=== PATIENT | female | born 1965 | race Caucasian/White ===

== ENCOUNTER 2023-12-29 16:24 | Outpatient (OUT) | payer OTHER, SELFPAY ==
--- NOTE | 2023-12-29 16:25 | XR_ITS ---
The [address] [address] Patient Name: JOSÉ MIGUEL JOHNSON MRN: [id number] date: 1965 Sex: F Assigned Patient Location: RAD Current Patient Location: RAD Accession/Order Number: [id number] Exam Date: 12/29/2023 16:28 Report Date: 12/29/2023 16:47 At the request of: DAVID HERMOSILLO Procedure: XR chest 2V EXAM: XR chest 2V HISTORY: chronic cough R05.3 for 3 months. COMPARISON: 09/24/2017 TECHNIQUE: Upright PA and lateral chest x-ray FINDINGS: The heart is not enlarged and the vasculature is not distended. Focal atelectasis or scarring projects from the right hilum into the midline, which is unchanged. No acute infiltrate, effusion or pneumothorax is identified. Degenerative changes are seen in the spine. Hardware projects over the lower cervical spine. XR/XR chest 2V IMPRESSION: No acute infiltrate or evidence of cardiac decompensation. A small amount of atelectasis or scarring is seen in the right midlung. The overall appearance of the chest has not changed significantly. Electronically authenticated by: ADAMARIS DE LEON Date: 12/29/2023 16:47
== END 2023-12-29 16:25 | disposition home or self-care (01) ==
LOC: RAD 16:24
PROVIDERS: Visit Provider Family Medicine
DX: R05.3 Chronic cough (principal)
CPT/HCPCS: 71046

== ENCOUNTER 2024-01-16 08:39 | Outpatient (OUT) | payer OTHER, SELFPAY ==
--- NOTE | 2024-01-16 08:41 | CT_ITS ---
[address] [address] Patient Name: JOSÉ MIGUEL JOHNSON MRN: [id number] date: 1965 Sex: F Assigned Patient Location: CT Current Patient Location: CT Accession/Order Number: [id number] Exam Date: 01/16/2024 08:45 Report Date: 01/16/2024 09:22 At the request of: DAVID HERMOSILLO Procedure: CT chest wo con EXAMINATION: CT chest wo con HISTORY: chronic cough COMPARISON: No relevant comparison available. TECHNIQUE: Multi-planar CT images were obtained without and/or with IV contrast as indicated by examination type. Axial, Coronal, and Sagittal images. Dose reduction techniques were achieved by using automated exposure control and/or adjustment of mA and/or kV according to patient size and/or use of iterative reconstruction technique. FINDINGS: LUNGS: No visible pulmonary disease. PLEURA: No mass, effusion, or pneumothorax. VASCULATURE: No abnormality. OBDULIA: No mass or adenopathy. MEDIASTINUM: No mass or adenopathy. CARDIAC: No enlargement, pericardial thickening, or significant calcification. AORTA: No aneurysm or dissection. CHEST WALL: No mass or axillary adenopathy. BONES: No bone lesion or fracture. LIMITED ABDOMEN: No suspicious findings Limited images of the upper abdomen. OTHER: Negative. CT/CT chest wo con IMPRESSION: 1. No abnormal or suspicious findings to account for patient's symptoms. Electronically authenticated by: FILIBERTO LANDON Date: 01/16/2024 09:22
== END 2024-01-16 08:40 | disposition home or self-care (01) ==
LOC: CT 08:40
PROVIDERS: Visit Provider Family Medicine
DX: R05.3 Chronic cough (principal)
CPT/HCPCS: 71250

== ENCOUNTER 2024-03-05 08:32 | Outpatient (OUT) | payer OTHER, SELFPAY ==
--- OUTSIDE RECORDS SUMMARY | 2024-03-05 08:35 | XMS_ITS | CCD ---
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 Role Phone PHYSICIAN, DEFAULT Unavailable Unavailable PHYSICIAN, DEFAULT Unavailable Unavailable HOY, DAVID Unavailable Unavailable PHYSICIAN, DEFAULT Unavailable Unavailable PHYSICIAN, DEFAULT Unavailable Unavailable HOY, DAVID Unavailable Unavailable HOY ., DR HERNANDEZ Primary Care Unavailable ZIEBER, DR AMADOU [employer] Unavailable HIGHLANDER, PETER D Admitting Unavailable HIGHLANDER, PETER D Attending Unavailable HIGHLANDER, PETER D Consulting Unavailable HOY ., DR HERNANDEZ Primary Care Unavailable ZIEBER, DR AMADOU [employer] Unavailable HIGHLANDER, PETER D Admitting Unavailable HIGHLANDER, PETER D Attending Unavailable HIGHLANDER, PETER D Consulting Unavailable HOY ., DR HERNANDEZ Primary Care Unavailable HOY ., DR HERNANDEZ Attending Unavailable HOY ., DR HERNANDEZ Admitting Unavailable HOY ., DR HERNANDEZ Consulting Unavailable HOY ., DR HERNANDEZ Primary Care Unavailable ZIEBER, DR AMADOU [employer] Unavailable RADHA, JAIRO Attending Unavailable RADHA, JAIRO Admitting Unavailable RADHA, JAIRO Consulting Unavailable HOY ., DR HERNANDEZ Primary Care Unavailable ZIEBER, DR AMADOU [employer] Unavailable RADHA, JAIRO Admitting Unavailable RADHA, JAIRO Attending Unavailable RADHA, JAIRO Consulting Unavailable HOY ., DR HERNANDEZ Primary Care Unavailable ZIEBER, DR AMADOU [employer] Unavailable HIGHLANDER, PETER D Admitting Unavailable HIGHLANDER, PETER D Attending Unavailable HIGHLANDER, PETER D Consulting Unavailable GABINO LOPES Consulting Unavailable GEMMA .MAXIMILIANO Consulting Unavailable LUZ HAMMOND Consulting Unava MATTY Stevens Consulting Unavailable HOY ., DR HERNANDEZ Primary Care Unavailable HIGHLANDER, PETER D Admitting Unavailable HIGHLANDER, PETER D Consulting Unavailable HIGHLANDER, PETER D Attending Unavailable HOY ., DR HERNANDEZ Primary Care Unavailable HIGHLANDER, PETER D Admitting Unavailable HIGHLANDER, PETER D Attending Unavailable HOY ., DR HERNANDEZ Consulting Unavailable HOY ., DR HERNANDEZ Attending Unavailable HOY ., DR HERNANDEZ Admitting Unavailable HOY ., DR HERNANDEZ Primary Care Unavailable HOY ., DR HERNANDEZ Consulting Unavailable HOY ., DR HERNANDEZ Attending Unavailable HOY ., DR HERNANDEZ Admitting Unavailable HOY ., DR HERNANDEZ Primary Care Unavailable ZIEBER, DR AMADOU [employer] Unavailable RADHA, JAIRO Admitting Unavailable RADHA, JAIRO Consulting Unavailable RADHA, JAIRO Attending Unavailable HOY ., DR HERNANDEZ Primary Care Unavailable FEIDERBUZZ Consulting Unavailable HOY ., DR HERNANDEZ Primary Care Unavailable ZIEBER, DR AMADOU [employer] Unavailable HIGHLANDER, PETER D Admitting Unavailable HIGHLANDER, PETER D Attending Unavailable HIGHLANDER, PETER D Consulting Unavailable HOY ., DR HERNANDEZ Primary Care Unavailable ZIEBER, DR AMADOU [employer] Unavailable HIGHLANDER, PETER D Admitting Unavailable HIGHLANDER, PETER D Attending Unavailable HIGHLANDER, PETER D Consulting Unavailable HOY ., DR HERNANDEZ Primary Care Unavailable BENEDICT, DR DE LOS SANTOS Consulting Unavailable BENEDICT, DR DE LOS SANTOS Attending Unavailable BENEDICT, DR DE LOS SANTOS Admitting Unavailable YEH, ANDREW Consulting Unavailable Problems Active Problems Problem Classification Problem Date Documented Date Episodic/Chronic Acquired foot deformities (6 sources) Hallux rigidus, left foot; Translations: [Other hammer toe(s) (acquired), left foot] Onset: 10-11-2022 Chronic Osteoarthritis (4 sources) Primary osteoarthritis, left ankle and foot; Translations: [PRIMARY OSTEOARTHRITIS LT ANK FOOT] Onset: 03-10-2023 Chronic Other screening for suspected conditions (not mental disorders or infectious disease) (1 source) Encounter for screening mammogram for malignant neoplasm of breast; Translations: [ENC SCR MAMMO MALIG NEOPLASM BREAST] Onset: 02-27-2023 Episodic Residual codes; unclassified (4 sources) Obstructive sleep apnea (adult) (pediatric); Translations: [OBSTRUCTIVE SLEEP APNEA] Onset: 03-03-2023 Chronic Residual codes; unclassified (1 source) Family history of malignant neoplasm of breast; Translations: [FAMILY HX MALIG NEOPLASM OF BREAST] Onset: 02-27-2023 Episodic Residual codes; unclassified (1 source) Family history of malignant neoplasm of digestive organs; Translations: [FAM HX MALIG NEOPLASM DIGESTIV ORGN] Onset: 02-27-2023 Episodic Unclassified (4 sources) CONTACT W/AND (SUSP) EXPOS COVID-19; Translations: [CONTACT W/AND (SUSP) EXPOS COVID-19] Onset: 10-31-2022 Unclassified (1 source) COUGH, UNSPECIFIED; Translations: [COUGH, UNSPECIFIED] Onset: 11-30-2022 Past or Other Problems Problem Classification Problem Date Documented Da te Episodic/Chronic Conditions associated with dizziness or vertigo (4 sources) Dizziness and giddiness; Translations: [DIZZINESS AND GIDDINESS] Onset: 11-19-2022 Episodic Other connective tissue disease (1 source) Arthrodesis status; Translations: [ARTHRODESIS STATUS] Onset: 12-04-2022 Episodic Other connective tissue disease (4 sources) Other specified soft tissue disorders; Translations: [OTHER SPEC SOFT TISSUE DISORDERS] Onset: 10-30-2022 Episodic Other connective tissue disease (5 sources) Pain in right foot; Translations: [PAIN IN RIGHT FOOT] Onset: 03-26-2022 Episodic Other non-traumatic joint disorders (1 source) Other specified joint disorders, left ankle and foot; Translations: [OTHER SPEC JOINT D/O LT ANKLE FOOT] Onset: 10-27-2022 Episodic Other non-traumatic joint disorders (4 sources) Pain in right ankle and joints of right foot; Translations: [PAIN IN RIGHT ANKLE] Onset: 06-25-2022 Episodic Other upper respiratory disease (1 source) Nasal congestion; Translations: [NASAL CONGESTION] Onset: 11-30-2022 Episodic Unclassified (1 source) CONTACT W/AND (SUSP) EXPOS COVID-19; Translations: [CONTACT W/AND (SUSP) EXPOS COVID-19] Onset: 11-28-2022 Results Test Name Value Interpretation Reference Range Facility INSULINon 02-24-2023 Insulin 19.8 uIU/mL Normal 2.6-24.9 [facility] Comment on above: Performed By: #### I NSULIN #### [facility] [address] [place] [id number] [address] Hunter Weaver CBC AUTO DIFFon 02-23-2023 BASO # 0.0 103/ul Normal 0.0-0.1 [facility] Comment on above: Performed By: #### C BC #### [facility] [address] [place] [address] Dr. Hunter Weaver Basophils/100 WBC (Bld) 0.3 % Normal 0.2-2.0 [facility] Comment on above: Performed By: #### C BC #### [facility] [address] [place] [address] Dr. Hunter Weaver EO # 0.1 103/ul Normal 0.0-0.7 [facility] Comment on above: Performed By: #### C BC #### [facility] [address] [place] [address] Dr. Hunter Weaver Eosinophils/100 WBC (Bld) 1.5 % Normal 0.9-7.0 [facility] Comment on above: Performed By: #### C BC #### [facility] [address] [place] [address] Dr. Hunter Weaver Erythrocyte distribution width (RBC) [Ratio] 12.3 % Normal 11.0-15.0 [facility] Comment on above: Performed By: #### C BC #### [facility] [address] [place] [address] Dr. Hunter Weaver Hematocrit (Bld) [Volume fraction] 40.4 % Normal 36.0-48.0 [facility] Comment on above: Performed By: #### C BC #### [facility] [address] [place] [address] Dr. Hunter Weaver Hemoglobin (Bld) [Mass/Vol] 13.5 g/dL Normal 12.0-16.0 [facility] Comment on above: Performed By: #### C BC #### [facility] [address] [place] [address] Dr. Hunter Weaver IG # 0.06 10e3/ul Critically high 0.00-0.03 [facility] Comment on above: Performed By: #### C BC #### [facility] [address] [place] [address] Dr. Hunter Weaver IG % 0.7 % Critically high 0.0-0.5 [facility] Comment on above: Performed By: #### C BC #### [facility] [address] [place] [address] Dr. Hunter Weaver LYMPH # 3.2 103/ul Normal 1.2-3.8 [facility] Comment on above: Performed By: #### C BC #### [facility] [address] [place] [address] Dr. Hunter Weaver Lymphocytes/100 WBC (Bld) 34.5 % Normal 20.5-60.0 [facility] Comment on above: Performed By: #### C BC #### [facility] [address] [place] [address] Dr. Hunter Weaver MANUAL DIFF REQ NO Normal [facility] Comment on above: Performed By: #### C BC #### [facility] [address] [place] [address] Dr. Hunter Weaver MCH (RBC) [Entitic mass] 31.3 pg Normal 26.7-34.0 [facility] Comment on above: Performed By: #### C BC #### [facility] [address] [place] [address] Dr. Hunter Weaver MCHC (RBC) [Mass/Vol] 33.4 g/dL Normal 29.9-35.2 [facility] Comment on above: Performed By: #### C BC #### [facility] [address] [place] [address] Dr. Hunter Weaver MCV (RBC) [Entitic vol] 93.5 fL Normal 81.0-99.0 [facility] Comment on above: Performed By: #### C BC #### [facility] [address] [place] [address] Dr. Hunter Weaver MONO # 0.6 103/ul Normal 0.3-0.8 [facility] Comment on above: Performed By: #### C BC #### [facility] [address] [place] [address] Dr. Hunter Weaver Monocytes/100 WBC (Bld) 6.4 % Normal 1.7-12.0 [facility] Comment on above: Performed By: #### C BC #### [facility] [address] [place] [address] Dr. Hunter Weaver NEUT # 5.2 103/ul Normal 1.4-6.5 [facility] Comment on above: Performed By: #### C BC #### [facility] [address] [address] [address] Hunter Weaver Neutrophils/100 WBC (Bld) 56.6 % Normal 43.0-75.0 [facility] Comment on above: Performed By: #### C BC #### [facility] [address] [address] [address] Hunter Weaver Platelet mean volume (Bld) [Entitic vol] 9.8 fL Normal 9.5-13.5 [facility] Comment on above: Performed By: #### C BC #### [facility] [address] [place] [address] Dr. Hunter Weaver PLT 285 103/ul Normal 150-450 [facility] Comment on above: Performed By: #### C BC #### [facility] [address] [place] [address] Dr. Hunter Weaver RBC 4.32 106/ul Normal 4.20-5.40 [facility] Comment on above: Performed By: #### C BC #### [facility] [address] [place] [address] Dr. Hunter Weaver WBC 9.2 103/ul Normal 4.0-11.0 [facility] Comment on above: Performed By: #### C BC #### [facility] [address] [place] [address] Dr. Hunter Weaver FREE THYROXINE INDEX T7on FTI 3.98 Normal 1.30-4.50 [facility] Comment on above: Performed By: #### C MP, LIPID, T7, TSH ####[facility] [address] [place] [address]Dr. Hunter Weaver T3U 39.0 % Normal 30.0-39.0 [facility] Comment on above: Performed By: #### C MP, LIPID, T7, TSH ####[facility] [address] [place] [id number]. Hunter Weaver T4 [Mass/Vol] 10.20 ug/dL Normal 4.80-13.90 [facility] Comment on above: Performed By: #### C MP, LIPID, T7, TSH ####[facility] [address] [place] [address]DrArt Weaver GLYCOHEMOGLOBIN A1Con 2022 ADA RECOMMENDATION SEE BELOW Normal [facility] Comment on above: Result Comment: ADA RECOMMENDED LIMIT 4.0 - 6.0 ADA THERAPEUTIC TARGET < 7.0 ACTION SUGGESTED > 7.0 Performed By: #### A 1C ####[facility] [address] [place] [address]DrArt Weaver Glucose [Mass/Vol] 111 mg/dL Normal [facility] Comment on above: Performed By: #### A 1C ####[facility] [address] [place] [address]DrArt Weaver HbA1c (Bld) [Mass fraction] 5.5 % Normal 4.5-6.2 [facility] Comment on above: Performed By: #### A 1C ####[facility] [address] [place] [address]DrArt Weaver IRONon 02-23-2023 Iron [Mass/Vol] 165.0 ug/dL Normal 50.0-170.0 [facility] Comment on above: Performed By: #### I MATTHEW #### [facility] [address] [address] [address] Hunter Weaver LIPID PROFILEon 02-23-2023 CHOL-HDL RATIO NORM SEE BELOW Normal [facility] Comment on above: Result Comment: 3.3 - 4.4 LOW RISK 4.4 - 7.1 AVERAGE RISK 7.1 - 11.0 MODERATE RISK >11.0 HIGH RISK Performed By: #### C MP, LIPID, T7, TSH ####[facility] [address] [place] [address]DrArt Weaver Cholesterol [Mass/Vol] 192 mg/dL Normal <=200 [facility] Comment on above: Performed By: #### C MP, LIPID, T7, TSH ####[facility] [address] [place] [address]Dr. Hunter Weaver Cholesterol in HDL [Mass/Vol] 58 mg/dL Normal 40-60 [facility] Comment on above: Performed By: #### C MP, LIPID, T7, TSH ####[facility] [address] [place] [id number]. Hunter Weaver Cholesterol in LDL [Mass/Vol] 109.6 mg/dL Normal [facility] Comment on above: Performed By: #### C MP, LIPID, T7, TSH ####[facility] [address] [place] [phone]. Hunter Weaver Cholesterol.total/ Cholesterol in HDL [Mass ratio] 3.3 {ratio} Normal [facility] Comment on above: Performed By: #### C MP, LIPID, T7, TSH ####[facility] [address] [place] [id number]. Hunter Weaver HDL NORMAL > or = 60 mg/dl - LO W CARDIOVASCULAR RISK <40 mg/dl - HIGH CARDIOVASCULAR RISK Normal [facility] Comment on above: Performed By: #### C MP, LIPID, T7, TSH ####[facility] [address] [place] [id number]. Hunter Weaver LDL CALC NORMAL SEE BELOW Normal [facility] Comment on above: Result Comment: <100 mg/dl OPTIMAL 100 - 129 mg/dl NEAR OR ABOVE OPTIMAL 130 - 159 mg/dl BORDERLINE HIGH 160 - 189 mg/dl HIGH >190 mg/dl VERY HIGH Performed By: #### C MP, LIPID, T7, TSH ####[facility] [address] [place] [phone]. Hunter Weaver Triglyceride [Mass/Vol] 122 mg/dL Normal <=150 [facility] Comment on above: Performed By: #### C MP, LIPID, T7, TSH ####[facility] [address] [place] [phone]. Hutner Weaver VLDL CALC 24.4 mg/dL Normal [facility] Comment on above: Performed By: #### C MP, LIPID, T7, TSH ####[facility] [address] [place] [phone]. Hunter Weaver MG MAMM SCREEN 3D KHADAR CADon 02-23-2023 MG MAMM SCREEN 3D KHADAR CAD Patient: GISSELL FISHER Exam Date: 02/23/2023 : 1965 Gender:F Ordering : DR DAVID ALBRECHT . Admission #: [id number] Family : Order #: [id number] CLICK HERE TO VIEW EXAM RADIOLOGY REPORT PROCEDURE: MAMMOGRAM SCREENING 3D BILATERAL CAD COMPARISON: MG MAMM SCREEN 3D KHADAR CAD, 09/02/2021. MG MAMM SCREEN KHADAR W CAD, 08/08/2020. MG MAMM SCREEN KHADAR W CAD, 06/13/2019. DIGITIZED_MAMMO, 03/15/2009. INDICATIONS: Screening mammography Calculator Name NCI Breast Cancer Risk Assessment Tool 5 Year Breast Cancer Risk 2.00% Lifetime Breast Cancer Risk 11.50% Personal Breast Cancer No Personal Ovarian Cancer No Treatments None Family Cancers Grandmother-paternal with breast cancer at age 75; Mother with colon cancer at age 65. LOCATION: [facility] BREAST COMPOSITION: Heterogeneously dense,which may obscure small masses. FINDINGS: DIAGNOSTIC CATEGORY 2--BENIGN FINDING: RIGHT BREAST: No significant suspicious finding. Scattered benign-appearing nodules are present. No significant change has occurred. LEFT BREAST: No significant suspicious finding. Scattered benign-appearing nodules are present. Scattered benign-appearing calcifications are present. No significant change has occurred. RECOMMENDATIONS: ROUTINE MAMMOGRAM AND CLINICAL EVALUATION IN 12 MONTHS. PLEASE NOTE: A NORMAL MAMMOGRAM DOES NOT EXCLUDE THE POSSIBILITY OF BREAST CANCER. A CLINICALLY SUSPICIOUS PALPABLE LUMP SHOULD BE BIOPSIED. Dictated by: Amadou Scruggs M.D. on 02/23/2023 at 10:57 Approved by: Amadou Scruggs M.D. on 02/23/2023 at 11:02 Normal [facility] PROF 14(COMP METB)on 023 Albumin [Mass/Vol] 3.6 g/dL Normal 3.4-5.0 [facility] Comment on above: Performed By: #### C MP, LIPID, T7, TSH ####[facility] [address] [place], [place] [address]Xt. Haylieisa Weaver Albumin/Globulin [Mass ratio] 1.1 {ratio} Normal [facility] Comment on above: Performed By: #### C MP, LIPID, T7, TSH ####[facility] [address] [place] [address]Dr. Hunter Weaver ALP [Catalytic activity/Vol] 114 U/L Normal 46-116 [facility] Comment on above: Performed By: #### C MP, LIPID, T7, TSH ####[facility] [address] [place] [address]Dr. Hunter Weaver ALT [Catalytic activity/Vol] 20 U/L Normal 14-59 [facility] Comment on above: Performed By: #### C MP, LIPID, T7, TSH ####[facility] [address] [place] [address]Dr. Hunter Weaver Anion gap [Moles/Vol] 13.2 mmol/L Normal [facility] Comment on above: Performed By: #### C MP, LIPID, T7, TSH ####[facility] [address] [place] [address]Dr. Hunter Weaver AST [Catalytic activity/Vol] 17 U/L Normal 15-37 [facility] Comment on above: Performed By: #### C MP, LIPID, T7, TSH ####[facility] [address] [place], [place] [address]Dr. Hunter Weaver Bilirubin [Mass/Vol] 0.5 mg/dL Normal 0.2-1.0 [facility] Comment on above: Performed By: #### C MP, LIPID, T7, TSH ####[facility] [address] [place] [address]Dr. Hunter Weaver Calcium [Mass/Vol] 8.4 mg/dL Critically low 8.5-10.1 [facility] Comment on above: Performed By: #### C MP, LIPID, T7, TSH ####[facility] [address] [place] [address]Dr. Hunter Weaver Chloride [Moles/Vol] 105 mmol/L Normal 98-107 [facility] Comment on above: Performed By: #### C MP, LIPID, T7, TSH ####[facility] [address] [place] [address]Dr. Hunter Weaver CO2 [Moles/Vol] 28.7 mmol/L Normal 21.0-32.0 [facility] Comment on above: Performed By: #### C MP, LIPID, T7, TSH ####[facility] [address] [place] [address]Dr. Hunter Weaver Creatinine [Mass/Vol] 0.65 mg/dL Normal 0.55-1.02 [facility] Comment on above: Performed By: #### C MP, LIPID, T7, TSH ####[facility] [address] [place] [address]Dr. Hunter Weaver EGFR-AF CITIZEN OF [place] >60 Normal >=60 [facility] Comment on above: Performed By: #### C MP, LIPID, T7, TSH ####[facility] [address] [place] [address]Dr. Hunter Weaver EGFR-NON AF CITIZEN OF THE [place] >60 Normal >=60 [facility] Comment on above: Performed By: #### C MP, LIPID, T7, TSH ####[facility] [address] [place] [address]Dr. Hunter Weaver Globulin (S) [Mass/Vol] 3.3 g/dL Normal [facility] Comment on above: Performed By: #### C MP, LIPID, T7, TSH ####[facility] [address] [place] [address]Dr. Hunter Weaver Glucose [Mass/Vol] 122 mg/dL Critically high 74-106 T [facility] Comment on above: Performed By: #### C MP, LIPID, T7, TSH ####[facility] [address] [place] [phone]. Hunter Weaver Potassium [Moles/Vol] 3.9 mmol/L Normal 3.5-5.1 [facility] Comment on above: Performed By: #### C MP, LIPID, T7, TSH ####[facility] [address] [place] [address]Dr. Hunter Weaver Protein [Mass/Vol] 6.9 g/dL Normal 6.4-8.2 [facility] Comment on above: Performed By: #### C MP, LIPID, T7, TSH ####[facility] [address] [place] [phone]. Hunter Weaver Sodium [Moles/Vol] 143 mmol/L Normal 136-145 [facility] Comment on above: Performed By: #### C MP, LIPID, T7, TSH ####[facility] [address] [place] [phone]. Hunter Weaver Urea nitrogen [Mass/Vol] 12.0 mg/dL Normal 7.0-18.0 [facility] Comment on above: Performed By: #### C MP, LIPID, T7, TSH ####[facility] [address] [place] [address]Dr. Hunter Weaver Urea nitrogen/Creatinin e [Mass ratio] 18.5 mg/mg Normal [facility] Comment on above: Performed By: #### C MP, LIPID, T7, TSH ####[facility] [address] [place] [address]Dr. Hunter Weaver TSHon 02-23-2023 TSH Qn m[IU]/L Critically low 0.358-3.740 [facility] Comment on above: Performed By: #### C MP, LIPID, T7, TSH ####[facility] [address] [place] [address]Dr. Hunter Weaver Covid-19 PCR (CVDTB)on SARS-CoV-2 (COVID-19) RNA CHRIS+probe Ql (Unsp spec) Not detected Normal NOT DETECTED [facility] Comment on above: Result Comment: When diagnostic testing is negative, the possibility of a false negative should be considered in the context of a patient's recent exposures and the presence of clinical signs and symptoms consistent with SARS-CoV-2. This test is not yet approved or cleared by the [place] FDA. When there are no FDA-approved or cleared tests available, and other criteria are met, FDA can make tests available under an emergency access mechanism called an Emergency Use Authorization (EUA). The EUA for this test is supported by the [place] of Health and Human Service's declaration that circumstances exist to justify the emergency use of in vitro diagnostics for the detection and/or diagnosis of the virus that causes COVID-19. This EUA will remain in effect for the duration of the COVID-19 declaration justifying emergency of IVDs, unless it is terminated or revoked by the FDA (after which the test may no longer be used). Performed By: #### C VDTB ####[facility] [address] [place], [place] [address]WtDr. Hunter Weaver INFLUENZA A AND B AGon 11-28 DOWN [facility] SEE BELOW Normal [facility] Comment on above: Result Comment: Nega tive for Flu A protein angiten. Infection due to Flu A cannot be ruled out. Flu A angiten in the sample may be below the detection limit of the test. Performed By: #### I NFLUAB #### [facility] [address] [place] [address] Dr. Hunter Weaver [facility] SEE BELOW Normal [facility] Comment on above: Result Comment: Nega tive for Flu B protein antigen. Infection due to Flu B cannot be ruled out. Flu B antigen in the sample may be below the detection limit of the test. Performed By: #### I NFLUAB #### [facility] [address] [place] [address] Dr. Hunter Weaver INFLUENZA A AG Negative Normal NEGATIVE SEE COMMENT [facility] Comment on above: Performed By: #### I NFLUAB #### [facility] [address] [place] [address] Dr. Hunter Weaver INFLUENZA B AG Negative Normal NEGATIVE SEE COMMENT [facility] Comment on above: Performed By: #### I NFLUAB #### [facility] [address] [place] [address] Dr. Hunter Weaver MRA NECK WO CONon 11-20-2022 MRA NECK WO CON EXAMINATION: MRI BRA IN WO CON, MRA NECK WO CON, MRA HEAD WO CON HISTORY: Dizziness and giddiness COMPARISON: None. TECHNIQUE: Multiplanar, multisequence MRI images of the brain were obtained without contrast. MR angiogram of the head and neck were obtained with [id number]-os-ugrmej technique, with maximum intensity projection images. FINDINGS: MRI BRAIN: No restricted diffusion. No foci of abnormal signal. Ventricles and sulci normal in size. No hydrocephalus. There is no midline shift, mass effect, or abnormal extraaxial fluid collections. Pituitary gland is not abnormally enlarged. There is no evidence for a Chiari I malformation. The orbital apices are clear. The flow voids of the unga of Doyle are visualized, implying that the vessels are patent. MRA BRAIN: Flow in all major intracranial arteries without flow limiting stenosis or occlusion. No appreciable intracranial aneurysms or vascular malformations. MRA NECK: The aortic arch and origins of the great vessels are not included in the atdjl-xe-ndhn secondary to noncontrast technique. Carotid bifurcations are normal. Included segments of the vertebral arteries are widely patent without stenosis. IMPRESSION: 1. Negative for acute infarct or acute process in the brain. No hydrocephalus or mass effect. 2. No stenosis of the intracranial arteries. 3. No stenosis of the carotid arteries by NASCET criteria. Vertebral arteries are patent. Electronically authenticated by: ANDREW PARIKH Date: 2022-11-19 22:12 Normal [facility] US TAISHA DOP LEG LTon 10-30-20 US TAISHA DOP LEG LT EXAMINATION: US TAISHA DOP LEG LT HISTORY: Disorder of soft tissue ; bruising distal to the knee COMPARISON: No relevant comparison available. FINDINGS: REGION: Left lower extremity THROMBI: None. COMPRESSIBILITY: Normal compressibility. FLOW: Normal waveform and antegrade flow between 5 and 20 cm/s. OTHER: 1.6 x 1.3 x 0.9 cm hyperechoic area deep to the skin surface within the subcutaneous fat corresponding to patient's area of bruising. IMPRESSION: 1. No deep vein thrombus within the left lower extremity. 2. Hyperechoic area within subcutaneous fat corresponding to patient's area of bruising; possible hematoma. Follow-up and biopsy should be considered if bruising does not resolve. Electronically authenticated by: AMADOU SCRUGGS Date: 2022-10-30 11:58 Normal [facility] POINT OF CARE GLUCOSEon 09-24 Glucose [Mass/Vol] 129 mg/dL Critically high 74-106 [facility] Comment on above: Performed By: #### P OCGLUC #### [facility] [address] [address] [address] Hunter Weaver Glucose [Mass/Vol] 117 mg/dL Critically high 74-106 [facility] Comment on above: Performed By: #### P OCGLUC #### [facility] [address] [address] [address] Hunter Weaver Covid-19 PCR ([facility])on 09-24 SARS-CoV-2 (COVID-19) RNA CHRIS+probe Ql (Unsp spec) Not detected Normal NOT DETECTED [facility] Comment on above: Result Comment: This test is not yet approved or cleared by the [place] FDA. When there are no FDA-approved or cleared tests available, and other criteria are met, FDA can make tests available under an emergency access mechanism called an Emergency Use Authorization (EUA). The EUA for this test is supported by the [employer] Sql [employer] of Health and Human Service's (HHS's) declaration that circumstances exist to justify the emergency use of in vitro diagnostics for the detection and/or diagnosis of the virus that causes COVID-19. This EUA will remain in effect (meaning this test can be used) for the duration of the COVID-19 declaration justifying emergency of IVDs, unless it is terminated or revoked by FDA (after which the test may no longer be used). When diagnostic testing is negative, the possibility of a false negative should be considered in the context of a patient's recent exposures and the presence of clinical signs and symptoms consistent with SARS-CoV-2. Performed By: #### C VDTBH #### [facility] [address] [place], [place] [address] Dr. Hunter Weaver Ambulatory Clinical Summaryo n 10-08-2021 Ambulatory Clinical Summary {[id number]}CD:[id number] Normal [facility] General Surgery Office/Clini c Noteon 10-08-2021 General Surgery Office/Clinic Note Chief Complaint post operative follow up HPI Staff 6 day post operative follow up post colonoscopy with transverse polypectomy. History of Present Illness f/u after colonoscopy, small transverse colon polyp removed, hyperplastic; doing well, no abdominal pain or blood in stools; some constipation. Review of Systems ROS - Provider Constitutional: no fever, no sweats, no weight loss. Eyes: no glasses, no blurred vision, no visual loss. ENMT: no dentures, no hoarseness, no swallowing difficulties, no hearing loss, no ear infection(s), no nose bleeds. Cardiovascular: normal blood pressure, no chest pain, regular heartbeat, no heart murmur. Respiratory: no shortness of breath, no cough, no asthma, no wheezing. Gastrointestinal: no nausea, no vomiting, no diarrhea, no constipation, no blood in stool, no change in bowel habits, no abdominal pain, no hepatitis. Genitourinary: no kidney stones, no urine infection, no dysuria. Musculoskeletal: no pain, no weakness. Skin: no changing moles, no rash, no skin lumps. Neurologic: no seizures, no epilepsy, no headache. Psychiatric: no emotional or psychiatric problem. Heme/Lymph: no bleeding problems, no anemia, no blood clots, no transfusions. Allergy/Immunologic: no swollen lymph nodes/glands, no IV drug abuse. Other: Additional ROS info: Except as noted in the above Review of Systems and in the History of Present Illness, all other systems have been reviewed and are negative or noncontributory. Physical Exam Vitals & Measurements T: 36.2 ?C (Temporal Artery) Assessment/Plan 1. Family history of colon cancer (Z80.0: Family history of malignant neoplasm of digestive organs) doing well; recommend f/u colonoscopy in 5 years; call sooner if problems/questions. Follow-up No qualifying data available Problem List/Past Medical History Ongoing Arthritis BMI 32.0-32.9,adult Carpal tunnel syndrome Chronic GERD Chronic low back pain Connective tissue disease, undifferentiated Degenerative cervical disc Family history of colon cancer Fibrocystic breast disease Fibromyalgia GERD without esophagitis Hiatal hernia Irritable bowel Multiple lipomas Osteopenia Historical No qualifying data Procedure/Surgical History Colonoscopy (10/02/2021), Biopsy of breast (02/24/2018), Carpal tunnel release (11/07/2015), Excision of lipoma (10/04/2013), Colonoscopy (03/14/2013), EGD - Esophagogastroduodenoscopy (03/14/2013), Arthroscopy of shoulder, Cholecystectomy, History of cervical spine surgery. Medications Mobic 15 mg Tab, Oral, Daily tiZANidine 4 mg Tab, Oral, q8hr Allergies No Known Allergies Social History Alcohol Current, Beer, 1-2 times per week, 09/03/2021 Substance Abuse - Denies Substance Abuse, 09/03/2021 Tobacco Never (less than 100 in lifetime) Tobacco Use:. Never Smokeless Tobacco Use:., 09/03/2021 Family History COPD: Mother. Cardiac arrest: Father. Hypothyroidism: Sister. Primary malignant neoplasm of colon: Mother. Immunizations Vaccine Date Status SARS-CoV-2 (COVID-19) Ad26 vaccine 03/02/2021 Recorded SARS-CoV-2 (COVID-19) Ad26 vaccine 02/09/2021 Recorded Normal [facility] Comment on above: Result Comment: Elec tronically Signed By: NAKUL WAYNE, Esau Hutson\Date and Time Signed: 10/08/21 16:11 EST Reminderson 10-08-2021 Reminders - From: Ariana Bush LPN To: N - Clinical; Sent: 10/08/2021 16:23:03 EST Show up: 09/01/2026 08:00:00 EDT Subject: colonoscopy recall Due Date/Time: 10/02/2026 08:00:00 EST Reminder/Recall Patient is due to repeat colonoscopy 10/02/2026 due to family history of colon cancer. Normal [facility] Pathology Noteon 10-07-2021 Pathology Note [id number]:127 Normal [facility] Outside Colonoscopyon 2020 Outside Colonoscopy [id number]:127 Normal [facility] Lab Reportson 09-30-2021 Lab Reports [id number]:127 Normal [facility] Formson 09-05-2021 Forms [id number]#[id number]:127 Normal [facility] 04, 2021 David Albrecht, [employer] [facility] [place] [address] [place] [address] Re: GISSELL FISHER Date of : 1965 Thank you for your referral of Gissell Fisher who was seen on consultation on 09/03/2021 for colonoscopy. I have enclosed my consultation note for your review. I will be happy to follow Gissell. Sincerely, Esau Rashid MD General Surgery [facility] Ambulatory Clinical Summaryo n 09-03-2021 Ambulatory Clinical Summary {[id number]}CD:[id number] [facility] Physician Referralon 021 Physician Referral [id number]:127 [facility] Encounters Encounter Date Encounter Type Care Provider Facility Start: 03-10-2023 End: 03-11-2023 ambulatory JAIRO GARCIA Facility:[facility] Start: 03-03-2023 End: 03-04-[address] DAVID ALBRECHT . Facility:[facility] Start: 02-27-2023 Encounter for genera l adult medical examination without abnormal findings DR DAVID ALBRECHT . [facility] Start: 02-23-2023 End: 02-24-[address] DAVID ALBRECHT . Facility:[facility] Start: 02-23-2023 End: 02-24-2023 Encounter for general adult medical examination without abnormal findings DR DAVID ALBRECHT . Facility:[facility] Start: 12-23-2022 End: 12-24-[address] DAVID ALBRECHT . Facility:[facility] Start: 12-02-2022 End: 12-03-[address] DAVID ALBRECHT . Facility:[facility] Start: 11-28-2022 End: 11-28-[address] DAVID ALBRECHT . Facility:[facility] Start: 11-19-2022 End: 11-20-[address] DAVID ALBRECHT . Facility:[facility] Start: 11-12-2022 End: 11-13-[address] DAVID ALBRECHT . Facility:[facility] Start: 10-31-2022 Encounter for prepro cedural laboratory examination ADAMARIS STEWART [facility] Start: 10-30-2022 End: 10-31-[address] DAVID ALBRECHT . Facility:[facility] Start: 10-20-2022 End: 10-20-[address] DAVID ALBRECHT . Facility:[facility] Start: 10-15-2022 End: 10-16-[address] DAVID ALBRECHT . Facility:[facility] Start: 10-15-2022 End: 10-16-2022 Encounter for preprocedural laboratory examination DR DAVID ALBRECHT . Facility:[facility] Start: 10-11-2022 Encounter for other preprocedural examination ADAMARIS STEWART [facility] Start: 10-08-2022 End: 10-09-[address] DAVID ALBRECHT . Facility:[facility] Start: 10-08-2022 End: 10-09-2022 Encounter for other preprocedural examination DR DAVID ALBRECHT . Facility:[facility] Start: 06-25-2022 End: 06-26-[address] DAVID ALBRECHT . Facility:[facility] Start: 03-26-2022 End: 03-27-[address] DAVID ALBRECHT . Facility: Start: 09-29-2017 End: 09-30-2017 Ambulatory DEFAULT PHYSICIAN Facility:[facility] Start: 09-28-2017 End: 09-29-2017 Ambulatory DEFAULT PHYSICIAN Facility:[facility] Payers Date Payer Category Payer Unknown [id number] 2.16.84 [id number] 1965 Unknown [id number] 2.16.84 [id number] 1965 Unknown [id number] 2.16.84 [id number] 1965 Unknown [id number] 2.16.84 [id number] 1965 Unknown [id number] 2.16.84 [id number] 1965 Unknown [id number] 2.16.84 [id number] 1965 Unknown [id number] 2.16.84 [id number] 1965 Unknown [id number] 2.16.84 [id number] 1965 Unknown [id number] 2.16.84 [id number] 1965 Unknown [id number] 2.16.84 [id number] 1965 Unknown [id number] 2.16.84 [id number] 1965 Unknown [id number] 2.16.84 [id number] 1965 Unknown [id number] 2.16.84 [id number] 1965 Unknown [id number] 2.16.84 [id number] 1960 Private Health Insurance [id number] Unknown Clinical Note 03-10-2023 Note Date & Type Note Facility 03-10-2023 Note PROCEDURE: XR FOOT L T MIN 3 VIEWS DATE: 03/10/2023 2:20 PM CDT COMPARISONS: 12/23/2022 CLINICAL INDICATION: Pain in left foot FINDINGS: There is no evidence of fractures or other acute osseous abnormalities. There is fusion of the first metatarsal phalangeal joint, similar to previous exam. This involves the dorsal plate fixed by screws and an oblique longitudinal screw traversing the joint space. Osseous structures are in good alignment and stable alignment. Postop hardware remains in stable position. There are 2 screws of the distal second metatarsal, stable. There are scattered interphalangeal degenerative change. It appears there is postop change distal aspect of the second proximal phalanx, stable There are small spur off the posterior inferior os calcis. There is spurring off the posterior os calcis at the attachment of the Achilles. IMPRESSION: Stable postoperative changes of the left foot. No evidence of acute osseous abnormalities. . Electronically authenticated by: BUZZ ROCA Date: 2023-03-10 15:46 [facility] Clinical Note 12-23-2022 Note Date & Type Note Facility 12-23-2022 Note PROCEDURE: XR FOOT L T MIN 3 VIEWS HISTORY: Pain in left foot COMPARISON: XR foot left 12/02/2022 FINDINGS: BONES:Mechanical fusion of the first metatarsophalangeal joint via dorsal plate and screws. 2 screws within head of second metatarsal. Resection of head of second proximal phalanx. Large degenerative enthesophyte at Achilles tendon insertion into calcaneus. SOFT TISSUES:No visible soft tissue swelling. EFFUSION:None visible. OTHER: Negative. IMPRESSION: 1. Stable surgical changes without evidence of hardware failure or change in alignment. Electronically authenticated by: AMADOU SCRUGGS Date: 2022-12-23 10:52 [facility] Clinical Note 12-02-2022 Note Date & Type Note Facility 12-02-2022 Note PROCEDURE: XR FOOT L T MIN 3 VIEWS HISTORY: Pain in left foot COMPARISON: XR foot left 11/12/2022 FINDINGS: BONES:Mechanical fusion of the first metatarsophalangeal joint via dorsal plate and screws. Osteotomy and repair of second metatarsal head. Resection of head of second proximal phalanx. SOFT TISSUES:Mild dorsal soft tissue swelling. Skin darrel have been removed. EFFUSION:None visible. OTHER: Negative. IMPRESSION: 1. Stable surgical changes without evidence of hardware failure or change in alignment. Electronically authenticated by: AMADOU SCRUGGS Date: 2022-12-02 13:46 [facility] Clinical Note 11-14-2022 Note Date & Type Note Facility 11-14-2022 Note PROCEDURE: XR FOOT L T MIN 3 VIEWS HISTORY: Pain in left foot COMPARISON: XR foot left 10/12/2022 FINDINGS: BONES:Mechanical fusion of the first metatarsophalangeal joint. Osteotomy and repair of head of second metatarsal. Resection of the head of the second proximal phalanx. Prominent calcaneal plantar and Achilles tendon degenerative enthesophytes. SOFT TISSUES:Moderate soft tissue swelling. Dorsal skin darrel. EFFUSION:None visible. OTHER: Negative. IMPRESSION: 1. Stable surgical changes without evidence of hardware failure or change in alignment. 2. Mild/moderate soft tissue swelling with skin darrel still remaining. Electronically authenticated by: AMADOU SCRUGGS Date: 2022-11-13 22:19 [facility] Clinical Note 10-20-2022 Note Date & Type Note Facility 10-20-2022 Note PROCEDURE: XR FOOT L T 2V HISTORY: Pain COMPARISON: XR foot bilateral 10/31/2021 FINDINGS: BONES:Multiple intraoperative spot fluoroscopic images demonstrate mechanical fusion of the first metatarsophalangeal joint via dorsal plate and screws. Osteotomy and reattachment involving head of second metatarsal. Resection of head of second proximal phalanx. SOFT TISSUES:Expected intraoperative findings. IMPRESSION: 1. Mechanical fusion of first metatarsophalangeal joint. 2. Repair of second toe. Electronically authenticated by: AMADOU SCRUGGS Date: 2022-10-20 20:02 [facility] Clinical Note 10-20-2022 Note Date & Type Note Facility 10-20-2022 Note PROCEDURE: XR FOOT L T MIN 3 VIEWS HISTORY: Pain COMPARISON: XR foot left 10/31/2021, 10/20/2022 FINDINGS: BONES:Mechanical fusion of the first metatarsophalangeal joint via dorsal plate and screws. Repair at second metatarsal head via 2 attaching screws. SOFT TISSUES:Distal dorsal soft tissue swelling and skin darrel. Images were obtained to cast material. EFFUSION:None visible. OTHER: Negative. IMPRESSION: 1. Surgical changes with stable alignment compared to intraoperative images. Electronically authenticated by: AMADOU SCRUGGS Date: 2022-10-20 16:31 [facility] Clinical Note 06-26-2022 Note Date & Type Note Facility 06-26-2022 Note PROCEDURE: XR ANKLE RT MIN 3 VIEWS, XR FOOT RT MIN 3 VIEWS HISTORY: Pain of right ankle joint ; postop fusion and hammertoe correction COMPARISON: XR foot right 03/26/2022 FINDINGS: BONES:Mechanical fusion of the first metatarsophalangeal joint via dorsal plate and screws. Osteotomy and repair of second metatarsal head via single screw. Increasing callus formation along the distal and medial articular surface of the head of the second metatarsal. Resection of head of second proximal phalanx. Unremarkable ankle joint. SOFT TISSUES:No visible soft tissue swelling. EFFUSION:None visible. OTHER: Negative. IMPRESSION: 1. Stable surgical changes without hardware failure or change in alignment. 2. Unremarkable ankle joint. Electronically authenticated by: AMADOU SCRUGGS Date: 2022-06-26 06:40 [facility] Clinical Note 06-26-2022 Note Date & Type Note Facility 06-26-2022 Note PROCEDURE: XR ANKLE RT MIN 3 VIEWS, XR FOOT RT MIN 3 VIEWS HISTORY: Pain of right ankle joint ; postop fusion and hammertoe correction COMPARISON: XR foot right 03/26/2022 FINDINGS: BONES:Mechanical fusion of the first metatarsophalangeal joint via dorsal plate and screws. Osteotomy and repair of second metatarsal head via single screw. Increasing callus formation along the distal and medial articular surface of the head of the second metatarsal. Resection of head of second proximal phalanx. Unremarkable ankle joint. SOFT TISSUES:No visible soft tissue swelling. EFFUSION:None visible. OTHER: Negative. IMPRESSION: 1. Stable surgical changes without hardware failure or change in alignment. 2. Unremarkable ankle joint. Electronically authenticated by: AMADOU SCRUGGS Date: 2022-06-26 06:40 [facility] Clinical Note 03-26-2022 Note Date & Type Note Facility 03-26-2022 Note PROCEDURE: XR FOOT R T MIN 3 VIEWS HISTORY: Pain in right foot COMPARISON: XR foot right 02/12/2022 FINDINGS: BONES:Mechanical fusion of the first metatarsophalangeal joint without evidence of hardware fracture or loosening. Osteotomy and repair of head of second metatarsal. Resection of head of second proximal phalanx. SOFT TISSUES:No visible soft tissue swelling. EFFUSION:None visible. OTHER: Negative. IMPRESSION: 1. Stable surgical changes without evidence of hardware failure or change in alignment. Electronically authenticated by: AMADOU SCRUGGS Date: 2022-03-26 10:08 [facility] Clinical Note 09-04-2021 Note Date & Type Note Facility 09-04-2021 Note Chief Complaint consultation for colonoscopy HPI Staff 56 year old female presents on consultation form Dr. Albrecht for colonoscopy. Last colonoscopy completed 03/14/2013. Mother with colon cancer, age unknown. Denies abdominal or rectal pain. No rectal bleeding, nausea or vomiting. No recent change in bowel habits. No unintentional weight loss. History of Present Illness 56 yo female with h/o arthritis, cervical disc disease, referred for colonoscopy due to fmhx of colon cancer; denies changes in bms or blood in stools, no abdominal complaints; last colonoscopy in 2012 with spastic colon; abdominal operations significant for LS cholecystectomy; on meloxicam daily, no asa, no SBE prophylaxis; fmhx of colon ca in patient's mother,and 2 Aunts, all diagnosed in their 60s; fmhx of Crohn's disease in her cousin. no tobacco use. Review of Systems PHQ Score Initial Depression Screen Score: 0 ROS - Provider Constitutional: no fever, no sweats, no weight loss. Eyes: no glasses, no blurred vision, no visual loss. ENMT: no dentures, no hoarseness, no swallowing difficulties, no hearing loss, no ear infection(s), no nose bleeds. Cardiovascular: normal blood pressure, no chest pain, regular heartbeat, no heart murmur. Respiratory: no shortness of breath, no cough, no asthma, no wheezing. Gastrointestinal: no nausea, no vomiting, no diarrhea, no constipation, no blood in stool, no change in bowel habits, no abdominal pain, no hepatitis. Genitourinary: no kidney stones, no urine infection, no dysuria. Musculoskeletal: no pain, no weakness. Skin: no changing moles, no rash, no skin lumps. Neurologic: no seizures, no epilepsy, no headache. Psychiatric: no emotional or psychiatric problem. Heme/Lymph: no bleeding problems, no anemia, no blood clots, no transfusions. Allergy/Immunologic: no swollen lymph nodes/glands, no IV drug abuse. Other: Additional ROS info: Except as noted in the above Review of Systems and in the History of Present Illness, all other systems have been reviewed and are negative or noncontributory. Physical Exam Vitals & Measurements T: 36.2 ?C (Temporal Artery) HR: 68(Peripheral) RR: 16 BP: 122/80 HT: 162.6 cm HT: 162.56 cm WT: 85.2 kg WT: 85.2 kg BMI: 32.24 HEENT: normal conjunctiva, sclera clear, no scleral icterus, EOM intact, PERRLA, oral mucosa moist without lesions. Neck: trachea midline, no mass, symmetric, no thyromegaly or nodules, no adenopathy Respiratory: lungs CTA, respirations non labored. Cardiovascular: regular rate and rhythm, no murmur, no pedal edema or varicosities. Gastrointestinal: obese, soft, non distended, no tenderness, no masses, no palpable hernias, diastasis recti no, no hepatosplenomegaly; normal bs Lymphatic: no cervical adenopathy, no axillary adenopathy, no inguinal adenopathy. Musculoskeletal: normal gait, digits and nails without infection, nodes, cyanosis, clubbing. Skin: no rashes, no lesions, no ulcers, no subcutaneous nodules, induration. Psychiatric/Neuro: oriented to time, place, person, judgement normal, affect appropriate for age, insight intact, no focal deficits. Tests: , review of old records completed, Discussed surgical options, risks, and possible complications with patient. Assessment/Plan 1. Family history of colon cancer (Z80.0: Family history of malignant neoplasm of digestive organs) plan colonoscopy under anesthesia, informed consent obtained. 2. BMI 32.0-32.9,adult (Z68.32: Body mass index [BMI] 32.0-32.9, adult) recommend diet and exercise. Follow-up No qualifying data available Problem List/Past Medical History Ongoing Arthritis BMI 32.0-32.9,adult Carpal tunnel syndrome Chronic GERD Chronic low back pain Connective tissue disease, undifferentiated Degenerative cervical disc Family history of colon cancer Fibrocystic breast disease Fibromyalgia GERD without esophagitis Hiatal hernia Irritable bowel Multiple lipomas Osteopenia Historical No qualifying data Procedure/Surgical History Biopsy of breast (02/24/2018), Carpal tunnel release (11/07/2015), Excision of lipoma (10/04/2013), Colonoscopy (03/14/2013), EGD - Esophagogastroduodenoscopy (03/14/2013), Arthroscopy of shoulder, Cholecystectomy, History of cervical spine surgery. Medications Mobic 15 mg Tab, Oral, Daily tiZANidine 4 mg Tab, Oral, q8hr Allergies No Known Allergies Social History Alcohol Current, Beer, 1-2 times per week, 09/03/2021 Substance Abuse - Denies Substance Abuse, 09/03/2021 Tobacco Never (less than 100 in lifetime) Tobacco Use:. Never Smokeless Tobacco Use:., 09/03/2021 Family History COPD: Mother. Cardiac arrest: Father. Hypothyroidism: Sister. Primary malignant neoplasm of colon: Mother. Immunizations Vaccine Date Status SARS-CoV-2 (COVID-19) Ad26 vaccine 03/02/2021 Recorded SARS-CoV-2 (COVID-19) Ad26 vaccine 02/09/2021 Recorded [facility] Comment on above: Result Comment: Elec tronically Signed By: NAKUL WAYNE, Esau Hutson\Date and Time Signed: 09/03/21 22:01 EDT Summary Purpose Family History No Family History Records FoundNo Family History Records FoundNo Family History Records Found Advance Directives No Advanced Directives Records FoundNo Advanced Directives Records FoundNo Advanced Directives Records Found Additional Source Comments INFORMATION SOURCE (unrecogn ized section and content) DATE CREATED AUTHOR 05/18/2018 [facility] DATE CREATED AUTHOR AUTHOR'S ORGANIZ ATION 01/15/2022 [facility] DATE CREATED AUTHOR AUTHOR'S ORGANIZ ATION 03/15/2023 [facility] FOR RECORDS PERTAINING TO PATIENTS WHO ARE OR HAVE BEEN ENROLLED IN A CHEMICAL DEPENDENCY/SUBSTANCEABUSE PROGRAM, SOME INFORMATION MAY BE OMITTED. This clinical summary was aggregated from multiple sources. Caution should be exercised in using it in the provision of clinical care. This summary normalizes information from multiple sources, and as a consequence, information in this document may materially change the coding, format and clinical context of patient data. In addition, data may be omitted in some cases. CLINICAL DECISIONS SHOULD BE BASED ON THE PRIMARY CLINICAL RECORDS. appening [facility]. provides no warranty or guarantee of the accuracy or completeness of information in this document.
--- NOTE | 2024-03-05 08:38 | CT_ITS ---
The [address] [address] Patient Name: JOSÉ MIGUEL JOHNSON MRN: [id number] date: 1965 Sex: F Assigned Patient Location: CT Current Patient Location: Accession/Order Number: [id number] Exam Date: 03/05/2024 08:39 Report Date: 03/07/2024 10:14 At the request of: DAVID HERMOSILLO Procedure: CT sinus wo con EXAMINATION: CT sinus wo con HISTORY: R49.0 HOARSE COMPARISON: No relevant comparison available. TECHNIQUE: Axial and Coronal CT images were created without IV contrast. Dose reduction techniques were achieved by using automated exposure control and/or adjustment of mA and/or kV according to patient size and/or use of iterative reconstruction technique. FINDINGS: MAXILLARY SINUSES: Bilateral soft tissue opacification approximately 70% on the right and 90% on the left with occlusion of both ostiomeatal units ETHMOID SINUSES: Moderate bilateral opacification estimated to be 30-50% SPHENOID SINUSES: 40% right and 70% left opacification FRONTAL SINUSES: Near complete opacification NASAL FOSSA: 2 mm rightward deviation of the cranial nasal septum. No jc bullosa or paradoxical turbinates are identified. OTHER: Severe bilateral temporomandibular joint osteoarthritis with [id number] articulation and remodeling CT/CT sinus wo con IMPRESSION: Extensive paranasal sinus disease detailed above Severe bilateral temporomandibular joint osteoarthritis Electronically authenticated by: BRADLEY WOODARD Date: 03/07/2024 10:14
[2024-03-05 09:17] LABS: Basophils Absolute Auto 0.1 10^3/uL (0.0-0.1); Basophils Percent Auto 0.7 % (0.2-2.0); Eosinophils Absolute Auto 0.1 10^3/uL (0.0-0.7); Eosinophils Percent Auto 1.7 % (0.9-7.0); Hematocrit 45.1 % (36.0-48.0); Hemoglobin 14.6 g/dL (12.0-16.0); Immature Granulocytes Abs Auto 0.03 10^3/uL (0.00-0.03); Immature Granulocytes Pct Auto 0.4 % (0.0-0.5); Lymphocytes Absolute Auto 2.7 10^3/uL (1.2-3.8); Lymphocytes Percent Auto 32.8 % (20.5-60.0); Mean Corpuscular HGB Conc 32.4 g/dL (29.9-35.2); Mean Corpuscular Hemoglobin 30.5 pg (26.7-34.0); Mean Corpuscular Volume 94.4 fL (81.0-99.0); Mean Platelet Volume 10.1 fL (9.5-13.5); Monocytes Absolute Auto 0.5 10^3/uL (0.3-0.8); Monocytes Percent Auto 5.8 % (1.7-12.0); Neutrophils Absolute Auto 4.8 10^3/uL (1.4-6.5); Neutrophils Percent Auto 58.6 % (43.0-75.0); Platelet Count 354 10^3/uL (150-450); Red Blood Count 4.78 10^6/uL (4.20-5.40); White Blood Count 8.2 10^3/uL (4.0-11.0)
[2024-03-05 09:56] LABS: Alanine Aminotransferase 22 U/L (14-59); Albumin Globulin Ratio 1.1; Albumin Level 3.8 g/dL (3.4-5.0); Alkaline Phosphatase 92 U/L (46-116); Anion Gap 14.5; Aspartate Amino Transferase 18 U/L (15-37); BUN Creatinine Ratio 11.2; Calcium 9.2 mg/dL (8.5-10.1); Carbon Dioxide 29.3 mmol/L (21.0-32.0); Chloride 103 mmol/L (98-107); Chol HDL Ratio 3.2; Cholesterol 237 mg/dL (<=200); Estimated GFR (African America >60 (>=60); Estimated GFR (Non-African Ame 58 (>=60); Free T3 3.18 pg/mL (2.18-3.98); Globulin 3.6 g/dL; Glucose 110 mg/dL (74-106); HDL Cholesterol 73 mg/dL (40-60); Potassium 3.8 mmol/L (3.5-5.1); Sodium 143 mmol/L (136-145); Thyroid Stimulating Hormone 0.438 uIU/mL (0.358-3.740); Total Protein 7.4 g/dL (6.4-8.2); Triglycerides 64 mg/dL (<=150); VLDL CHOLESTEROL 12.8 mg/dL
[2024-03-05 10:13] LABS: Estimated Average Glucose 114 mg/dL; Glycohemoglobin A1C 5.6 % (4.5-6.2)
== END 2024-03-05 08:33 | disposition home or self-care (01) ==
PROVIDERS: PCP Family Medicine; Visit Provider Family Medicine
DX: Z00.00 Encounter for general adult medical examination without abnormal findings (principal); E78.5 Hyperlipidemia, unspecified; R73.9 Hyperglycemia, unspecified; D64.9 Anemia, unspecified; E55.9 Vitamin D deficiency, unspecified; M19.09 Primary osteoarthritis, other specified site; R49.0 Dysphonia; J32.9 Chronic sinusitis, unspecified
CPT/HCPCS: 36415; 70486; 80053; 80061; 82306; 83036; 83525; 83540; 84436; 84443; 84481; 85025

== ENCOUNTER 2024-03-11 06:54 | Outpatient (OUT) | payer OTHER, SELFPAY ==
--- OUTSIDE RECORDS SUMMARY | 2024-03-11 06:57 | XMS_ITS | CCD ---
Author Organization [facility] Care Team Providers Care [employer] Name Role Phone PHYSICIAN, DEFAULT Unavailable Unavailable PHYSICIAN, DEFAULT Unavailable Unavailable DAVID ALBRECHT Unavailable Unavailable PHYSICIAN, DEFAULT Unavailable Unavailable PHYSICIAN, DEFAULT Unavailable Unavailable DAVID ALBRECHT Unavailable Unavailable HOY ., DR HERNANDEZ Primary Care Unavailable BASIAER, DR AMADOU [employer] Unavailable HIGHLANDER, PETER D Admitting Unavailable HIGHLANDER, PETER D Attending Unavailable HIGHLANDER, PETER D Consulting Unavailable HOY ., DR HERNANDEZ Primary Care Unavailable DIPESH, DR AMADOU [employer] Unavailable HIGHLANDER, PETER [...] HOY ., DR HERNANDEZ Primary Care Unavailable DIPESH, DR AMADOU [employer] Unavailable RADHA, JAIRO Admitting Unavailable RADHA, JAIRO Attending Unavailable RADHA, JAIRO Consulting Unavailable HOY ., DR HERNANDEZ Primary Care Unavailable BASIAER, DR AMADOU [employer] Unavailable HIGHLANDER, PETER D Admitting Unavailable HIGHLANDER, PETER D Attending Unavailable HIGHLANDER, PETER D Consulting Unavailable GABINO LOPES Consulting Unavailable GEMMA .MAXIMILIANO Consulting Unavailable STEPHANYLUZ LY Consulting Unava ilMATTY Barlow Consulting Unavailable HOY ., DR HERNANDEZ Primary Care Unavailable HIGHLANDER, PETER D Admitting Unavailable HIGHLANDER, PETER D Consulting Unavailable HIGHLANDER, PETER D Attending Unavailable HOY ., DR HERNANDEZ Primary Care Unavailable HIGHLANDER, PETER D Admitting Unavailable HIGHLANDER, ADAMARIS Amaya Attending Unavailable HOY ., DR HERNANDEZ Consulting [...] Unavailable HIGHLANDER, PETER D Admitting Unavailable HIGHLANDER, ADAMARIS D Attending Unavailable HIGHLANDER, ADAMARIS Amaya Consulting Unavailable HOY ., DR HERNANDEZ Primary Care Unavailable ZIEBER, DR AMADUO [employer] Unavailable HIGHLANDER, ADAMARIS Amaya Admitting Unavailable HIGHLLEILA, ADAMARIS Amaya Attending Unavailable ADAMARIS STEWART Consulting Unavailable HOY ., DR HERNANDEZ Primary Care Unavailable BENEDICT, DR DE LOS SANTOS Consulting Unavailable BENEDICT, DR DE LOS SANTOS Attending Unavailable BENEDICT, DR DE LOS SANTOS Admitting Unavailable YEH, ANDREW Consulting Unavailable TIMMIS, ELOY H Attending Unavailable Problems Active Problems Problem Classification Problem [...] INSULINon 02-24-2023 Insulin 19.8 uIU/mL Normal 2.6-24.9 [facility] Comment on above: Performed By: #### I NSULIN #### [facility] [address] [place] [address] Dr. Hunter Weaver CBC AUTO DIFFon 02-23-2023 BASO # 0.0 103/ul Normal 0.0-0.1 [facility] Comment on above: Performed By: #### C BC #### [facility] [address] [address] [address] Hunter Weaver Basophils/100 WBC (Bld) 0.3 % Normal 0.2-2.0 [facility] Comment on above: Performed By: #### C BC #### [facility] [address] [address] [address] Hunter Weaver EO # 0.1 103/ul Normal 0.0-0.7 [facility] Comment on above: Performed By: #### C BC #### [facility] [address] [address] [address] Hunter Weaver Eosinophils/100 WBC (Bld) 1.5 % Normal 0.9-7.0 [facility] Comment on above: Performed By: #### C BC #### [facility] [address] [place] [address] Dr. Hunter Weaver Erythrocyte distribution width (RBC) [Ratio] 12.3 % Normal 11.0-15.0 [facility] Comment on above: Performed By: #### C BC #### [facility] [address] [place] [address] Dr. Hunter Weaver Hematocrit (Bld) [Volume fraction] 40.4 % Normal 36.0-48.0 [facility] Comment on above: Performed By: #### C BC #### [facility] [address] [place] [address] Dr. Hunter Weaver Hemoglobin (Bld) [Mass/Vol] 13.5 g/dL Normal 12.0-16.0 [facility] Comment on above: Performed By: #### C BC #### [facility] [address] [address] [address] Hunter Weaver IG # 0.06 10e3/ul Critically high 0.00-0.03 [facility] Comment on above: Performed By: #### C BC #### [facility] [address] [place] [address] Dr. Hunter Weaver IG % 0.7 % Critically high 0.0-0.5 [facility] Comment on above: Performed By: #### C BC #### [facility] [address] [place] [address] Dr. Hunter Weaver LYMPH # 3.2 103/ul Normal 1.2-3.8 [facility] Comment on above: Performed By: #### C BC #### [facility] [address] [place] [address] Dr. Hunter Weaver Lymphocytes/100 WBC (Bld) 34.5 % Normal 20.5-60.0 [facility] Comment on above: Performed By: #### C BC #### [facility] [address] [place] [address] Dr. Hunter Weaver MANUAL DIFF REQ NO Normal [facility] Comment on above: Performed By: #### C BC #### [facility] [address] [place] [address] Dr. Hunter Weaver MCH (RBC) [Entitic mass] 31.3 pg Normal 26.7-34.0 [facility] Comment on above: Performed By: #### C BC #### [facility] [address] [place] [address] Dr. Hunter Weaver MCHC (RBC) [Mass/Vol] 33.4 g/dL Normal 29.9-35.2 [facility] Comment on above: Performed By: #### C BC #### [facility] [address] [place] [address] Dr. Hunter Weaver MCV (RBC) [Entitic vol] 93.5 fL Normal 81.0-99.0 [facility] Comment on above: Performed By: #### C BC #### [facility] [address] [place] [address] Dr. Hunter Weaver MONO # 0.6 103/ul Normal 0.3-0.8 [facility] Comment on above: Performed By: #### C BC #### [facility] [address] [place] [address] Dr. Hunter Weaver Monocytes/100 WBC (Bld) 6.4 % Normal 1.7-12.0 [facility] Comment on above: Performed By: #### C BC #### [facility] [address] [address] [address] Hunter Weaver NEUT # 5.2 103/ul Normal 1.4-6.5 [facility] Comment on above: Performed By: #### C BC #### [facility] [address] [address] [address] Hunter Weaver Neutrophils/100 WBC (Bld) 56.6 % Normal 43.0-75.0 [facility] Comment on above: Performed By: #### C BC #### [facility] [address] [address] [address] Hunter Weaver Platelet mean volume (Bld) [Entitic vol] 9.8 fL Normal 9.5-13.5 [facility] Comment on above: Performed By: #### C BC #### [facility] [address] [place] [address] Dr. Hunter Weaver PLT 285 103/ul Normal 150-450 [facility] Comment on above: Performed By: #### C BC #### [facility] [address] [address] [address] Hunter Weaver RBC 4.32 106/ul Normal 4.20-5.40 [facility] Comment on above: Performed By: #### C BC #### [facility] [address] [place] [address] Dr. Hunter Weaver WBC 9.2 103/ul Normal 4.0-11.0 [facility] Comment on above: Performed By: #### C BC #### [facility] [address] [address] [address] Hunter Weaver FREE THYROXINE INDEX T7on FTI 3.98 Normal 1.30-4.50 [facility] Comment on above: Performed By: #### C MP, LIPID, T7, TSH ####[facility] [address] [address]Dr. Hunter Weaver T3U 39.0 % Normal 30.0-39.0 [facility] Comment on above: Performed By: #### C MP, LIPID, T7, TSH ####[facility] [address] [id number]. Hunter Weaver T4 [Mass/Vol] 10.20 ug/dL Normal 4.80-13.90 [facility] Comment on above: Performed By: #### C MP, LIPID, T7, TSH ####[facility] [address] [id number] Weaver GLYCOHEMOGLOBIN A1Con 2022 ADA RECOMMENDATION SEE BELOW Normal [facility] Comment on above: Result Comment: ADA RECOMMENDED LIMIT 4.0 - 6.0 ADA THERAPEUTIC TARGET < 7.0 ACTION SUGGESTED > 7.0 Performed By: #### A 1C ####[facility] [address] [address]Dr. Hunter Weaver Glucose [Mass/Vol] 111 mg/dL Normal [facility] Comment on above: Performed By: #### A 1C ####[facility] [address] [place], [place] [address]DrArt Weaver HbA1c (Bld) [Mass fraction] 5.5 % Normal 4.5-6.2 [facility] Comment on above: Performed By: #### A 1C ####[facility] [address] [place], [place] [address]Dr. Hunter Weaver IRONon 02-23-2023 Iron [Mass/Vol] 165.0 ug/dL Normal 50.0-170.0 [facility] Comment on above: Performed By: #### I MATTHEW #### [facility] [address] [address] [address] Hunter Weaver LIPID PROFILEon 02-23-2023 CHOL-HDL RATIO NORM SEE BELOW Normal [facility] Comment on above: Result Comment: 3.3 - 4.4 LOW RISK 4.4 - 7.1 AVERAGE RISK 7.1 - 11.0 MODERATE RISK >11.0 HIGH RISK Performed By: #### C MP, LIPID, T7, TSH ####[facility] [address] [address]DrArt Weaver Cholesterol [Mass/Vol] 192 mg/dL Normal <=200 [facility] Comment on above: Performed By: #### C MP, LIPID, T7, TSH ####[facility] [address] [id number]. Hunter Weaver Cholesterol in HDL [Mass/Vol] 58 mg/dL Normal 40-60 [facility] Comment on above: Performed By: #### C MP, LIPID, T7, TSH ####[facility] [address] [id number]. Hunter Weaver Cholesterol in LDL [Mass/Vol] 109.6 mg/dL Normal [facility] Comment on above: Performed By: #### C MP, LIPID, T7, TSH ####[facility] [address] [id number]. Hunter Weaver Cholesterol.total/ Cholesterol in HDL [Mass ratio] 3.3 {ratio} Normal [facility] Comment on above: Performed By: #### C MP, LIPID, T7, TSH ####[facility] [address] [address]Dr. Hunter Weaver HDL NORMAL > or = 60 mg/dl - LO W CARDIOVASCULAR RISK <40 mg/dl - HIGH CARDIOVASCULAR RISK Normal [facility] Comment on above: Performed By: #### C MP, LIPID, T7, TSH ####[facility] [address] [place], [place] [address]Dr. Hunter Weaver LDL CALC NORMAL SEE BELOW Normal [facility] Comment on above: Result Comment: <100 mg/dl OPTIMAL 100 - 129 mg/dl NEAR OR ABOVE OPTIMAL 130 - 159 mg/dl BORDERLINE HIGH 160 - 189 mg/dl HIGH >190 mg/dl VERY HIGH Performed By: #### C MP, LIPID, T7, TSH ####[facility] [address] [id number]. Hunter Weaver Triglyceride [Mass/Vol] 122 mg/dL Normal <=150 [facility] Comment on above: Performed By: #### C MP, LIPID, T7, TSH ####[facility] [address] [phone]. Hunter Weaver VLDL CALC 24.4 mg/dL Normal [facility] Comment on above: Performed By: #### C MP, LIPID, T7, TSH ####[facility] [address], [place] [address]Xf. Hunter Weaver MG MAMM SCREEN 3D KHADAR CADon 02-23-2023 MG MAMM SCREEN 3D KHADAR CAD Patient: GISSELL FISHER Exam Date: 02/23/2023 : 1965 Gender:F Ordering : DR DAVID ALBRECHT . Admission #: [id number] Family : Order #: [id number] CLICK HERE TO VIEW EXAM RADIOLOGY REPORT [...] colon cancer at age 64. LOCATION: [facility] BREAST COMPOSITION: Heterogeneously dense,which may obscure small [...] M.D. on 02/23/2023 at 11:02 Normal [facility] PROF 14(COMP METB)on 023 Albumin [Mass/Vol] 3.6 g/dL Normal 3.4-5.0 [facility] Comment on above: Performed By: #### C MP, LIPID, T7, TSH ####[facility] [address] [employer], [place] [address]Yv. Hunter Weaver Albumin/Globulin [Mass ratio] 1.1 {ratio} Normal [facility] Comment on above: Performed By: #### C MP, LIPID, T7, TSH ####[facility] [address] [address]Dr. Hunter Weaver ALP [Catalytic activity/Vol] 114 U/L Normal 46-116 [facility] Comment on above: Performed By: #### C MP, LIPID, T7, TSH ####[facility] [address] [address]Dr. Hunter Weaver ALT [Catalytic activity/Vol] 20 U/L Normal 14-59 [facility] Comment on above: Performed By: #### C MP, LIPID, T7, TSH ####[facility] [address] [place], [place] [address]Dr. Hunter Weaver Anion gap [Moles/Vol] 13.2 mmol/L Normal [facility] Comment on above: Performed By: #### C MP, LIPID, T7, TSH ####[facility] [address] [place], [place] [address]Dr. Hunter Weaver AST [Catalytic activity/Vol] 17 U/L Normal 15-37 [facility] Comment on above: Performed By: #### C MP, LIPID, T7, TSH ####[facility] [address] [address]Dr. Hunter Weaver Bilirubin [Mass/Vol] 0.5 mg/dL Normal 0.2-1.0 [facility] Comment on above: Performed By: #### C MP, LIPID, T7, TSH ####[facility] [address] [address]Dr. Hunter Weaver Calcium [Mass/Vol] 8.4 mg/dL Critically low 8.5-10.[address] [facility] Comment on above: Performed By: #### C MP, LIPID, T7, TSH ####[facility] [address] [address]Dr. Hunter Weaver Chloride [Moles/Vol] 105 mmol/L Normal 98-107 [facility] Comment on above: Performed By: #### C MP, LIPID, T7, TSH ####[facility] [address] [phone]. Hunter Weaver CO2 [Moles/Vol] 28.7 mmol/L Normal 21.0-32.0 [facility] Comment on above: Performed By: #### C MP, LIPID, T7, TSH ####[facility] [address] [phone]. Hunter Weaver Creatinine [Mass/Vol] 0.65 mg/dL Normal 0.55-1.02 [facility] Comment on above: Performed By: #### C MP, LIPID, T7, TSH ####[facility] [address] [address]Dr. Hunter Weaver EGFR-AF ALGERIAN >60 Normal >=60 [facility] Comment on above: Performed By: #### C MP, LIPID, T7, TSH ####[facility] [address] [address]Dr. Hunter Weaver EGFR-NON AF ALGERIAN >60 Normal >=60 [facility] Comment on above: Performed By: #### C MP, LIPID, T7, TSH ####[facility] [address] [address]Dr. Hunter Weaver Globulin (S) [Mass/Vol] 3.3 g/dL Normal [facility] Comment on above: Performed By: #### C MP, LIPID, T7, TSH ####[facility] [address] [address]Dr. Hunter Weaver Glucose [Mass/Vol] 122 mg/dL Critically high 74-106 T [facility] Comment on above: Performed By: #### C MP, LIPID, T7, TSH ####[facility] [address] [address]Dr. Hunter Weaver Potassium [Moles/Vol] 3.9 mmol/L Normal 3.5-5.1 [facility] Comment on above: Performed By: #### C MP, LIPID, T7, TSH ####[facility] [address] [address]Dr. Hunter Weaver Protein [Mass/Vol] 6.9 g/dL Normal 6.4-8.2 [facility] Comment on above: Performed By: #### C MP, LIPID, T7, TSH ####[facility] [address] [address]Dr. Hunter Weaver Sodium [Moles/Vol] 143 mmol/L Normal 136-145 [facility] Comment on above: Performed By: #### C MP, LIPID, T7, TSH ####[facility] [address] [address]Dr. Hunter Weaver Urea nitrogen [Mass/Vol] 12.0 mg/dL Normal 7.0-18.0 [facility] Comment on above: Performed By: #### C MP, LIPID, T7, TSH ####[facility] [address] [address]Dr. Hunter Weaver Urea nitrogen/Creatinin e [Mass ratio] 18.5 mg/mg Normal [facility] Comment on above: Performed By: #### C MP, LIPID, T7, TSH ####[facility] [address] [address]Dr. Hunter Weaver TSHon 02-23-2023 TSH Qn m[IU]/L Critically low 0.358-3.740 [facility] Comment on above: Performed By: #### C MP, LIPID, T7, TSH ####[facility] [address] [address]Dr. Hunter Weaver Covid-19 PCR ([facility])on SARS-CoV-2 (COVID-19) RNA CHRIS+probe Ql (Unsp spec) Not detected Normal NOT DETECTED [facility] Comment on above: Result Comment: When diagnostic [...] for this test is supported by the [place] of Health and Human Service's declaration that [...] be used). Performed By: #### C VDTB ####[facility] [address] [address]Dr. Hunter Weaver INFLUENZA A AND B AGon 11-28 [facility] SEE BELOW Normal [facility] Comment on above: Result Comment: Nega tive for Flu A protein angiten. Infection due to Flu A cannot be ruled out. Flu A angiten in the sample may be below the detection limit of the test. Performed By: #### I NFLUAB #### [facility] [address] [place] [address] Dr. Hunter Weaver [facility] SEE BELOW Normal [facility] Comment on above: Result Comment: Nega tive for Flu B protein antigen. Infection due to Flu B cannot be ruled out. Flu B antigen in the sample may be below the detection limit of the test. Performed By: #### I NFLUAB #### [facility] [address] [place] [address] Dr. Hunter Weaver INFLUENZA A AG Negative Normal NEGATIVE SEE COMMENT [facility] Comment on above: Performed By: #### I NFLUAB #### [facility] [address] [place] [address] Dr. Hunter Weaver INFLUENZA B AG Negative Normal NEGATIVE SEE COMMENT [facility] Comment on above: Performed By: #### I NFLUAB #### [facility] [address] [place] [address] Dr. Hunter Weaver MRA NECK WO CONon 11-20-2022 MRA NECK WO CON EXAMINATION: MRI BRA IN WO CON, MRA NECK WO CON, MRA HEAD WO CON HISTORY: Dizziness and giddiness COMPARISON: None. TECHNIQUE: Multiplanar, multisequence MRI images of the brain were obtained without contrast. MR angiogram of the head and neck were obtained with iphg-ef-dnieet technique, with maximum intensity projection images. FINDINGS: MRI BRAIN: No restricted diffusion. No foci of abnormal signal. Ventricles and sulci normal in size. No hydrocephalus. There is no midline shift, mass effect, or abnormal extraaxial fluid collections. Pituitary gland is not abnormally enlarged. There is no evidence for a Chiari I malformation. The orbital apices are clear. The flow voids of the h[place] of [place] are visualized, implying that the vessels are patent. MRA BRAIN: Flow in all major intracranial arteries without flow limiting stenosis or occlusion. No appreciable intracranial aneurysms or vascular malformations. MRA NECK: The aortic arch and origins of the great vessels are not included in the ziayy-gu-stum secondary to noncontrast technique. Carotid bifurcations are [...] by: ANDREW PARIKH Date: 2022-11-19 22:12 Normal [facility] US TAISHA DOP LEG LTon 10-30-20 22 US TAISHA DOP LEG LT EXAMINATION: US [...] by: AMADOU SCRUGGS Date: 2022-10-30 11:58 Normal [facility] POINT OF CARE GLUCOSEon 11- Glucose [Mass/Vol] 129 mg/dL Critically high 74-106 T [facility] Comment on above: Performed By: #### P OCGLUC #### [facility] [address] [place] [address] Dr. Hunter Weaver Glucose [Mass/Vol] 117 mg/dL Critically high 74-106 T [facility] Comment on above: Performed By: #### P OCGLUC #### [facility] [address] [place] [address] Dr. Hunter Weaver Covid-19 PCR ([facility])on 09-24 SARS-CoV-2 (COVID-19) RNA CHRIS+probe Ql (Unsp spec) Not detected Normal NOT DETECTED [facility] Comment on above: Result Comment: This test is not yet approved or cleared by the [place] FDA. When there are no FDA-approved or cleared tests available, and other criteria are met, FDA can make tests available under an emergency access mechanism called an Emergency Use Authorization (EUA). The EUA for this test is supported by the Etl Consultant of Health and Human Service's (HHS's) declaration [...] SARS-CoV-2. Performed By: #### C VDTBH #### [facility] [address] [place] [address] Dr. Hunter Weaver Ambulatory Clinical Summaryo n 10-08-2021 Ambulatory Clinical Summary {[id number]}CD:[id number] Normal [facility] General Surgery Office/Clini c Noteon 10-08-2021 General [...] SARS-CoV-2 (COVID-19) Ad26 vaccine 02/09/2021 Recorded Normal [facility] Comment on above: Result Comment: Elec tronically [...] to family history of colon cancer. Normal [facility] Pathology Noteon 10-07-2021 Pathology Note [id number]#[id number]:127 Normal [facility] Outside Colonoscopyon 2020 Outside Colonoscopy [id number]:127 Normal [facility] Lab Reportson 09-30-2021 Lab Reports [id number]#[id number]:127 Normal [facility] Formson 09-05-2021 Forms [id number]#[id number]:127 Normal [facility] Provider Letter FTMCon 09-04 Provider Letter [facility] September 04, 2021 David Albrecht, [address] [facility] [place] [address] [place] [address] Re: GISSELL FISHER Date of : 1965 Thank you for your referral of Gissell Fisher who was seen on consultation on 09/03/2021 for colonoscopy. I have enclosed my consultation note for your review. I will be happy to follow Gissell. Sincerely, Esau Rashid MD General Surgery [facility] Ambulatory Clinical Summaryo n 09-03-2021 Ambulatory Clinical Summary {[id number]}CD:[id number] [facility] Physician Referralon 021 Physician Referral [id number]#[id number]:127 [facility] Encounters Encounter Date Encounter Type Care Provider Facility Start: 03-08-2024 End: 03-08-2024 ambulatory ELOY SHIPLEY Not Available Start: 03-10-2023 End: 03-11-2023 ambulatory JAIRO GARCIA Facility:[facility] Start: 03-03-2023 End: 03-04-[address] DAVID ALBRECHT . Facility[facility] Start: 02-27-2023 Encounter for genera l adult medical examination without abnormal findings DR DAVID ALBRECHT . [facility] Start: 02-23-2023 End: 02-24-[address] DAVID [...] ALBRECHT . Facility:[facility] Start: 10-31-2022 Encounter for preprocedural laboratory examination ADAMARIS Amaya [facility] Start: 10-30-2022 End: 10-31-[address] DAVID ALBRECHT . Facility:[facility] Start: 10-20-2022 End: 10-20-[address] DAVID ALBRECHT . Facility:[facility] Start: 10-15-2022 End: 10-16-[address] DAVID ALBRECHT . Facility:[facility] Start: 10-15-2022 End: 10-16-2022 Encounter for preprocedural laboratory examination DR DAVID ALBRECHT . Facility:[facility] Start: 10-11-2022 Encounter for other preprocedural examination ADAMARIS Amaya [facility] Start: 10-08-2022 End: 10-09-[address] DAVID ALBRECHT . Facility:[facility] Start: 10-08-2022 End: 10-09-2022 Encounter for other preprocedural examination DR DAVID ALBRECHT . Facility:[facility] Start: 06-25-2022 End: 06-26-[address] DAVID ALBRECHT . Facility:[facility] Start: 03-26-2022 End: 03-27-[address] DAVID ALBRECHT . Facility: Start: 09-29-2017 End: 09-30-2017 Ambulatory DEFAULT PHYSICIAN Facility:[facility] Start: 09-28-2017 End: 09-29-2017 Ambulatory DEFAULT PHYSICIAN Facility:[facility] Payers Date Payer Category Payer Private Health Insurance [id number] 1965 Unknown [id number] 0.1.203594.3.579.2.59 1965 Unknown [id number] 2.16.84 0.1.681280.3.579.2.59 1965 Unknown [id number] 2.16.84 0.1.554185.3.579.2593 1964 Unknown [id number] 2.16.84 0.1.215204.3.579.2.593 1965 Unknown [id number] 2.16.84 0.1.052969.3.579.2.593 1965 Unknown [id number] 2.16.84 0.1.352109.3.579.2.593 1964 Unknown [id number] 2.16.84 0.1.911887.3.579.2.593 1964 Unknown [id number] 2.16.84 0.1.671557.3.579.2.593 1964 Unknown [id number] 2.16.84 0.1.430748.3.579.2.593 1964 Unknown [id number] 2.16.84 0.1.302822.3.579.2.593 1964 Unknown [id number] 2.16.84 0.1.404389.3.579.2.593 1964 Unknown [id number] 2.16.84 0.1.651070.3.579.2.593 1964 Unknown [id number] 2.16.84 0.1.554653.3.579.2.593 1965 Unknown [id number] 2.16.84 0.1.558303.3.579.2.593 1965 Unknown [id number] 2.16.84 0.1.551928.3.579.2.1259 1960 Private Health Insurance [id number] Unknown Clinical Note 03-10-2023 Note Date & [...] by: BUZZ ROCA Date: 2023-03-10 15:46 [facility] Clinical Note 12-23-2022 Note Date & Type [...] by: AMADOU SCRUGGS Date: 2022-12-23 10:52 [facility] Clinical Note 12-02-2022 Note Date & Type [...] by: AMADOU SCRUGGS Date: 2022-12-02 13:46 [facility] Clinical Note 11-14-2022 Note Date & Type [...] by: AMADOU SCRUGGS Date: 2022-11-13 22:19 [facility] Clinical Note 10-20-2022 Note Date & Type [...] by: AMADOU SCRUGGS Date: 2022-10-20 20:02 [facility] Clinical Note 10-20-2022 Note Date & Type [...] by: AMADOU SCRUGGS Date: 2022-10-20 16:31 [facility] Clinical Note 06-26-2022 Note Date & Type [...] by: AMADOU SCRUGGS Date: 2022-06-26 06:40 [facility] Clinical Note 06-26-2022 Note Date & Type [...] by: AMADOU SCRUGGS Date: 2022-06-26 06:40 [facility] Clinical Note 03-26-2022 Note Date & Type [...] authenticated by: AMADOU SCRUGGS Date: 2022-03-26 10:08 [facility] Clinical Note 09-04-2021 Note Date & Type [...] Recorded SARS-CoV-2 (COVID-19) Ad26 vaccine 02/09/2021 Recorded [facility] Comment on above: Result Comment: Elec tronically [...] section and content) DATE CREATED AUTHOR 05/18/2018 [facility] DATE CREATED AUTHOR AUTHOR'S ORGANIZ ATION 01/15/2022 [facility] DATE CREATED AUTHOR AUTHOR'S ORGANIZ ATION 03/15/2023 [facility] DATE CREATED AUTHOR AUTHOR'S ORGANIZ ATION 03/09/2024 [facility] EPIC FOR RECORDS PERTAINING TO PATIENTS WHO ARE [...] BE BASED ON THE PRIMARY CLINICAL RECORDS. [employer] [facility]. provides no warranty or guarantee of the accuracy or completeness of information in this document.
--- NOTE | 2024-03-11 06:59 | MM_ITS ---
Patient Name: JOSÉ MIGUEL JOHNSON MR#: [id number] : 1965 Exam Date: 03/11/2024 Ordering Doctor: DR Danish Albrecht . RADIOLOGY REPORT PROCEDURE: MM TOMOSYNTHESIS SCREENING BI COMPARISON: MG MAMM SCREEN 3D KHADAR CAD, 02/23/2023. MG MAMM SCREEN 3D KHADAR CAD, 09/02/2021. MG MAMM SCREEN KHADAR W CAD, 08/08/2020. MG MAMM KHADAR SCRN W CAD DIG, 06/24/2013. INDICATIONS: Screening Calculator Name NCI Breast Cancer Risk Assessment Tool 5 Year Breast Cancer Risk 2.10% Lifetime Breast Cancer Risk 11.20% Personal Breast Cancer No Personal Ovarian Cancer No Treatments None Family Cancers Grandmother-paternal with breast cancer at age ~75; Mother with colon cancer at age ~65. LOCATION: [facility] BREAST COMPOSITION: The breasts are heterogeneously dense,which may obscure small masses. FINDINGS: DIAGNOSTIC CATEGORY 2--BENIGN FINDING: RIGHT BREAST: No significant suspicious finding. Scattered benign-appearing calcifications are present. Scattered benign-appearing nodules are present. No significant change has occurred. LEFT BREAST: No significant suspicious finding. Scattered benign-appearing calcifications are present. Scattered benign-appearing nodules are present. No significant change has occurred. RECOMMENDATIONS: ROUTINE MAMMOGRAM AND CLINICAL EVALUATION IN 12 MONTHS. PLEASE NOTE: A NORMAL MAMMOGRAM DOES NOT EXCLUDE THE POSSIBILITY OF BREAST CANCER. A CLINICALLY SUSPICIOUS PALPABLE LUMP SHOULD BE BIOPSIED. Dictated by: Amadou Scruggs M.D. on 03/11/2024 at 14:31 Approved by: Amadou Scruggs M.D. on 03/11/2024 at 14:37
== END 2024-03-11 06:55 | disposition home or self-care (01) ==
LOC: MAMMO 06:54
PROVIDERS: PCP Family Medicine; Visit Provider Family Medicine
DX: Z12.31 Encounter for screening mammogram for malignant neoplasm of breast (principal); Z80.3 Family history of malignant neoplasm of breast; Z80.0 Family history of malignant neoplasm of digestive organs
CPT/HCPCS: 77063; 77067

== ENCOUNTER 2025-03-15 06:46 | Outpatient (OUT) | payer OTHER, SELFPAY ==
--- NOTE | 2025-03-15 07:03 | MM_ITS ---
Patient Name: JOSÉ MIGUEL JOHNSON MR#: [id number] : 1965 Exam Date: 03/15/2025 Ordering Doctor: DR Danish Albrecht . RADIOLOGY REPORT PROCEDURE: MM TOMOSYNTHESIS SCREENING BI COMPARISON: MM TOMOSYNTHESIS SCREENING BI, 03/11/2024. MG MAMM SCREEN 3D KHADAR CAD, 02/23/2023. MG MAMM SCREEN 3D KHADAR CAD, 09/02/2021. MG MAMM KHADAR SCRN W CAD DIG, 06/24/2013. INDICATIONS: Screening for malignant neoplasm of breast Calculator Name NCI Breast Cancer Risk Assessment Tool 5 Year Breast Cancer Risk 2.20% Lifetime Breast Cancer Risk 10.90% Personal Breast Cancer No Personal Ovarian Cancer No Treatments None Family Cancers Grandmother-paternal with breast cancer at age ~75; Mother with colon cancer at age ~65. LOCATION: [facility] BREAST COMPOSITION: The breasts are heterogeneously dense,which may obscure small masses. FINDINGS: RIGHT BREAST: No significant suspicious finding. LEFT BREAST: No significant suspicious finding. Stable post biopsy changes. DIAGNOSTIC CATEGORY 1--NEGATIVE. RECOMMENDATIONS: ROUTINE MAMMOGRAM AND CLINICAL EVALUATION IN 12 MONTHS. PLEASE NOTE: A NORMAL MAMMOGRAM DOES NOT EXCLUDE THE POSSIBILITY OF BREAST CANCER. A CLINICALLY SUSPICIOUS PALPABLE LUMP SHOULD BE BIOPSIED. Dictated by: Evelio Robb DO on 03/15/2025 at 08:19 Approved by: Evelio Robb DO on 03/15/2025 at 08:23
[2025-03-15 07:52] LABS: Alanine Aminotransferase 15 U/L (14-59); Albumin Globulin Ratio 1.1; Albumin Level 3.5 g/dL (3.4-5.0); Alkaline Phosphatase 76 U/L (46-116); Aspartate Amino Transferase 15 U/L (15-37); BUN Creatinine Ratio 19.4; Bilirubin Total 0.8 mg/dL (0.2-1.0); Calcium 8.8 mg/dL (8.5-10.1); Carbon Dioxide 30.5 mmol/L (21.0-32.0); Chloride 106 mmol/L (98-107); Chol HDL Ratio 2.5; Cholesterol 179 mg/dL (<=200); Estimated GFR (African America >60 (>=60 mL/min/1.73m^2); Estimated GFR (Non-African Ame >60 (>=60 mL/min/1.73m^2); Free T3 4.58 pg/mL (2.18-3.98); Globulin 3.1 g/dL; Glucose 111 mg/dL (74-106); HDL Cholesterol 72 mg/dL (40-60); Potassium 3.5 mmol/L (3.5-5.1); Sodium 143 mmol/L (136-145); Thyroid Stimulating Hormone 0.008 uIU/mL (0.358-3.740); Total Protein 6.6 g/dL (6.4-8.2); Triglycerides 54 mg/dL (<=150); VLDL CHOLESTEROL 10.8 mg/dL
[2025-03-15 08:08] LABS: Estimated Average Glucose 114 mg/dL; Glycohemoglobin A1C 5.6 % (4.5-6.2)
== END 2025-03-15 06:47 | disposition home or self-care (01) ==
LOC: MAMMO 06:47
PROVIDERS: PCP Family Medicine; Visit Provider Family Medicine
DX: Z00.00 Encounter for general adult medical examination without abnormal findings (principal); Z12.31 Encounter for screening mammogram for malignant neoplasm of breast; Z80.3 Family history of malignant neoplasm of breast; Z80.0 Family history of malignant neoplasm of digestive organs
CPT/HCPCS: 36415; 77063; 77067; 80053; 80061; 83036; 84436; 84443; 84481

== ENCOUNTER 2025-03-29 07:23 | Outpatient (OUT) | payer OTHER, SELFPAY ==
--- NOTE | 2025-03-29 07:00 | NM_ITS ---
The [address] [address] Patient Name: JOSÉ MIGUEL JOHNSON MRN: [id number] date: 1965 Sex: F Assigned Patient Location: [place] Current Patient Location: Accession/Order Number: [id number] Exam Date: 03/30/2025 09:25 Report Date: 03/30/2025 09:27 At the request of: DAVID HERMOSILLO MD Procedure: NM thyroid w uptake Radionuclide thyroid uptake and scan . CLINICAL DATA: THYROTOXICOSIS, UNSPECIFIED WITHOUT THYROTOXIC CRISIS/STORM. COMPARISON: None. TECHNIQUE: Following the oral administration of 279 microcuries of I-123 sodium iodide in capsule form, four hour anterior and oblique planar imaging of the neck was performed. Four-hour and 24-hour thyroid uptakes were measured. FINDINGS: No definite hot or cold nodules are noted. Four-hour and 24-hour thyroid uptakes measure 49% (normal 5-20%) and 60% (normal 15-35%), respectively. NM/NM thyroid w uptake Impression: Abnormal thyroid uptake. Findings are consistent with the history. No definite hot or cold nodules identified. Impression dictated by: Basil Ardon Jr., D.O. 03/30/2025 9:27 AM Dictation Location: [place] [address] Electronically authenticated by: [id number] Y Date: 03/30/2025 09:27
== END 2025-03-29 07:24 | disposition home or self-care (01) ==
LOC: NM 07:25
PROVIDERS: PCP Family Medicine; Visit Provider Family Medicine
DX: E05.90 Thyrotoxicosis, unspecified without thyrotoxic crisis or storm (principal)
CPT/HCPCS: 78014; A9516

== ENCOUNTER 2025-05-04 16:10 | Outpatient (OUT) | payer OTHER, SELFPAY ==
[2025-05-04 16:52] LABS: Free T3 7.03 pg/mL (2.18-3.98); Thyroid Stimulating Hormone <0.007 uIU/mL (0.358-3.740)
== END 2025-05-04 16:11 | disposition home or self-care (01) ==
LOC: LAB 16:11
PROVIDERS: PCP Family Medicine; Visit Provider Family Medicine
DX: E03.9 Hypothyroidism, unspecified (principal)
CPT/HCPCS: 36415; 84436; 84443; 84481

== ENCOUNTER 2025-07-11 16:44 | Outpatient (OUT) | payer OTHER, SELFPAY ==
--- OUTSIDE RECORDS SUMMARY | 2025-03-30 10:35 | XMS_ITS ---
Author Organization [facility] in [place] Address [address] [place] [address] Care Team Providers Care Software Applications Engineer Name Role Phone David Albrecht Primary Care Provider [phone] REASON FOR VISIT nm thyroid Problems Problem Type SNOMED Code ICD Code Onset Dates Problem Status W/U Status Risk Notes Problem Hypothyroid (86788983) Hypothyroid (E03.9) Active confirmed Encounters Encounter Location Date Provider Diagnosis [facility] [address] [place] [address] 03/30/2025 David Albrecht Hypothyroid E03. 9 Assessments Encounter Date Diagnosis (ICD Code) Assessment Notes Treatment Notes Treatment Clinical Notes Section Notes 03/30/2025 Hypothyroid (ICD-10 - E03.9) Plan Of Treatment Pending Test Test Name Order Date THYROID PANEL (T4/TSH/FREE T3) Progress Notes * Gissell JOHNSONDOB:1965 (59 yo F)Acc No.[id number]:03/30/2025 Patient: Gissell ULLOA :1965 A ge:59 Y S ex:Female Address:[address] [place] [id number] Subjective: * Chief Complaints: * N m thyroid * Medical History: * Surgical History: * Hospitalization/Major Diagno stic Procedure: * Medications: Objective: * Vitals: * Physical Examination: Assessment: * Assessment: 1. H ypothyroid - E03.9 (Primary) Plan: * Treatment: * Procedure Codes: * true * Date: Generated for Rosalie fontana/Gonzalo/Lynsey on: 0 07/11/2025 04:48 PM EDT
--- OUTSIDE RECORDS SUMMARY | 2025-07-07 05:00 | XMS_ITS ---
Author Organization [facility] in [place] Address [address] [place] [address] Care Team Providers Care Body Maker Machine Setter Name Role Phone David Albrecht Primary Care Provider [phone] Allergies No Known Allergies REASON FOR VISIT Presents to office alone for c/o rt shoulder pain for several months. Had surgery on that shoulder about 12 years and ago and feels like it did back then Medications Medication SIG (Take, Route, Fr equency, Duration) Notes Start Date End Date Status Meloxicam 15 MG 1 tablet Orally Once a day for 30 days 07/07/2025 Active methIMAzole 5 MG 1 tablet Orally Once a day for 30 days 03/15/2025 Active Social History Tobacco Use: Social History Observation Description Date Details (start date - stop date) Never Smoker NA - NA Tobacco Use/Smoking Question Answer Notes Patient is a nonsmoker AUDIT-C (Standard) Question Answer Notes Did you have a drink contain ing alcohol in the past year? Yes How often did you have six o r more drinks on one occasion in the past year? Less than monthly (1 point) How many drinks did you have on a typical day when you were drinking in the past year? 1 or 2 drinks (0 point) How often did you have a dri nk containing alcohol in the past year? Monthly or less (1 point) Points 2 Interpretation Negative Section Notes: never smoker Problems Problem Type SNOMED Code ICD Code Onset Dates Problem Status W/U Status Risk Notes Problem Impingement syndrome of shoulder region (294929385) Shoulder impingement (M75.40) Active confirmed Vital Signs Weight 179.4 lbs 07/07/2025 Height 64.5 in 07/07/2025 Blood pressure systolic 136 mm Hg 07/07/20 25 Blood pressure diastolic 60 mm Hg 025 BMI 30.32 kg/m2 07/07/2025 Encounters Encounter Location Date Provider Diagnosis [facility] [address] [place] [address] 07/07/2025 David Albrceht Shoulder impingement M75.40 and Thyrotoxicosis, unspecified without thyrotoxic crisis or storm E05.90 Assessments Encounter Date Diagnosis (ICD Code) Assessment Notes Treatment Notes Treatment Clinical Notes Section Notes 07/07/2025 Shoulder impingement (ICD-10 - M75.40) 07/07/2025 Thyrotoxicosis, unspecified without thyrotoxic crisis or storm (ICD-10 - E05.90) Plan Of Treatment Medication Medication Name Sig Start Date Stop Date Notes Meloxicam 15 MG 1 tablet Orally Once a day for 30 days Pending Test Test Name Order Date XR SHOULDER RT 2V or > 07/07/2025 THYROID PANEL (T4/TSH/FREE T3) Progress Notes * Gissell JOHNSONDOB:1965 (59 yo F)Acc No.[id number]:07/07/2025 UNLOCKED PROGRESS NOTE Progress Note Patient: Gissell ULLOA Provider: Monique Albrecht ([facility])MD :1965 A ge:59 Y S ex:Female Date:07/07/2025 Address:[address] [place], [place] [id number] Check In:08:53 AM ESTCheck O ut:09:27 AM EST Subjective: * Chief Complaints: * 1 . Presents to office alone for c/o rt shoulder pain for several months. Had surgery on that shoulder about 12 years and ago and feels like it did back then. * HPI: G eneral: R shoulder - had surgery abtro 12 years - had more of aclear u- procedure - ntohg in torn - shoulder pain last 3 months prog worse - no injury recnently tried - heat ic e- hot tub - some motrin aleve and tylenot - not heling much either Some stretching - home therapy. * ROS: E ENT: hearing changes d enies. v isual changes d enies.?non-healing mouth sores d enies. s wollen glands or neck lumps d enies. h oarseness d enies. s ore throat d enies. d ifficulty swallowing d enies. n ose bleeds d enies. n ana congestion d enies. e ar ache d enies. e ar discharge?denies. r inging in ears d enies. l ight sensitivity d enies. e ye pain d enies. b lurring d enies. e ye irritation d enies. d ouble vision d enies.?vision loss d enies. G eneral/Constitutional: Sweats: D enies. F atigue d enies. S leep problems d enies. A norexia d enies. M alaise d enies. W eight loss d enies.?Fatigue or Weakness d enies. F ever or Chills d enies. C ardiovascular: Shortness of Breath w/lying flat d enies. L ightheadedness/dizziness d enies. C hest tightness/ heavy pressure d enies. S welling of legs, ankles, or feet d enies. W aking up with shortness of breath d enies. C hest pain denies. P alpitations d enies. W eight gain d enies. R espiratory: Chronic or frequent cough d enies. C oughing up blood?denies. D ifficulty breathing d enies. P roductive cough d enies. S noring?denies. S hortness of breath that awakens from sleep (PND) d enies. C hest pain d enies. S putum production d enies. W heezing d enies. M usculoskeletal: Joint pain d enies. J oint Fluid d enies. B ack pain d enies. K nee pain d enies. N brina pain d enies. J oint Stiffness d enies. M uscle cramps d enies. W eakness of muscles d enies. A rthritis d enies. M uscle aches d enies. P ain in shoulder(s) d enies. S wollen joints d enies. * Medical History: H allux rigidus, left foot, Contusion of left foot, subsequent encounter, Contusion of toe of left foot, unspecified toe, subsequent encounter, Predislocation syndrome of metatarsophalangeal joint, left, Predislocation syndrome of metatarsophalangeal joint, right, Contracture of toe of left foot, Hallux rigidus of right foot, Contracture of toe of right foot, Snoring, Acute bronchitis, Over weight, Trigger finger, unspecified finger, Osteoarthritis of first metatarsophalangeal (MTP) joint of right foot, Osteoarthritis of first metatarsophalangeal (MTP) joint of left foot, Other enthesopathy of right foot and ankle, Other peripheral vertigo, unspecified ear, Intervertebral disc disorder with radiculopathy of lumbosacral region, Lipoma of skin, Other specified congenital musculoskeletal deformities, Sciatica, H/O: hematuria, Other diseases of vocal cords, Foot pain, Well adult, Gastro- esophageal reflux disease, Thyrotoxicosis, unspecified without thyrotoxic crisis or storm, Chest pain, Short Achilles tendon (acquired), left ankle, Chronic midline low back pain without sciatica, Mass of joint of left ankle, Osteopenia, Fibromyalgia, AC (acromioclavicular) arthritis, Irritable bowel syndrome, Hernia, hiatal, Cervical spondylosis, Cervical disc disorder with radiculopathy, Cervicocranial syndrome, Cervical radiculopathy, Carpal tunnel syndrome, Connective tissue disorder, Paresthesias/numbness, Fibrocystic breast disease, Allergic rhinitis, Multiple lipomas, Arthralgia, Hypercholesteremia, Chronic pansinusitis. * Surgical History: 1 st MPJ, 2nd metatarsal osteotomy, 2nd hammertoe correction with PIPJ arthroplasty left foot Dr. Cerna 09/2022, fatty tumor removed under left arm 2012, right shoulder surgery 2011, neck C6 and C7 bracket, cadaver bone , right carpal tunnel 2011, left achilles tendon lengthening Dr. Cerna 10/2016, cholecystectomy , colonoscopy 2020, biopsy left breast 2017. * Hospitalization/Major Diagno stic Procedure: S urgeries , Cardiac- but ruled out . * Family History: F ather: , diagnosed with Unspecified heart disease. M other: , colon, diagnosed with Other malignant neoplasm of unspecified site. S ister(s): alive, chronic lung disease. P aternal Grandfather: diagnosed with Other malignant neoplasm of unspecified site, Unspecified heart disease. M aternal Grandfather: diagnosed with Other malignant neoplasm of unspecified site, Unspecified heart disease. 3 sister(s) . . * Social History: T obacco Use: T obacco Use/Smoking P atient is a n onsmoker D rug/Alcohol: A VENICE-C (Standard) D id you have a drink containing alcohol in the past year? Y es H ow often did you have six or more drinks on one occasion in the past year? L ess than monthly (1 point) H ow many drinks did you have on a typical day when you were drinking in the past year? 1 or 2 drinks (0 point) H ow often did you have a drink containing alcohol in the past year? M onthly or less (1 point) P oints 2 I nterpretation N egative n ever smoker. * Medications: T aking methIMAzole 5 MG Tablet 1 tablet Orally Once a day , Discontinued Adipex-P(Phentermine HCl) 37.5 MG Tablet 1 tablet before breakfast Orally Once a day , Medication List reviewed and reconciled with the patient * Allergies: N .K.D.A. Objective: * Vitals: W t:179.4lbs, Ht: 64.5 in, BP:136/60mm Hg, BMI:30.32Index, Ht-cm: 163.83 cm, Wt- k.38 kg. * Examination: P hysical Exam: GENERAL: w ell developed, well nourished, in no acute distress. HEAD: n ormocephalic/atraumatic. EYES: p upils equal, round and reactive to light, conjunctivae and sclerae normal. EARS: n o deformity or lesion of external ear, canals and TM appear normal bilaterally, TM's intact, not inflamed with normal light reflex, hearing grossly normal to conversational speech. NOSE: n o deformity, discharge, inflammation, or lesions.? MOUTH: m ucous membranes moist, normal oropharynx and posterior pharynx without lesions or exudates, tongue normal, dentition normal. NECK: n brina supple, no masses or palpable cervical nodes, trachea midline, thyroid without nodules, masses, tenderness, or enlargement. CHEST: n o chest wall deformity, no chest wall tenderness.? LUNGS: n ormal respiratory effort and clear to auscultation, no wheezes, rales, or rhonchi, good air exchange. CARDIO: r egular rate and rhythm, normal S1 and S2, nor murmur, rub, or gallop. PULSES: n ormal capillary refill. ABDOMEN: s oft, non-distended, non-tender, no masses. MUSCULOSKELETAL: n o deformity or scoliosis noted, normal range of motion, joints normal, no erythema, edema, effusion, or ecchymosis. EXTREMITY: n o clubbing, cyanosis, edema, or deformity with normal ROM in both upper and lower bilateral extremities. NEUROLOGIC: g rossly normal. SKIN: n o rashes, ulcerations, or suspicious lesions. LYMPH NODES: n o cervical adenopathy, nodes normal. MENTAL STATUS: a lert and oriented x3, normal mood and affect. Assessment: * Assessment: 1. S houlder impingement - M75.40 (Primary) 2 . T hyrotoxicosis, unspecified without thyrotoxic crisis or storm - E05.90 Plan: * Treatment: 2. T hyrotoxicosis, unspecified without thyrotoxic crisis or storm L AB: THYROID PANEL (T4/TSH/FREE T3) * Preventive Medicine: Screenings/Counseling: B AK ACTION PLAN Above Normal BMI Follow-up D ietary management education, guidance, and counseling See treatment section of progress note for complete details of management plan. * * Electronic signature of David Albrecht MD, [id number] on 07/11/2025 at 04:48 PM EDT Sign off status: Pending Visit Status: C HK (Check Out) * Provider: Monique Albrecht ([facility])MD Date: 0 07/07/2025 Generated for Printi ng/Fayolig/eTransmitting on: 0 07/11/2025 04:48 PM EDT History and Physical Notes * HPI (History of Present Illness) Category Sub-Category Detail Notes Category Not es General R shoulder - had surgery abtro 12 years - had more of aclear u- procedure -ntohg in torn - shoulder pain last 3 months prog worse - no injury recnently tried - heat ic e- hot tub - some motrin aleve and tylenot - not heling much either Some stretching - home therapy Examination Category Sub-Category Detail Notes Category Not es Physical Exam GENERAL: well developed, well nourished, in no acute distress HEAD: normocephalic/atraum atic EYES: pupils equal, round and reactive to light, conjunctivae and sclerae normal EARS: no deformity or lesi on of external ear, canals and TM appear normal bilaterally, TM's intact, not inflamed with normal light reflex, hearing grossly normal to conversational speech NOSE: no deformity, discha rge, inflammation, or lesions MOUTH: mucous membranes stone st, normal oropharynx and posterior pharynx without lesions or exudates, tongue normal, dentition normal NECK: neck supple, no mass es or palpable cervical nodes, trachea midline, thyroid without nodules, masses, tenderness, or enlargement CHEST: no chest wall deform ity, no chest wall tenderness LUNGS: normal respiratory e ffort and clear to auscultation, no wheezes, rales, or rhonchi, good air exchange CARDIO: regular rate and rhy thm, normal S1 and S2, nor murmur, rub, or gallop PULSES: normal capillary ref ill ABDOMEN: soft, non-distended, non-tender, no masses RECTAL: MUSCULOSKELETAL: no deformity or scol iosis noted, normal range of motion, joints normal, no erythema, edema, effusion, or ecchymosis EXTREMITY: no clubbing, cyanosi s, edema, or deformity with normal ROM in both upper and lower bilateral extremities NEUROLOGIC: grossly normal SKIN: no rashes, ulceratio ns, or suspicious lesions LYMPH NODES: no cervical adenopat hy, nodes normal MENTAL STATUS: alert and oriented x 3, normal mood and affect
--- OUTSIDE RECORDS SUMMARY | 2025-07-11 16:48 | XMS_ITS | Clinical Summary ---
Author Organization [facility] Address [address] [place] [address] Care Team Providers Care Carbonation Equipment Tender Name Role Phone Danish Albrecht MD Primary Care Provider [phone] Allergies No known active allergies Medications cetirizine (ZyrTEC) 10 MG tablet Take 10 mg by mouth Daily Active pantoprazole (ProtoNix) 40 MG EC tablet Take 40 mg by mouth in the morning. Take before meals. Do not crush, chew, or split.. Active phentermine 37.5 MG capsule Take 37.5 mg by mouth in the morning. Take before meals. Active fluticasone (Flonase) 50 MCG/ACT nasal sprayIndications: Chronic pansinusitis Administer 2 sprays into each nostril Daily Shake gently. Before first use, prime pump. After use, clean tip and replace cap. 16 g 11 4 Active famotidine (Pepcid) 20 MG tabletIndications :LPRD (laryngopharyngea l reflux disease) take 1 tablet by mouth at bedtime 90 tablet 4 Active Active Problems Problem Noted Date Diagnosed Date Arthritis 04/07/2024 Family history of malignant neoplasm of colon Undifferentiated connective tissue disease 04/07 LPRD (laryngopharyngeal reflux disease) 03/08/20 24 Chronic pansinusitis 03/08/2024 Thyrotoxicosis 03/01/2024 Peripheral vertigo 03/01/2024 Other diseases of vocal cords 03/01/2024 Arthritis of first metatarso phalangeal (MTP) joint of left foot 03/01/2024 Osteophyte of left foot 03/01/2024 Cervicocranial syndrome 03/01/2024 Trigger finger 03/01/2024 Shortness, tendon, Achilles acquired, left 03/01 Other enthesopathy of right foot and ankle 03/01 Fibromyalgia 03/01/2024 Snoring 03/01/2024 Chest pain, unspecified 03/01/2024 Gastroesophageal reflux disease 03/01/2024 Cervical radiculopathy 03/01/2024 Carpal tunnel syndrome 03/01/2024 Osteopenia 03/01/2024 Foot pain 03/01/2024 Arthralgia 03/01/2024 Allergic rhinitis 03/01/2024 Acute bronchitis 03/01/2024 Irritable bowel syndrome 03/01/2024 Sciatica 03/01/2024 Arthritis pain 03/01/2024 Spondylosis, cervical 03/01/2024 Connective tissue disease 03/01/2024 Multiple lipomas 03/01/2024 Intervertebral disc disorder with radiculopathy of lumbosacral region 03/01/2024 Fibrocystic disease of breast 03/01/2024 Cervical disc disorder with radiculopathy 2023 Hiatal hernia 03/01/2024 H/O: hematuria 03/01/2024 Chronic cough 03/01/2024 Family History Medical History Relation Name Comments Heart disease Father Cancer Maternal Grandfather Heart disease Maternal Grandfather Colon cancer Mother Cancer Paternal Grandfather Heart disease Paternal Grandfather Chronic Lung Disease Sister Relation Name Status Comments Father Maternal Grandfather Mother Paternal Grandfather Sister Alive x3 Social History Tobacco Use Types Packs/Day Years Used Date Smoking Tobacco: Never Smokeless Tobacco: Never Tobacco Cessation:Counseling Given: Not Answered Alcohol Use Standard Drinks/Week Comments Yes 0 (1 standard drink = 0.6 oz pur e alcohol) Socially Comments Unknown Sex and Gender Information Value Date Recorded Sex Assigned at Female 02/18/2024 1:14 PM EDT Legal Sex Female 6:41 PM EDT Gender Identity Female 02/18/2024 1:14 PM EDT Sexual Orientation Not on file Last Filed Vital Signs Vital Sign Reading Time Taken Comments Blood Pressure 154/83 04/12/2024 3:35 PM EDT Pulse - - Temperature - - Respiratory Rate - - Oxygen Saturation - - Inhaled Oxygen Concentration - - Weight 87.5 kg (193 lb) 04/12/2024 3:35 PM EDT Height 163.8 cm (5' 4.5 ) 04/12/2024 3:35 PM EDT Body Mass Index 32.62 04/12/2024 3:35 PM EDT Plan of Treatment Health Maintenance Due Date Last Done Comments CT Colonography 1964 FIT-DNA 1964 FIT 1964 FOBT 1964 Sigmoidoscopy 1964 Pap Smear 1985 Cervical Cancer Screening 1994 HPV/Cotest 1994 Mammogram 2004 Influenza Vaccine (#1) 2025 , 08/22/2021, 10/04/2020, Additional history exists Colonoscopy 10/02/2031 10/02/2021, 03/14/2013 Colorectal Cancer Screening 10/02/2031 Insurance [employer] Care Teams Carbonation Equipment Tender Relationship Specialty Start Date End Date Danish Albrecht MD PCP - General Family Medicine 02/18/24
--- OUTSIDE RECORDS SUMMARY | 2025-07-11 16:48 | XMS_ITS | Clinical Summary ---
[facility] Address [id number] [address] [place] [address] Care Team Providers Care Production Grader Name Role Phone Unavailable Primary Care Provider Unavailabl e Social History Tobacco Use Types Packs/Day Years Used Date Smoking Tobacco: Never Assessed Childcare Answer Date Recorded Childcare Unknown 05/04/2019 Employment Answer Date Recorded Employment Unknown 05/04/2019 Comments Unknown Sex and Gender Information Value Date Recorded Sex Assigned at Not on file Legal Sex Female 11:50 AM EDT Gender Identity Not on file Sexual Orientation Not on file Plan of Treatment Not on file Medical Devices Not on file
--- OUTSIDE RECORDS SUMMARY | 2025-07-11 16:48 | XMS_ITS | Encounter Summary ---
Author Organization [facility] Address [address] [place] [address] Care Team Providers Care Material Control Clerk Name Role Phone Danish Albrecht MD Primary Care Provider [phone] Encounter Details Date Type Department Care Team (Late st Contact Info) Description 04/05/2024 Clinisync Result Encounter [facility] Unsolicited Amrita Wilkins MD [address] [place] [address] Social History Tobacco Use Types Packs/Day Years Used Date Smoking Tobacco: Never Smokeless Tobacco: Never Alcohol Use Standard Drinks/Week Comments Yes 0 (1 standard drink = 0.6 oz pur e alcohol) Socially Comments Unknown Sex and Gender Information Value Date Recorded Sex Assigned at Female 02/18/2024 1:14 PM EDT Legal Sex Female 6:41 PM EDT Gender Identity Female 02/18/2024 1:14 PM EDT Sexual Orientation Not on file documented as of this encounter Plan of Treatment Not on file documented as of this encounter Procedures Procedure Name Priority Date/Time Associated Diagnosis Comments CT MAXILLOFACIAL W/O CONTRAST 04/05/2024 4:44 PM EDT documented in this encounter Results * CT MAXILLOFACIAL W/O CONTRAST (04/05/2024 4:44 PM EDT) Anatomical Region Laterality Modality Other 04/05/2024 4:44 PM EDT Narrative 04/08/2024 1:32 PM EDT Exam Date/Time: 04/05/2024 16:58 EDT Reason for Exam: J32.4 Report IMPRESSION: Diffuse paranasal sinus disease as discussed. EXAMINATION: CT Maxillofacial w/o Contrast HISTORY: Cough. Hoarseness. TECHNIQUE: Spiral high resolution axial unenhanced CT images were obtained through the paranasal sinuses with sagittal, coronal reconstructions. All CT scans at this facility use dose modulation, iterative reconstruction, and/or weight based dosing when appropriate to reduce radiation dose to as low as reasonably achievable. COMPARISON: None. RESULT: Post-Surgical Findings: None Sinus Chambers: Essentially complete opacification of the right frontal sinus. Extensive thickening involving the inferior aspects of both maxillary sinuses measuring up to 12 mm on the right and around 9 mm on the left. Mild thickening of the ethmoid air cells. Moderate thickening left sphenoid sinus measuring up to 7 mm in thickness. Trace thickening right sphenoid sinus. Left frontal sinus is essentially clear. Nasal Cavities: Nasal cavity grossly patent. S-shaped nasal septum. Developmental Anomalies: Cassie cells. Ostiomeatal Complex: At least partially occluded on the right. Grossly patent on the left. Other: Mastoid air cells grossly clear. Middle ear cavities grossly clear. Soft tissues of the face grossly unremarkable. Visualized brain without evidence for acute finding within limitations of the study. Report Ordering Provider: Amrita Wilkins FINAL REPORT Dictated: 04/08/2024 1:29 pm Porfirio Williamson MD Signed (Electronic Signature): 04/08/2024 1:29 pm Signed by: Porfirio Williamson MD Transcribed by: ROSETTA Technologist: FABIENNE Procedure Note Radiology, Radiologist, - 04/08/2024 Exam Date/Time: 04/05/2024 16:58 EDT Reason for Exam: J32.4 Report IMPRESSION: Diffuse paranasal sinus disease as discussed. EXAMINATION: CT Maxillofacial w/o Contrast HISTORY: Cough. Hoarseness. TECHNIQUE: Spiral high resolution axial unenhanced CT images were obtainedthrough the paranasal sinuses with sagittal, coronal reconstructions. All CT scans at this facility use dose modulation, iterativereconstruction, and/or weight based dosing when appropriate to reduce radiation dose to as low asreasonably achievable. COMPARISON: None. RESULT: Post-Surgical Findings: None Sinus Chambers: Essentially complete opacification of the right frontalsinus. Extensive thickening involving the inferior aspects of both maxillarysinuses measuring up to 12 mm on the right and around 9 mm on the left. Mildthickening of the ethmoid air cells. Moderate thickening left sphenoid sinus measuringup to 7 mm in thickness. Trace thickening right sphenoid sinus. Left frontal sinusis essentially clear. Nasal Cavities: Nasal cavity grossly patent. S-shaped nasal septum. Developmental Anomalies: Cassie cells. Ostiomeatal Complex: At least partially occluded on the right. Grosslypatent on the left. Other: Mastoid air cells grossly clear. Middle ear cavities grosslyclear. Soft tissues of the face grossly unremarkable. Visualized brain withoutevidence for acute finding within limitations of the study. Report Ordering Provider: Amrita Wilkins FINAL REPORT Dictated: 04/08/2024 1:29 pm Porfirio Williamson MD. Signed (Electronic Signature): 04/08/2024 1:29 pm Signed by: Porfirio Williamson MD Transcribed by: ROSETTA Technologist: FABIENNE us Amrita Wilkins MD [facility] Final Resul t documented in this encounter Visit Diagnoses Not on filedocumented in this encounter Care Teams Material Control Clerk Relationship Specialty Start Date End Date Danish Albrecht MD PCP - General Family Medicine 02/18/24 documented as of this encounter
--- OUTSIDE RECORDS SUMMARY | 2025-07-11 16:48 | XMS_ITS | Clinical Summary ---
Author Organization [facility] Address [address] [place], [place] [address] Care Team Providers Care Procedures Nurse Name Role Phone Danish Albrecht MD Primary Care Provider [phone] Medications Milnacipran (SAVELLA) 100 mg tab Take by mouth twice daily. Active gabapentin 600 mg Tb24 Take by mouth. Pt states she three 600mg once daily. Active simvastatin (ZOCOR) 20 mg tablet Take 20 mg by mouth daily at bedtime. Active Alendronate-Dona min D3 70-2,800 mg-unit tab Take by mouth once each week. Active Social History Tobacco Use Types Packs/Day Years Used Date Smoking Tobacco: Never Alcohol Use Standard Drinks/Week Comments Not Asked 0 (1 standard drink = 0.6 oz pur e alcohol) Comments Unknown Sex and Gender Information Value Date Recorded Sex Assigned at Not on file Legal Sex Female 7:46 AM EST Gender Identity Not on file Sexual Orientation Not on file Last Filed Vital Signs Vital Sign Reading Time Taken Comments Blood Pressure 149/67 12/06/2015 2:10 PM EST Pulse 77 12/06/2015 2:10 PM EST Temperature 37.6 C (99.6 F) 12/06/2015 2:10 PM EST Respiratory Rate - - Oxygen Saturation - - Inhaled Oxygen Concentration - - Weight 90.7 kg (199 lb 14.4 oz) 12/06/2015 2:10 PM EST Height 165.5 cm (5' 5.16 ) 12/06/2015 2:10 PM ES T Body Mass Index 33.1 12/06/2015 2:10 PM EST Plan of Treatment Health Maintenance Due Date Last Done Comments Anxiety Screening 1982 Depression Screening 1982 HIV Screening 1982 Hepatitis C Screening 1982 DTaP,Tdap,Td Vaccine (1 - Tdap) 1983 Cervical Cancer Screening [address] Colonography 2009 Cologuard (FIT-DNA) 2009 Colonoscopy 2009 Colorectal Cancer Screening 2009 Diabetes Screening 2009 Fecal Occult Blood 2009 Lipid Screening 2009 Sigmoidoscopy 2009 Pneumococcal Vaccine: 50+ (1 of 1 - PCV) 2014 Shingrix Vaccine (1 of 2) 2014 Influenza Vaccine (#1) 2025 RSV Vaccine (1 - 1-dose 75+ series) 2039 Insurance [employer] PPO TPA Care Teams Procedures Nurse Relationship Specialty Start Date End Date Danish Albrecht MD PCP - General Family Medicine 10/09/15
--- OUTSIDE RECORDS SUMMARY | 2025-07-11 16:48 | XMS_ITS | Patient Health Record ---
Author Organization [facility] in [place] Address [address] [place] [address] Care Team Providers Care Glue Cook Name Role Phone David Hermosillo Primary Care Provider Allergies No Known Allergies Results Component Value Reference Range Notes FREE T3 Reviewed date:03/15/2025 10:20:02 AM Interpretation: Performing Lab: Notes/Report: [facility] , Free T3 4.58 2.18-3.98 pg/mL Performing Lab: see note ML - [facility] LB LIPID PROFILE Reviewed date:03/15/2025 10:20:02 AM Interpretation: Performing Lab: Notes/Report: [facility] , Triglycerides 54 <=150 mg/dL Cholesterol 179 <=200 mg/dL HDL Cholesterol 72 40-60 mg/dL <40 mg/dl - HIGH CARDIOVASCULAR RISK > or =60 mg/dl - LOW CARDIOVASCULAR RISK LDL Cholesterol Calculated 97.0 <100 mg/dl OPTIMAL 130-159 mg/dl BORDERLINE HIGH 100-129 mg/dl NEAR OR ABOVE OPTIMAL >190 mg/dl VERY HIGH 160-189 mg/dl HIGH VLDL CHOLESTEROL 10.8 Chol HDL Ratio 2.5 >11.0 HIGH RISK 7.1 - 11.0 MODERATE RISK 3.3 - 4.4 LOW RISK 4.4 - 7.1 AVERAGE RISK Performing Lab: see note ML - [facility] LB PROF 14(COMP METB) Reviewed date:03/15/2025 10:20:02 AM Interpretation: Performing Lab: Notes/Report: [facility] , Sodium 143 136-145 mmol/L Potassium 3.5 3.5-5.1 mmol/L Chloride 106 98-107 mmol/L Carbon Dioxide 30.5 21.0-32.0 mmol/L Anion Gap 10.0 Glucose 111 74-106 mg/dL Blood Urea Nitrogen 14.0 7.0-18.0 mg/dL Creatinine 0.72 0.55-1.02 mg/dL Estimated GFR ( Leticia >60 >=60 mL/min/1.73m 2 Estimated GFR (Non- Madelin >60 >=60 mL/min/1.73m 2 BUN Creatinine Ratio 19.4 Calcium 8.8 8.5-10.1 mg/dL Bilirubin Total 0.8 0.2-1.0 mg/dL Aspartate Amino Transferase 15 15-37 U/L Alanine Aminotransferase 15 14-59 U/L Alkaline Phosphatase 76 46-116 U/L Total Protein 6.6 6.4-8.2 g/dL Albumin Level 3.5 3.4-5.0 g/dL Globulin 3.1 Albumin Globulin Ratio 1.1 Performing Lab: see note ML - [facility] LB T4 Reviewed date:03/15/2025 10:20:02 AM Interpretation: Performing Lab: Notes/Report: [facility] , T4 Thyroxine 12.40 4.80-13.90 ug/dL Performing Lab: see note ML - [facility] LB TSH Reviewed date:03/15/2025 10:20:02 AM Interpretation: Performing Lab: Notes/Report: [facility] , Thyroid Stimulating Hormone 0.008 0.358-3.740 uIU/mL Performing Lab: see note ML - [facility] LB MM tomosynthesis screening B I Reviewed date:03/15/2025 10:20:02 AM Interpretation: Performing Lab: Notes/Report: Source Facility: [facility]-[address] [place] [address] [place] [address] Mammography Report Signed Patient: GISSELL JOHNSON MR#: [id number] : 1965 Acct:[id number] Age/Sex: 59 / F ADM Date: 03/15/25 Loc: MAMMO Attending Dr: David Hermosillo M.D. Ordering Physician: David Hermosillo M.D. Results: Date of Service: 03/15/25 Follow Up: Procedure(s): MM tomosynthesis screening BI Accession Number(s): [id number] cc: David Hermosillo M.D. Patient Name: GISSELL JOHNSON MR#: [id number] : 1965 Exam Date: 03/15/2025 Ordering Doctor: DR David Hermosillo . RADIOLOGY REPORT PROCEDURE: MM TOMOSYNTHESIS SCREENING BI COMPARISON: MM TOMOSYNTHESIS SCREENING BI, 03/11/2024. MG MAMM SCREEN 3D KHADAR CAD, 02/23/2023. MG MAMM SCREEN 3D KHADAR CAD, 09/02/2021. MG MAMM KHADAR SCRN W CAD DIG, 06/24/2013. INDICATIONS: Screening for malignant neoplasm of breast Calculator Name NCI Breast Cancer Risk Assessment Tool 5 Year Breast Cancer Risk 2.20% Lifetime Breast Cancer Risk 10.90% Personal Breast Cancer No Personal Ovarian Cancer No Treatments None Family Cancers Grandmother-paternal with breast cancer at age 75; Mother with colon cancer at age 65. LOCATION: [facility] BREAST COMPOSITION: The breasts are heterogeneously dense,which may obscure small masses. FINDINGS: RIGHT BREAST: No significant suspicious finding. LEFT BREAST: No significant suspicious finding. Stable post biopsy changes. DIAGNOSTIC CATEGORY 1--NEGATIVE. RECOMMENDATIONS: ROUTINE MAMMOGRAM AND CLINICAL EVALUATION IN 12 MONTHS. PLEASE NOTE: A NORMAL MAMMOGRAM DOES NOT EXCLUDE THE POSSIBILITY OF BREAST CANCER. A CLINICALLY SUSPICIOUS PALPABLE LUMP SHOULD BE BIOPSIED. Dictated by: Evelio Robb DO on 03/15/2025 at 08:19 Approved by: Evelio Robb DO on 03/15/2025 at 08:23 Dictated By: Evelio Robb D.O. Signed By: 03/15/25823 DD/ 2 TD/TT: Vice President Sales: [place] [address] Mammography Report Signed Patient: GISSELL JOHNSON MR#: [id number] : 1965 Acct:[id number] Age/Sex: 59 / F ADM Date: 03/15/25 Loc: MAMMO Attending Dr: Sesar Hermosillo M.D. Ordering Physician: David Hermosillo M.D. Results: Date of Service: 03/15/25 Follow Up: Procedure(s): MM tomosynthesis screening BI Accession Number(s): [id number] cc: David Hermosillo M.D. Patient Name: GISSELL JOHNSON MR#: [id number] : 1965 Exam Date: 03/15/2025 Ordering Doctor: DR David Hermosillo . RADIOLOGY REPORT PROCEDURE: MM TOMOSYNTHESIS SCREENING BI COMPARISON: MM TOMOSYNTHESIS SCREENING BI, 03/11/2024. MG MAMM SCREEN 3D KHADAR CAD, 02/23/2023. MG MAMM SCREEN 3D KHADAR CAD, 09/02/2021. MG MAMM KHADAR SCRN W CAD DIG, 06/24/2013. INDICATIONS: Screeni ng for malignant neoplasm of breast Calculator Name NCI Breast Cancer Risk Assessment Tool 5 Year Breast Cancer Risk 2.20% Lifetime Breast Canc er Risk 10.90% Personal Breast Canc er No Personal Ovarian Can cer No Treatments None Family Cancers Grandmother-paternal with breast cancer at age 75; Mother with colon cancer at age 65. LOCATION: [facility] BREAST COMPOSITION: The breasts are heterogeneously dense,which may obscure small masses. FINDINGS: RIGHT BREAST: No significant suspicious finding. LEFT BREAST: No significant suspicious finding. Stable post biopsy changes. DIAGNOSTIC CATEGORY 1--NEGATIVE. RECOMMENDATIONS: ROUTINE MAMMOGRAM AN D CLINICAL EVALUATION IN 12 MONTHS. PLEASE NOTE: A ALBIN L MAMMOGRAM DOES NOT EXCLUDE THE POSSIBILITY OF BREAST CANCER. A CLINICALLY SUSPICIOUS PALPABLE LUMP SHOULD BE BIOPSIED. Dictated by: Evelio Robb DO on 03/15/2025 at 08:19 Approved by: Evelio Robb DO on 03/15/2025 at 08:23 Dictated By: Evelio Robb D.O. Signed By: 03/15/25823 DD/ 2 TD/TT: Vice President Sales: [facility]LINE thyroid w uptake Reviewed date:03/30/2025 02:36:16 PM Interpretation: Performing Lab: Notes/Report: Source Facility: [facility]-[address] [place] [address] [place] [address] Nuclear Medicine Report Signed Patient: GISSELL JOHNSON MR#: [id number] : 1965 Acct:[id number] Age/Sex: 59 / F ADM Date: 03/29/25 Loc: NM Attending Dr: Davdi Hermosillo M.D. Ordering Physician: David Hermosillo M.D. Date of Service: 03/29/25 Procedure(s): NM thyroid w uptake Accession Number(s): [id number] cc: David Hermosillo M.D. [address] [id number] Patient Name: GISSELL JOHNSON MRN: [id number] date: 1965 Sex: F Assigned Patient Location: OR Current Patient Location: Accession/Order Number: [id number] Exam Date: 03/30/2025 09:25 Report Date: 03/30/2025 09:27 At the request of: DAVID HERMOSILLO MD Procedure: NM thyroid w uptake Radionuclide thyroid uptake and scan . CLINICAL DATA: THYROTOXICOSIS, UNSPECIFIED WITHOUT THYROTOXIC CRISIS/STORM. COMPARISON: None. TECHNIQUE: Following the oral administration of 279 microcuries of I-123 sodium iodide in capsule form, four hour anterior and oblique planar imaging of the neck was performed. Four-hour and 24-hour thyroid uptakes were measured. FINDINGS: No definite hot or cold nodules are noted. Four-hour and 24-hour thyroid uptakes measure 49% (normal 5-20%) and 60% (normal 15-35%), respectively. NM/NM thyroid w uptake Impression: Abnormal thyroid uptake. Findings are consistent with the history. No definite hot or cold nodules identified. Impression dictated by: Basil Ardon Jr., D.OArt 03/30/2025 9:27 AM Dictation Location: [place] [address] Electronically authenticated by: [id number] Y Date: 03/30/2025 09:27 Dictated By: Basil Ardon M.D. Signed By: 03/30/2529 DD/ 6 TD/TT: Vice President Sales: [place] [address] Nuclear Medicine Report Signed Patient: GISSELL JOHNSON MR#: [id number] : 1965 Acct:[id number] Age/Sex: 59 / F ADM Date: 03/29/25 Loc: NM Attending Dr: Sesra Hermosillo M.D. Ordering Physician: David Hermosillo M.D. Date of Service: 03/29/25 Procedure(s): NM thyroid w uptake Accession Number(s): [id number] cc: David Hermosillo M.D. The [address] [address] Patient Name: GISSELL JOHNSON MRN: [id number] date: 1965 Sex: F Assigned Patient Location: OR Current Patient Location: Accession/Order Numb er: [id number] Exam Date: 03/30/2025 09:25 Report Date: 03/30/2025 09:27 At the request of: DAVID HERMOSILLO MD Procedure: NM thyroi d w uptake Radionuclide thyroid uptake and scan . CLINICAL DATA: THYROTOXICOSIS, UNSPECIFIED WITHOUT THYROTOXIC CRISIS/STORM. COMPARISON: None. TECHNIQUE: Following the oral administration of 279 microcuries of I-123 sodium iodide in capsule form, four hour anterior and oblique planar imaging of the neck was performed. Four-hour and 24-hour thyroid uptakes were measured. FINDINGS: No definit e hot or cold nodules are noted. Four-hour and 24-hour thyroid uptakes jacinta ure 49% (normal 5-20%) and 60% (normal 15-35%), respectively. NM/NM thyroid w uptake Impression: Abnormal thyroid uptake. Findings are consistent with the history. No definite hot or cold nodules identified. Impression dictated by: Basil Ardon Jr., D.OArt 03/30/2025 9:27 AM Dictation Location: [place] [address] Electronically authenticated by: [id number] Y Date: 03/30/2025 09:27 Dictated By: Basil Ardon M.D. Signed By: 03/30/25928 DD/ 6 TD/TT: Vice President Sales: FREE T3 Reviewed date:05/04/2025 06:40:54 PM Interpretation: Performing Lab: Notes/Report: [facility] , Free T3 7.03 2.18-3.98 pg/mL Performing Lab: see note ML - [facility] LB T4 Reviewed date:05/04/2025 06:40:54 PM Interpretation: Performing Lab: Notes/Report: [facility] , T4 Thyroxine 14.20 4.80-13.90 ug/dL Performing Lab: see note - [facility] LB TSH Reviewed date:05/04/2025 06:40:54 PM Interpretation: Performing Lab: Notes/Report: [facility] , Thyroid Stimulating Hormone <0.007 0.358-3.740 uIU/mL Performing Lab: see note - [facility] LB GLYCOHEMOGLOBIN A1C Reviewed date:03/15/2025 10:20:02 AM Interpretation: Performing Lab: Notes/Report: [facility] , Glycohemoglobin A1C 5.6 4.5-6.2 % ADA RECOMMENDED LIMIT 4.0 - 6.0 ACTION SUGGESTED > 7.0 ADA THERAPEUTIC TARGET < 7.0 Estimated Average Glucose 114 Performing Lab: see note ML - [facility] LB Reason For Referral No Information Medications Medication SIG (Take, Route, Fr equency, [...] Question Answer Notes Patient is a nonsmoker Alcohol Screen (Audit-C) Question Answer Notes Did you have a drink contain ing alcohol in the past year? Yes How often did you have 6 or more drinks on one occasion in the past year? Never (0 point) How many drinks did you have on a typical day when you were drinking in the past year? 1 or 2 drinks (0 point) How often did you have a dri nk containing alcohol in the past year? Monthly (2 points) Points 2 Interpretation Negative AUDIT-C (Standard) Question Answer Notes Did you [...] 2 Interpretation Negative Section Notes: never smoker never smoker never smoker never smoker never smoker never smoker never smoker never smoker never smoker never smoker never smoker never smoker never smoker never smoker Problems Problem Type SNOMED Code ICD Code Onset Dates Problem Status W/U Status Risk Notes Problem Thyrotoxicosis (63594146) Thyrotoxicosis, unspecified without thyrotoxic crisis or storm (E05.90) Active confirmed Problem Peripheral vertigo (00443273) Other peripheral vertigo, unspecified ear (H81.399) Active confirmed Problem Chronic pansinusitis (60497783) Chronic pansinusitis (J32.4) Active confirmed Problem Disorder of vocal cord (17163902) Other diseases of vocal cords (J38.3) Active confirmed Problem 3859735070822581 Primary osteoarthritis, left ankle and foot (M19.072) Active confirmed Problem 948955943521668 Osteophyte, left foot (M25.775) Active confirmed Problem Cervicocranial syndrome (74882226) Cervicocranial syndrome (M53.0) Active confirmed Problem Acquired trigger finger (9708085) Trigger finger, unspecified finger (M65.30) Active confirmed Problem Tendon contracture (103187900) Short Achilles tendon (acquired), 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) Active confirmed Problem 933696911 Other enthesopat hy of right foot and ankle (M77.51) Active confirmed Problem Fibromyalgia (553850028) Fibromyalgia (M79.7) Active confirmed Problem 75192140 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) Active confirmed Problem 72739769 Snoring (R06.83) Active confirmed Problem Chest pain (28258029) Chest pain (R07.9) Active confirmed Problem Gastroesophageal reflux disease (798741321) GERD (gastroesophageal reflux disease) (K21.9) Active confirmed Problem Cervical radiculopathy (39482385) Cervical radiculopathy (M54.12) Active confirmed Problem Obesity (770246323) Obesity (E66.9) Active conf irmed Problem Carpal tunnel syndrome (41594886) Carpal tunnel syndrome (G56.00) Active confirmed Problem Hypothyroid (72698621) Hypothyroid (E03.9) Active confirmed Problem Osteopenia (005544905) Osteopenia (M85.80) Active confirmed Problem Foot pain (88409401) Foot pain (M79.673) Active confirmed Problem Arthralgia (45545373) Arthralgia (M25.50) Active confirmed Problem Allergic rhinitis (67172044) Allergic rhinitis (J30.9) Active confirmed Problem Chronic sinusitis (80936126) Chronic sinusitis (J32.9) Active confirmed Problem Acute bronchitis (98128811) Acute bronchitis (J20.9) Active confirmed Problem Well adult (892715478) Well adult (Z00.00) Active confirmed Problem Irritable bowel syndrome (14029222) Irritable bowel syndrome (K58.9) Active confirmed Problem Sciatica (61812287) Sciatica (M54.30) Active co nfirmed Problem Osteoarthritis (383416452) AC (acromioclavicular) arthritis (M19.90) Active confirmed Problem Impingement syndrome of shoulder region (774625972) Shoulder impingement (M75.40) Active confirmed Problem Cervical spondylosis (169437347) Cervical spondylosis (M47.812) Active confirmed Problem Disorder of connective tissue (851501252) Connective tissue disorder (M35.9) Active confirmed Problem Lipoma (96371988) Multiple lipom as (D17.9) Active confirmed Problem Overweight (116253863) Over weight (E66.3) Active confirmed Problem Skin sensation disturbance (76816269) Paresthesias/numbnes s (R20.9) Active confirmed Problem 51591778559311646 Intervertebral disc disorder with radiculopathy of lumbosacral region (M51.17) Active confirmed Problem Fibrocystic breast changes (73146074) Fibrocystic breast disease (N60.19) Active confirmed Problem Hoarse (75793739) Hoarse (R49.0) Active confirm ed Problem Cervical disc disorder with radiculopathy (489969191) Cervical disc disorder with radiculopathy (M50.10) Active confirmed Problem Diaphragmatic hernia (80485463) Hernia, hiatal (K44.9) Active confirmed Problem Gastro-esophageal reflux disease (686257582) Gastro-esophageal reflux disease (K21.9) Active confirmed Problem Lipoma of skin (310298138) Lipoma of skin (D17.30) Active confirmed Problem hypercholesterolemia (disorder) (65257469) Hypercholesteremia (E78.00) Active confirmed Problem H/O: hematuria (Z87.448) Active confirmed Problem Localized, primary osteoarthritis of the ankle and/or foot (165348114) Osteoarthritis of first metatarsophalangeal (MTP) joint of left foot (M19.072) Active confirmed Problem Chronic cough (93236039) Chronic cough (R05.3) Active confirmed Problem Chronic low back kit n (finding) (202698134) Chronic midline low back pain without sciatica (M54.50) Active confirmed Problem 49140803493185915 Mass of joint of left ankle (M25.872) Active confirmed Vital Signs Blood pressure diastolic 60 mm Hg 07/07/2025 Height 64.5 in 07/07/2025 Blood pressure systolic 136 mm Hg 07/07/2025 Weight 179.4 lbs 07/07/2025 BMI 30.32 kg/m2 07/07/2025 Encounters Encounter Location Date Provider Diagnosis [address] [address] 01/30/2025 David Hoy Well adult Z00.[address] [address] 02/27/2025 David Hoy Snoring R06.[address] [address] 07/07/2025 David Hoy Shoulder impingement M75.40 and Thyrotoxicosis, unspecified without thyrotoxic crisis or storm E05.[address] [address] 03/30/2025 David Hoy Hypothyroid E03.[address] [address] 05/04/2025 David Hoy Hypothyroid E03.[address] [address] 08/09/2024 David Hoy Fibromyalgia M79.[address] [address] 03/15/2025 David Hoy Thyrotoxicosis, unspecified without thyrotoxic crisis or storm E05.90 Assessments Encounter Date Diagnosis (ICD Code) Assessment Notes Treatment Notes Treatment Clinical Notes Section Notes 01/30/2025 Well adult (ICD-10 - Z00.00) 02/27/2025 Snoring (ICD-10 - R06.83) 07/07/2025 Thyrotoxicosis, unspecified without thyrotoxic crisis or storm (ICD-10 - E05.90) 07/07/2025 Shoulder impingement (ICD-10 - M75.40) 08/09/2024 Fibromyalgia (ICD-10 - M79.7) 03/15/2025 Thyrotoxicosis, unspecified without thyrotoxic crisis or storm (ICD-10 - E05.90) 03/30/2025 Hypothyroid (ICD-10 - E03.9) 05/04/2025 Hypothyroid (ICD-10 - E03.9) Plan Of Treatment Pending Test Test Name Order Date CMP (COMPLETE METABOLIC PANEL) 4 HEMOGLOBIN A1C (GLYCO) 03/04/2024 HEMOGLOBIN A1C (GLYCO) 01/30/2025 IRON, TOTAL 03/04/2024 LIPID PANEL (CHOL/TRIG/HDL/LDL) 03/04/20 24 LIPID PANEL (CHOL/TRIG/HDL/LDL) 01/31/20 25 CBC WITH DIFF 03/04/2024 TSH 03/15/2025 VITAMIN D, 25 LEVEL (TOTAL) 03/04/2024 MAMM Mammograms CAD 03/04/2024 PFT Complete 05/23/2024 Insulin Level 03/04/2024 CT Sinus w/o Contrast 02/17/2024 FREE T3 03/15/2025 FREE T4 03/15/2025 CT CHEST WO CON 12/30/2023 XR CHEST 2 V 12/29/2023 XR SHOULDER RT 2V or > 07/07/2025 THYROID PANEL (T4/TSH/FREE T3) 5 THYROID PANEL (T4/TSH/FREE T3) 5 THYROID PANEL (T4/TSH/FREE T3) 4 THYROID PANEL (T4/TSH/FREE T3) 5 THYROID PANEL (T4/TSH/FREE T3) 5 MM screening mammo BI 01/30/2025 NM THYROID UPTAKE AND SCAN 03/15/2025 CMP (COMP MET ANGELA) w/eGFR CKD-EPI 2024 Insurance Providers Payer Name Payer Address Payer Phone Subscriber Number Group Number Insured Name Patient Relationship to Insured Coverage Start Date Coverage End Date [employer] [address] [place] [address] [id number] Gissell Johnson Self - patient is the insured Medical (General) History Medical History History ICD Code Hallux rigidus, left foot M20.22 Contusion of left foot, subsequent encou nter S90.32XD Contusion of toe of left foot, unspecifi ed toe, subsequent encounter S90.122D Predislocation syndrome of metatarsophal angeal joint, 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 Predislocation syndrome of metatarsophal angeal joint, right M25.871 Contracture of toe of left foot M20.5X2 Hallux rigidus of right foot M20.21 Contracture of toe of right foot M20.5X1 Snoring R06.83 Acute bronchitis J20.9 Over weight E66.3 Trigger finger, unspecified finger M65.3 0 Osteoarthritis of first metatarsophalang eal (MTP) joint of right foot M19.071 Osteoarthritis of first metatarsophalang eal (MTP) joint of left foot M19.072 Other enthesopathy of right foot and ank le M77.51 Other peripheral vertigo, unspecified ea r H81.399 Intervertebral disc disorder with radicu lopathy of lumbosacral region M51.17 Lipoma of skin D17.30 Other specified congenital musculoskelet al deformities Q68.8 Sciatica M54.30 H/O: hematuria Z87.448 Other diseases of vocal cords J38.3 Foot pain M79.673 Well adult Z00.00 Gastro-esophageal reflux disease K21.9 Thyrotoxicosis, unspecified without thyr otoxic crisis or storm E05.90 Chest pain R07.9 Short Achilles tendon (acquired), left a nkle M67.02 Chronic midline low back pain without sc iatica M54.50 Mass of joint of left ankle M25.872 Osteopenia M85.80 Fibromyalgia M79.7 AC (acromioclavicular) arthritis M19.90 Irritable bowel syndrome K58.9 Hernia, hiatal K44.9 Cervical spondylosis M47.812 Cervical disc disorder with radiculopath y M50.10 Cervicocranial syndrome M53.0 Cervical radiculopathy M54.12 Carpal tunnel syndrome G56.00 Connective tissue disorder M35.9 Paresthesias/numbness R20.9 Fibrocystic breast disease N60.19 Allergic rhinitis J30.9 Multiple lipomas D17.9 Arthralgia M25.50 Hypercholesteremia E78.00 Chronic pansinusitis J32.4 Surgical History Surgery Date(Month/Year) biopsy left breast 2017 colonoscopy 2020 cholecystectomy left achilles tendon lengthening Dr. Davey polanco 10/2016 right carpal tunnel 2012 neck C6 and C7 bracket, cadaver bone right shoulder surgery 2011 fatty tumor removed under left arm 2012 1st MPJ, 2nd metatarsal oste otomy, 2nd hammertoe correction with PIPJ arthroplasty left foot Dr. Cerna 09/2022 Hospitalization History Reason Date(Month/Year) Cardiac- but ruled out Surgeries
--- OUTSIDE RECORDS SUMMARY | 2025-07-11 16:48 | XMS_ITS | Clinical Summary ---
Author Organization [facility] Address [address] [place] [address] Phone Care Team Providers Care Automotive Maintenance Technician Name Role Phone Unavailable Primary Care Provider Unavailabl e Allergies No known active allergies Medications famotidine (Pepcid) 20 mg tablet Take 1 tablet (20 mg) by mouth once daily at bedtime. Active cetirizine (ZyrTEC) 10 mg tablet Take 1 tablet (10 mg) by mouth once daily. Active Protonix 40 mg EC tablet 1 tablet Orally Every Evening for 30 day(s) 01/29/2024 Active Active Problems No known active problems Social History Tobacco Use Types Packs/Day Years Used Date Smoking Tobacco: Never Smokeless Tobacco: Never Tobacco Cessation:Counseling Given: Not Answered Alcohol Use Standard Drinks/Week Comments Yes 0 (1 standard drink = 0.6 oz pur e alcohol) Comments Unknown Sex and Gender Information Value Date Recorded Sex Assigned at Not on file Legal Sex Female 10:38 AM EDT Gender Identity Not on file Sexual Orientation Not on file Last Filed Vital Signs Vital Sign Reading Time Taken Comments Blood Pressure - - Pulse - - Temperature - - Respiratory Rate - - Oxygen Saturation - - Inhaled Oxygen Concentration - - Weight 84.6 kg (186 lb 8 oz) 05/21/2024 8:23 AM EDT Height 163.8 cm (5' 4.5 ) 05/21/2024 8:23 AM EDT Body Mass Index 31.52 05/21/2024 8:23 AM EDT Plan of Treatment Health Maintenance Due Date Last Done Comments CT Colonography 1965 FIT-DNA (Cologuard) 1965 FIT 1965 HIV Screening 1965 Lipid Panel 1964 Sigmoidoscopy 1965 Yearly Adult Physical 1965 MMR Vaccines (1 of 1 - Standard series) 1965 Hepatitis C Screening 1982 Cervical Cancer Screening 1985 HPV/Cotest 1985 Pap Smear 1985 DTaP/Tdap/Td Vaccines (1 - Tdap) 1986 Mammogram 2004 Pneumococcal Vaccine (1 of 1 - PCV) 2014 Zoster Vaccines (1 of 2) 2014 COVID-19 Vaccine (4 - season) 2024 11/08/2021, 03/02/2021, 02/09/2021 Influenza Vaccine (#1) 2025 , 08/22/2021, 10/04/2020, Additional history exists Colonoscopy 10/02/2031 10/02/2021, 03/14/2013 Colorectal Cancer Screening 10/02/2031 RSV High Risk: (Elderly (60+) or Population) (1 - 1-dose 75+ series) 2039 HIB Vaccines Aged Out No longer eligi ble based on patient's age to complete this topic HPV Vaccines Aged Out No longer eligi ble based on patient's age to complete this topic Hepatitis A Vaccines Aged Out No long er eligible based on patient's age to complete this topic Hepatitis B Vaccines Aged Out No long er eligible based on patient's age to complete this topic IPV Vaccines Aged Out No longer eligi ble based on patient's age to complete this topic Meningococcal Vaccine Aged Out No marco a reina eligible based on patient's age to complete this topic Rotavirus Vaccines Aged Out No longer eligible based on patient's age to complete this topic Insurance [facility] [address] [employer] HEALTH PLAN
--- NOTE | 2025-07-11 16:50 | XR_ITS ---
[place] [id number] Patient Name: JOSÉ MIGUEL JOHNSON MRN: [id number] date: 1965 Sex: F Assigned Patient Location: [facility] Current Patient Location: [facility] Accession/Order Number: [id number] Exam Date: 07/11/2025 17:28 Report Date: 07/11/2025 17:31 At the request of: DAVID HERMOSILLO MD Procedure: XR shoulder RT min 2V 3 views right shoulder plain film HISTORY: Right shoulder pain for 2 months COMPARISON: None ACUTE FINDINGS: None DEGENERATIVE CHANGE: Minor marginal spurring SOFT TISSUE FINDINGS: Unremarkable JOINT EFFUSION: None POSTOP CHANGES: Spinal fixation hardware BONY MINERALIZATION: Adequate XR/XR shoulder RT min 2V IMPRESSION: Mild degeneration Impression dictated by: Evelio Robb M.D. 07/11/2025 5:31 PM Dictation Location: [place] [id number] Electronically authenticated by: [id number] Date: 07/11/2025 17:31
--- OUTSIDE RECORDS SUMMARY | 2025-07-11 17:00 | XMS_ITS | CCD ---
Author Organization [facility]ini[facility]ms Care Team Providers Care Attendant [employer] Name Role Phone PHYSICIAN, DEFAULT Unavailable Unavailable PHYSICIAN, DEFAULT Unavailable Unavailable DAVID ALBRECHT Unavailable Unavailable PHYSICIAN, DEFAULT Unavailable Unavailable PHYSICIAN, DEFAULT Unavailable Unavailable KRISTALYDAVID Unavailable Unavailable HOY ., DR HERNANDEZ Primary [...] JAIRO Attending Unavailable RADHA, JAIRO Admitting Unavailable RADHAJAIRO Consulting Unavailable HOY ., DR HERNANDEZ Primary [...] .MAXIMILIANO Consulting Unavailable LUZ HAMMOND Consulting Unava ilPORFIRIO Barlow Consulting Unavailable HOY ., DR HERNANDEZ [...] JAIRO Admitting Unavailable RADHA, JAIRO Consulting Unavailable JAIRO GARCIA Attending Unavailable HOY ., DR HERNANDEZ Primary Care Unavailable BUZZ ROCA Consulting Unavailable HOY ., DR HERNANDEZ Primary Care Unavailable ZIEBER, DR AMADOU Heredia Consulting Unavailable HIGHLANDER, PETER D Admitting Unavailable HIGHLANDER, ADAMARIS Amaya Attending Unavailable HIGHLANDER, ADAMARIS Amaya Consulting Unavailable HOY ., DR HERNANDEZ Primary Care Unavailable ZIEBER, DR AMADOU Heredia Consulting Unavailable HIGHLANDER, ADAMARIS Amaya Admitting Unavailable HIGHLANDER, ADAMARIS Amaya Attending Unavailable HIGHLANDER, ADAMARIS Amaya Consulting Unavailable BAY ., DR HERNANDEZ Primary Care Unavailable BENEDICT, DR DE LOS SANTOS Consulting Unavailable BENEDICT, DR DE LOS SANTOS Attending Unavailable BENEDICT, DR DE LOS SANTOS Admitting Unavailable ANDREW PARIKH Consulting Unavailable David Albrecht Primary Care Physician Amrita Wilkins Admitting Unavailable TimmisAmrita Attending Unavailable TimmisAmrita H Referring Unavailable TIMMIS, AMRITA H Attending Unavailable TIMMIS, AMRITA H Attending Unavailable RENE OSEGUERA Attending Unavailable Unavailable Primary Care Provider Unavailabl e Medications Current Medications Medication Drug Class(es) Dates Sig (Normalized) Sig (Original) cetirizine hydrochloride 10 mg oral tablet (1 source) Histamine-1 Receptor Antagonist take 1 tablet by mouth once daily cetirizine (ZyrTEC) 10 mg tablet Take 1 tablet (10 mg) by mouth once daily. Active famotidine 20 mg oral tablet (1 source) Histamine-2 Receptor Antagonist take 1 tablet by mouth once daily at bedtime famotidine (Pepcid) 20 mg tablet Take 1 tablet (20 mg) by mouth once daily at bedtime. Active meloxicam 15 mg oral tablet (1 source) Nonsteroidal Anti-inflammatory Drug Start: 08-23-2021 take 1 mg by mouth once daily Mobic 15 mg Tab mg tab(s), Oral, Daily, Refills(s) 0 Start Date: 08/23/21 Status: Ordered pantoprazole 40 mg delayed release oral tablet (1 source) Proton Pump Inhibitor Start: 01-29-2024 take 1 tablet by mouth once daily in the evening Protonix 40 mg EC tablet 1 tablet Orally Every Evening for 30 day(s) 01/29/2024 Active tiZANidine 4 mg oral tablet (1 source) Central alpha-2 Adrenergic Agonist Start: 08-23-2021 take 1 mg by mouth every eight hours tiZANidine 4 mg Tab mg tab(s), Oral, q8hr, Refills(s) 0 Start Date: 08/23/21 Status: Ordered Problems Active Problems Problem Classification Problem Date Documented Da te Episodic/Chronic Abdominal hernia (1 source) Hiatal hernia 01-21-2021 Episodic Acquired foot deformities (6 sources) Hallux rigidus, left foot; Translations: [Other hammer toe(s) (acquired), left foot] Onset: 2 Chronic Esophageal disorders (2 sources) Gastroesophageal reflux disease; Translations: [Gastroesophageal reflux disease without esophagitis] 01-21-2021 Chronic Nonmalignant breast conditions (1 source) Fibrocystic disease of breast 01-21-2021 Chronic Osteoarthritis (5 sources) Primary osteoarthritis, left ankle and foot; Translations: [Arthritis] Onset: 3 Chronic Other and unspecified benign neoplasm (1 source) Lipoma (clinical) 01-21-2021 Episodic Other bone disease and musculoskeletal deformities (1 source) Osteopenia 01-21-2021 Episodic Other connective tissue disease (1 source) Fibromyalgia 01-21-2021 Episodic Other gastrointestinal disorders (1 source) Irritable bowel syndrome 01-21-2021 Chronic Other nervous system disorders (1 source) Carpal tunnel syndrome 08-30-2021 Chronic Other nutritional; endocrine; and metabolic disorders (1 source) Body mass index 30+ - obesity 09-03-2021 Chronic Other screening for suspected conditions (not mental disorders or infectious disease) (1 source) Encounter for screening mammogram for malignant neoplasm of breast; Translations: [ENC SCR MAMMO MALIG NEOPLASM BREAST] Onset: 3 Episodic Other upper respiratory infections (2 sources) Chronic maxillary sinusitis; Translations: [Chronic maxillary sinusitis] 05-21-2024 Chronic Residual codes; unclassified (4 sources) Obstructive sleep apnea (adult) (pediatric); Translations: [OBSTRUCTIVE SLEEP APNEA] Onset: 3 Chronic Residual codes; unclassified (1 source) Family history of malignant neoplasm of breast; Translations: [FAMILY HX MALIG NEOPLASM OF BREAST] Onset: 3 Episodic Residual codes; unclassified (1 source) Family history of malignant neoplasm of digestive organs; Translations: [FAM HX MALIG NEOPLASM DIGESTIV ORGN] Onset: 3 Episodic Residual codes; unclassified (1 source) Family history of cancer of colon 09-03-2021 Episodic Spondylosis; intervertebral disc disorders; other back problems (1 source) Degeneration of cervical intervertebral disc 01-21-2021 Chronic Spondylosis; intervertebral disc disorders; other back problems (1 source) Chronic low back pain 01-21-2021 Episodic Systemic lupus erythematosus and connective tissue disorders (1 source) Undifferentiated connective tissue disease 08-30-2021 Chronic Unclassified (4 sources) CONTACT W/AND (SUSP) EXPOS COVID-19; Translations: [CONTACT W/AND (SUSP) EXPOS COVID-19] Onset: 2 Unclassified (1 source) COUGH, UNSPECIFIED; Translations: [COUGH, UNSPECIFIED] Onset: 3 Unclassified (2 sources) New Patient Visit; Translations: [New Patient Visit] Onset: 4 Past or Other Problems Problem Classification Problem [...] IN RIGHT FOOT] Onset: 03-26-2022 Episodic Other lower respiratory disease (1 source) Chronic cough; Translations: [Chronic cough] 05-21-2024 Episodic Other non-traumatic joint disorders (1 source) Other specified joint disorders, left ankle and foot; Translations: [OTHER SPEC JOINT D/O LT ANKLE FOOT] Onset: 10-27-2022 Episodic Other non-traumatic joint disorders (4 sources) Pain in right ankle and joints of right foot; Translations: [PAIN IN RIGHT ANKLE] Onset: 06-25-2022 Episodic Other upper respiratory disease (1 source) Nasal congestion; Translations: [NASAL CONGESTION] Onset: 11-30-2022 Episodic Other upper respiratory disease (1 source) Deviated nasal septum; Translations: [Deviated nasal septum] 05-21-2024 Episodic Unclassified (1 source) CONTACT W/AND (SUSP) EXPOS COVID-19; Translations: [CONTACT W/AND (SUSP) EXPOS COVID-19] Onset: 11-28-2022 Results Test Name Value Interpretation Reference Range Facility CT Maxillofacial w/o Contras ton 04-08-2024 CT Maxillofacial w/o Contrast Exam Date/Time: 04/05/2024 16:58 EDT Reason for [...] Wilkins FINAL REPORT Dictated: 04/08/2024 1:29 pm Teri MD, Porfirio L. Signed (Electronic Signature): 04/08/2024 1:29 pm Signed by: Porfirio Williamson MD Transcribed by: ROSETTA Technologist: FABIENNE Normal [facility] Consent for Treatmenton 03-23 Consent for Treatment [id number] Normal [facility] Physician Orderon 03-23-2024 Physician Order [id number] .[id number] Normal [facility] INSULINon 02-24-2023 Insulin 19.8 uIU/mL Normal 2.6-24.9 [facility] Comment on above: Performed By: #### I NSULIN #### [facility] [address] [place] [address] Dr. Hunter Weaver CBC AUTO DIFFon 02-23-2023 BASO # 0.0 103/ul Normal 0.0-0.1 [facility] Comment on above: Performed By: #### C BC #### [facility] [address] [place] [address] Dr. Hunter Weaver Basophils/100 WBC (Bld) 0.3 % Normal 0.2-2.0 [facility] Comment on above: Performed By: #### C BC #### [facility] [address] [place] [address] Dr. Hunter Weaver EO # 0.1 103/ul Normal 0.0-0.7 [facility] Comment on above: Performed By: #### C BC #### [facility] [address] [place] [address] Dr. Hunter Weaver Eosinophils/100 WBC (Bld) 1.5 % Normal 0.9-7.0 [facility] Comment on above: Performed By: #### C BC #### [facility] [address] [place] [address] Dr. Hunter Weaver Erythrocyte distribution width (RBC) [Ratio] 12.3 % Normal 11.0-15.0 [facility] Comment on above: Performed By: #### C BC #### [facility] [address] [place] [address] Dr. Hunter Weaver Hematocrit (Bld) [Volume fraction] 40.4 % Normal 36.0-48.0 [facility] Comment on above: Performed By: #### C BC #### [facility] [address] [place] [address] Dr. Hunter Weaver Hemoglobin (Bld) [Mass/Vol] 13.5 g/dL Normal 12.0-16.0 [facility] Comment on above: Performed By: #### C BC #### [facility] [address] [place] [address] Dr. Hunter Weaver IG # 0.06 10e3/ul Critically high 0.00-0.03 [facility] Comment on above: Performed By: #### C BC #### [facility] [address] [place] [address] Dr. Hunter Weaver IG % 0.7 % Critically high 0.0-0.5 [facility] Comment on above: Performed By: #### C BC #### [facility] [address] [place] [address] Dr. Hunter Weaver LYMPH # 3.2 103/ul Normal 1.2-3.8 [facility] Comment on above: Performed By: #### C BC #### [facility] [address] [place] [address] Dr. Hunter Weaver Lymphocytes/100 WBC (Bld) 34.5 % Normal 20.5-60.0 [facility] Comment on above: Performed By: #### C BC #### [facility] [address] [place] [address] Dr. Hunter Weaver MANUAL DIFF REQ NO Normal [facility] Comment on above: Performed By: #### C BC #### [facility] [address] [place] [address] Dr. Hunter Weaver MCH (RBC) [Entitic mass] 31.3 pg Normal 26.7-34.0 [facility] Comment on above: Performed By: #### C BC #### [facility] [address] [place] [address] Dr. Hunter Weaver MCHC (RBC) [Mass/Vol] 33.4 g/dL Normal 29.9-35.2 [facility] Comment on above: Performed By: #### C BC #### [facility] [address] [address] [address] Hunter Weaver MCV (RBC) [Entitic vol] 93.5 fL Normal 81.0-99.0 [facility] Comment on above: Performed By: #### C BC #### [facility] [address] [address] [address] Hunter Weaver MONO # 0.6 103/ul Normal 0.3-0.8 [facility] Comment on above: Performed By: #### C BC #### [facility] [address] [place] [address] Dr. Hunter Weaver Monocytes/100 WBC (Bld) 6.4 % Normal 1.7-12.0 [facility] Comment on above: Performed By: #### C BC #### [facility] [address] [place] [address] Dr. Hunter Weaver NEUT # 5.2 103/ul Normal 1.4-6.5 [facility] Comment on above: Performed By: #### C BC #### [facility] [address] [place] [address] Dr. Hunter Weaver Neutrophils/100 WBC (Bld) 56.6 % Normal 43.0-75.0 [facility] Comment on above: Performed By: #### C BC #### [facility] [address] [place] [address] Dr. Hunter Weaver Platelet mean volume (Bld) [Entitic vol] 9.8 fL Normal 9.5-13.5 [facility] Comment on above: Performed By: #### C BC #### [facility] [address] [place] [address] Dr. Hunter Weaver PLT 285 103/ul Normal 150-450 [facility] Comment on above: Performed By: #### C BC #### [facility] [address] [place] [address] Dr. Hunter Weaver RBC 4.32 106/ul Normal 4.20-5.40 [facility] Comment on above: Performed By: #### C BC #### [facility] [address] [address] [address] Hunter Weaver WBC 9.2 103/ul Normal 4.0-11.0 [facility] Comment on above: Performed By: #### C BC #### [facility] [address] [address] [address] Hunter Weaver FREE THYROXINE INDEX T7on FTI 3.98 Normal 1.30-4.50 [facility] Comment on above: Performed By: #### C MP, LIPID, T7, TSH ####[facility] [address] [place] [address]DrArt Weaver T3U 39.0 % Normal 30.0-39.0 [facility] Comment on above: Performed By: #### C MP, LIPID, T7, TSH ####[facility] [address] [place] [address]DrArt Weaver T4 [Mass/Vol] 10.20 ug/dL Normal 4.80-13.90 [facility] Comment on above: Performed By: #### C MP, LIPID, T7, TSH ####[facility] [address] [address]DrArt Weaver GLYCOHEMOGLOBIN A1Con 2022 ADA RECOMMENDATION SEE BELOW Normal [facility] Comment on above: Result Comment: ADA RECOMMENDED LIMIT 4.0 - 6.0 ADA THERAPEUTIC TARGET < 7.0 ACTION SUGGESTED > 7.0 Performed By: #### A 1C ####[facility] [address] [address]DrArt Weaver Glucose [Mass/Vol] 111 mg/dL Normal [facility] Comment on above: Performed By: #### A 1C ####[facility] [address] [place] [address]DrArt Weaver HbA1c (Bld) [Mass fraction] 5.5 % Normal 4.5-6.2 [facility] Comment on above: Performed By: #### A 1C ####[facility] [address] [place], [place] [address]Vu. Hunter Weaver IRONon 02-23-2023 Iron [Mass/Vol] 165.0 ug/dL Normal 50.0-170.0 [facility] Comment on above: Performed By: #### I MATTHEW #### [facility] [address] [place], [place] [address] Dr. Hunter Weaver LIPID PROFILEon 02-23-2023 CHOL-HDL RATIO NORM SEE BELOW Normal [facility] Comment on above: Result Comment: 3.3 - 4.4 LOW RISK 4.4 - 7.1 AVERAGE RISK 7.1 - 11.0 MODERATE RISK >11.0 HIGH RISK Performed By: #### C MP, LIPID, T7, TSH ####[facility] [address] [place] [id number]. Hunter Weaver Cholesterol [Mass/Vol] 192 mg/dL Normal <=200 [facility] Comment on above: Performed By: #### C MP, LIPID, T7, TSH ####[facility] [address] [place] [id number]. Hunter Weaver Cholesterol in HDL [Mass/Vol] 58 mg/dL Normal 40-60 [facility] Comment on above: Performed By: #### C MP, LIPID, T7, TSH ####[facility] [address] [place], [place] [address]Gt. Hunter Weaver Cholesterol in LDL [Mass/Vol] 109.6 mg/dL Normal [facility] Comment on above: Performed By: #### C MP, LIPID, T7, TSH ####[facility] [address] [place], [place] [address]Au. Hunter Weaver Cholesterol.total/Cho lesterol in HDL [Mass ratio] 3.3 {ratio} Normal [facility] Comment on above: Performed By: #### C MP, LIPID, T7, TSH ####[facility] [address] [place] [id number]. Hunter Weavre HDL NORMAL > or = 60 mg/dl - LO W CARDIOVASCULAR RISK <40 mg/dl - HIGH CARDIOVASCULAR RISK Normal [facility] Comment on above: Performed By: #### C MP, LIPID, T7, TSH ####[facility] [address] [place], [place] [address]Ra. Hunter Weaver LDL CALC NORMAL SEE BELOW Normal [facility] Comment on above: Result Comment: <100 mg/dl OPTIMAL 100 - 129 mg/dl NEAR OR ABOVE OPTIMAL 130 - 159 mg/dl BORDERLINE HIGH 160 - 189 mg/dl HIGH >190 mg/dl VERY HIGH Performed By: #### C MP, LIPID, T7, TSH ####[facility] [address] [place], [place] [address]Zf. Hunter Weaver Triglyceride [Mass/Vol] 122 mg/dL Normal <=150 [facility] Comment on above: Performed By: #### C MP, LIPID, T7, TSH ####[facility] [address] [place], [place] [address]Tn. Hunter Weaver VLDL CALC 24.4 mg/dL Normal [facility] Comment on above: Performed By: #### C MP, LIPID, T7, TSH ####[facility] [address] [place], [place] [address]Cf. Hunter Weaver MG MAMM SCREEN 3D KHADAR CADon 02-23-2023 MG MAMM SCREEN 3D KHADAR CAD Patient: GISSELL FISHER Exam Date: 02/23/2023 : 1965 Gender:F Ordering : DR DAVID ALBRECHT . Admission #: [id number] Family : Order #: [id number] CLICK HERE TO VIEW EXAM RADIOLOGY REPORT [...] at age 64. LOCATION: The [facility] BREAST COMPOSITION: Heterogeneously dense,which may obscure [...] Scruggs M.D. on 02/23/2023 at 11:02 Normal [facility] PROF 14(COMP METB)on 023 Albumin [Mass/Vol] 3.6 g/dL Normal 3.4-5.0 [facility] Comment on above: Performed By: #### C MP, LIPID, T7, TSH ####[facility] [address] [place] [address]Dr. Hunter Weaver Albumin/Globulin [Mass ratio] 1.1 {ratio} Normal [facility] Comment on above: Performed By: #### C MP, LIPID, T7, TSH ####[facility] [address] [place] [address]Dr. Hunter Weaver ALP [Catalytic activity/Vol] 114 U/L Normal 46-116 [facility] Comment on above: Performed By: #### C MP, LIPID, T7, TSH ####[facility] [address] [place] [id number]. Hunter Weaver ALT [Catalytic activity/Vol] 20 U/L Normal 14-59 [facility] Comment on above: Performed By: #### C MP, LIPID, T7, TSH ####[facility] [address] [place] [id number]. Hunter Weaver Anion gap [Moles/Vol] 13.2 mmol/L Normal [facility] Comment on above: Performed By: #### C MP, LIPID, T7, TSH ####[facility] [address] [place] [id number]. Hunter Weaver AST [Catalytic activity/Vol] 17 U/L Normal 15-37 [facility] Comment on above: Performed By: #### C MP, LIPID, T7, TSH ####[facility] [address] [place] [address]Dr. Hunter Weaver Bilirubin [Mass/Vol] 0.5 mg/dL Normal 0.2-1.0 [facility] Comment on above: Performed By: #### C MP, LIPID, T7, TSH ####[facility] [address] [place] [address]Dr. Hunter Weaver Calcium [Mass/Vol] 8.4 mg/dL Critically low 8.5-10.1 Th e [facility] Comment on above: Performed By: #### C MP, LIPID, T7, TSH ####[facility] [address] [address]Dr. Hunter Weaver Chloride [Moles/Vol] 105 mmol/L Normal 98-107 [facility] Comment on above: Performed By: #### C MP, LIPID, T7, TSH ####[facility] [address] [place] [address]Dr. Hunter Weaver CO2 [Moles/Vol] 28.7 mmol/L Normal 21.0-32.0 [facility] Comment on above: Performed By: #### C MP, LIPID, T7, TSH ####[facility] [address] [place] [address]Dr. Hunter Weaver Creatinine [Mass/Vol] 0.65 mg/dL Normal 0.55-1.02 [facility] Comment on above: Performed By: #### C MP, LIPID, T7, TSH ####[facility] [address] [address]Dr. Haylielan Weaver EGFR-AF JAPANESE >60 Normal >=60 [facility] Comment on above: Performed By: #### C MP, LIPID, T7, TSH ####[facility] [address] [place] [address]Dr. Hunter Weaver EGFR-NON AF JAPANESE >60 Normal >=60 [facility] Comment on above: Performed By: #### C MP, LIPID, T7, TSH ####[facility] [address] [place] [address]Dr. Hunter Weaver Globulin (S) [Mass/Vol] 3.3 g/dL Normal [facility] Comment on above: Performed By: #### C MP, LIPID, T7, TSH ####[facility] [address] [place] [address]Dr. Hunter Weaver Glucose [Mass/Vol] 122 mg/dL Critically high 74-106 T [facility] Comment on above: Performed By: #### C MP, LIPID, T7, TSH ####[facility] [address] [place] [address]Dr. Hunter Weaver Potassium [Moles/Vol] 3.9 mmol/L Normal 3.5-5.1 [facility] Comment on above: Performed By: #### C MP, LIPID, T7, TSH ####[facility] [address] [place] [address]Dr. Hunter Weaver Protein [Mass/Vol] 6.9 g/dL Normal 6.4-8.2 [facility] Comment on above: Performed By: #### C MP, LIPID, T7, TSH ####[facility] [address] [place], [place] [address]Dr. Hunter Weaver Sodium [Moles/Vol] 143 mmol/L Normal 136-145 [facility] Comment on above: Performed By: #### C MP, LIPID, T7, TSH ####[facility] [address] [place] [address]Dr. Hunter Weaver Urea nitrogen [Mass/Vol] 12.0 mg/dL Normal 7.0-18.0 [facility] Comment on above: Performed By: #### C MP, LIPID, T7, TSH ####[facility] [address] [place], [place] [address]Dr. Hunter Weaver Urea nitrogen/Creatinine [Mass ratio] 18.5 mg/mg Normal [facility] Comment on above: Performed By: #### C MP, LIPID, T7, TSH ####[facility] [address] [place] [address]Dr. Hunter Weaver TSHon 02-23-2023 TSH Qn m[IU]/L Critically low 0.358-3.740 [facility] Comment on above: Performed By: #### C MP, LIPID, T7, TSH ####[facility] [address] [place], [place] [address]Xg. Hunter Weaver [facility]on SARS-CoV-2 (COVID-19) RNA CHRIS+probe Ql (Unsp spec) Not detected Normal NOT DETECTED [facility] Comment on above: Result Comment: When [...] for this test is supported by the Beam Department Supervisor of Health and Human Service's declaration that [...] longer be used). Performed By: #### C VDTBH ####[facility] [address] [place], [place] [address]Na. Hunter Weaver INFLUENZA A AND B AGon 11-28 INFLUANEGH SEE BELOW Normal [facility] Comment on above: Result Comment: Nega tive for Flu A protein angiten. Infection due to Flu A cannot be ruled out. Flu A angiten in the sample may be below the detection limit of the test. Performed By: #### I NFLUAB #### [facility] [address] [place], [place] [address] Dr. Hunter Weaver INFLUBNEGH SEE BELOW Normal [facility] - [employer] Comment on above: Result Comment: Nega tive for Flu B protein antigen. Infection due to Flu B cannot be ruled out. Flu B antigen in the sample may be below the detection limit of the test. Performed By: #### I NFLUAB #### [facility] [address] [address] [address] Hunter Weaver INFLUENZA A AG Negative Normal NEGATIVE SEE COMMENT [facility] Comment on above: Performed By: #### I NFLUAB #### [facility] [address] [address] [address] Hunter Weaver INFLUENZA B AG Negative Normal NEGATIVE SEE COMMENT [facility] Comment on above: Performed By: #### I NFLUAB #### [facility] [address] [address] [address] Hunter Weaver MRA NECK WO CONon 11-20-2022 MRA NECK WO CON EXAMINATION: MRI BRAIN WO CON, MRA NECK WO CON, MRA HEAD WO CON HISTORY: Dizziness and giddiness COMPARISON: None. TECHNIQUE: Multiplanar, multisequence MRI images of the brain were obtained without contrast. MR angiogram of the head and neck were obtained with [id number]-[id number] technique, with maximum intensity projection images. FINDINGS: MRI BRAIN: No restricted diffusion. No foci of abnormal signal. Ventricles and sulci normal in size. No hydrocephalus. There is no midline shift, mass effect, or abnormal extraaxial fluid collections. Pituitary gland is not abnormally enlarged. There is no evidence for a Chiari I malformation. The orbital apices are clear. The flow voids of the lower [place] of [place] are visualized, implying that the vessels are patent. MRA BRAIN: Flow in all major intracranial arteries without flow limiting stenosis or occlusion. No appreciable intracranial aneurysms or vascular malformations. MRA NECK: The aortic arch and origins of the great vessels are not included in the [id number]-sz-[id number] secondary to noncontrast technique. Carotid bifurcations are [...] ANDREW PARIKH Date: 2022-11-19 22:12 Normal [facility] US TAISHA DOP LEG LTon 10-30-20 US [...] AMADOU SCRUGGS Date: 2022-10-30 11:58 Normal [facility] POINT OF CARE GLUCOSEon 09-24 Glucose [Mass/Vol] 129 mg/dL Critically high 74-106 [facility] Comment on above: Performed By: #### P OCGLUC #### [facility] [address] [address] [address] Hunter Weaver Glucose [Mass/Vol] 117 mg/dL Critically high 74-106 [facility] Comment on above: Performed By: #### P OCGLUC #### [facility] [address] [address] [address] Hunter Weaver Covid-19 PCR ([facility])on 09-24 SARS-CoV-2 (COVID-19) RNA CHRIS+probe Ql (Unsp spec) Not detected Normal NOT DETECTED [facility] Comment on above: Result Comment: This test is not yet approved or cleared by the [place] FDA. When there are no FDA-approved or cleared tests available, and other criteria are met, FDA can make tests available under an emergency access mechanism called an Emergency Use Authorization (EUA). The EUA for this test is supported by the [place] of Health and Human Service's (HHS's) declaration [...] consistent with SARS-CoV-2. Performed By: #### C VDTB #### [facility] [address] [address] [address] Hunter Weaver Vital Signs Date Time Vital Sign Value Performing Clinician Michael turcios 05-21-2024 08:040 Body height 163.8 cm Rene Oseguera MD Work Phone: [facility] 05-21-2024 08: Body mass index (BMI) [Ratio] 31.52 kg/m2 Rene Oseguera MD Work Phone: [facility] 05-21-2024 08:040 Body weight 84.6 kg Rene Oseguera MD Work Phone: [facility] Encounters Encounter Date Encounter Type Care Provider Facility Start: 05-21-2024 End: 05-21-2024 Office consultation new/estab patient 80 min Rene Oseguera MD Work Phone: [facility] Comment on above: Chronic maxillary si nusitis (Primary Dx); Deviated nasal septum; Chronic cough; Chronic frontal sinusitis Start: 05-21-2024 End: 05-21-2024 ambulatory RENE OSEGUERA [facility] Start: 04-12-2024 End: 04-12-2024 ambulatory AMRITA Mcclendon TIMMIS Not Available Start: 04-05-2024 End: 04-06-2024 ambulatory Amrita H Timmis [facility] Start: 04-05-2024 End: 04-05-2024 Patient encounter procedure Amrita Finchmis [facility] Start: 03-08-2024 End: 03-08-2024 ambulatory AMRITA H TIMMIS Not Available Start: 03-10-2023 End: 03-11-2023 ambulatory JAIRO GARCIA Facility:[facility] Start: 03-03-2023 End: 03-04-[address] DAVID ALBRECHT . Facility:[facility] Start: 02-27-2023 Encounter for genera l adult medical examination without abnormal findings DR DAVID ALBRECHT . [facility] Start: 02-23-2023 End: 02-24-[address] DAVID [...] 10-31-2022 Encounter for preprocedural laboratory examination ADAMARIS CERNA [facility] Start: 10-30-2022 End: 10-31-[address] DAVID ALBRECHT . Facility:[facility] Start: 10-20-2022 End: 10-20-[address] DAVID ALBRECHT . Facility:[facility] Start: 10-15-2022 End: 10-16-[address] DAVID ALBRECHT . Facility:[facility] Start: 10-15-2022 End: 10-16-2022 Encounter for preprocedural laboratory examination DR DAVID ALBRECHT . Facility:[facility] Start: 10-11-2022 Encounter for other preprocedural examination ADAMARIS CERNA [facility] Start: 10-08-2022 End: 10-09-[address] DAVID ALBRECHT . Facility:[facility] Start: 10-08-2022 End: 10-09-2022 Encounter for other preprocedural examination DR DAVID ALBRECHT . Facility:[facility] Start: 06-25-2022 End: 06-26-[address] DVAID ALBRECHT . Facility:[facility] Start: 03-26-2022 End: 03-27-[address] DAVID ALBRECHT . Facility: Start: 09-29-2017 End: 09-30-2017 Ambulatory DEFAULT PHYSICIAN Facility:[facility] Start: 09-28-2017 End: 09-29-2017 Ambulatory DEFAULT PHYSICIAN Facility:[facility] Procedures Date Procedure Procedure Detail Performing Clinician Start: 10-02-2021 Colonoscopy Rene Oseguera MD Work Phone: Start: 10-02-2021 Colonoscopy Amrita Timmis Start: 02-24-2018 Biopsy of breast Amrita Timmis Start: 11-07-2015 Decompression of median nerve Amrita Stef mis Comment on above: left Start: 10-04-2013 Excision of lipoma Amrita Timmis Comment on above: axilla Start: 03-14-2013 Colonoscopy Amrita Timmis Start: 03-14-2013 Esophagogastroduodenoscopy Amrita Timmis Arthroscopy of shoulder Ethel ry Timmis Comment on above: right Cholecystectomy Amrita Timmi s History of surgical procedure on cervical spine Amrita Timmis Plan of Treatment Date Care Activity Detail Author Start: 10-02-2031 Screening for malign ant neoplasm of colon [facility] Start: 07-24-2024 Influenza vaccination Influenz a Vaccine (Season Ended) [facility] Start: 07-24-2023 COVID-19 Vaccine ( season) COVID-19 Vaccine ( season) [facility] Start: 2014 Zoster Vaccines (1 of 2) Zoste r Vaccines (1 of 2) [facility] Start: 2004 Screening for malign ant neoplasm of breast Mammogram [facility] Start: 1986 DTaP/Tdap/Td Vaccine s (1 - Tdap) DTaP/Tdap/Td Vaccines (1 - Tdap) [facility] Start: 1985 Screening for malign ant neoplasm of cervix [facility] Start: 1983 Hepatitis B Vaccines (1 of 3 - 19+ 3-dose series) Hepatitis B Vaccines (1 of 3 - 19+ 3-dose series) [facility] Start: 1982 Hepatitis C screening Hepatitis C Sc [facility] Start: 1965 MMR Vaccines (1 of 1 - Standard series) MMR Vaccines (1 of 1 - Standard series) [facility] Start: 1964 HIV screening HIV Screening [facility] Start: 1964 Lipid panel Lipid Panel [facility] Start: 1964 Screening for malign ant neoplasm of colon [facility] Start: 1964 Yearly Adult Physical Yearly Adult P hysical [facility] Immunizations Immunization Date Immunization Notes Care Provider Fa cili 09-13-2021 influenza virus vaccine, unspecified formulation Rene Oseguera MD Work Phone: [facility] Work Phone: 03-02-2021 SARS-CoV-2 (COVID-19 ) Ad26 vaccine, recombinant Amrita Timmis [facility] 02-09-2021 SARS-CoV-2 (COVID-19 ) Ad26 vaccine, recombinant Amrita Timmis [facility] Payers Date Payer Category Payer Private Health Insurance [facility] [id number] 2013-Present [address] [place] [id number] [place] [id number] 2013 Private Health Insurance [id number] 1964 Unknown [id number] .593 1964 Unknown [id number] 2.16.840.1.268783.3.579.2 .593 1964 Unknown [id number] 2.16.840.1.705993.3.579.2 .593 1964 Unknown [id number] 2.16.840.1.501746.3.579.2 .593 1964 Unknown [id number] 2.16.840.1.177684.3.579.2 .593 1964 Unknown [id number] 2.16.840.1.906791.3.579.2 .593 1964 Unknown [id number] 2.16.840.1.854658.3.579.2 .593 1964 Unknown [id number] 2.16.840.1.703035.3.579.2 .593 1964 Unknown [id number] 2.16.840.1.331432.3.579.2 .593 1964 Unknown [id number] 2.16.840.1.325612.3.579.2 .593 1964 Unknown [id number] 2.16.840.1.012792.3.579.2 .593 1964 Unknown [id number] 2.16.840.1.041172.3.579.2 .593 1964 Unknown [id number] 2.16.840.1.400920.3.579.2 .593 1964 Unknown [id number] 2.16.840.1.430965.3.579.2 .593 1964 Unknown [id number] 2.16.840.1.571534.3.579.2 .727 1964 Unknown [id number] 2.16.840.1.613475.3.579.2 .1259 1964 Unknown [id number] 2.16.840.1.643086.3.579.2 .1259 1964 Unknown [id number] 2.16.840.1.013927.3.579.2 .1244 1960 Private Health Insurance [id number] Unknown Social History Date Type Detail Facility Start: 09-03-2021 End: 05-21-2024 Tobacco smoking status Never smoked tobacco (finding) [facility] Tobacco smoking status Never Corinne heredia [facility] Start: 05-21-2024 Sex Assigned At Female F [facility] Start: 05-21-2024 Tobacco use and exposure Smokeless tobacco non-user [facility] Work Phone: Start: 05-21-2024 Alcoholic beverage intake Current drinker of alcohol (finding) [facility] Work Phone: Start: 05-21-2024 History of Social function [facility] Work Phone: Start: 1965 Sex assigned at Not on file [facility] Work Phone: Start: 05-11-2024 End: 05-21-2024 Exposure to SARS-CoV-2 (event) Not sure [facility] Clinical Notes 03-26-2022 to 05-21-2024 Rene Oseguera MD - 05/21/2024 8:30 AM EDT Note Date & Type Note Facility 05-21-2024 History of Present illness Narrative Chief Complaint: Cough History Of Present Illness: Gissell Fisher presents in consultation through Dr. Wilkins for evaluation of chronic sinusitis and cough. She was in her normal state of health until September of last year when she developed significant issues related to coughing. This persisted and was associated with intermittent hoarseness. She also has the sensation that there is something in her throat. In November / December she was seen and given oral antibiotic therapy. Her cough continued and she underwent a chest x-ray with a questionable finding and she underwent a CT chest did not demonstrate any concerning findings. She was prescribed a number of medical therapies including Zyrtec, Pepcid, Protonix and Trelegy. The reflux therapy seem to provide some benefit but not resolution. She has not yet been evaluated by pulmonary. Main Symptoms: Patient has anterior nasal drainage. Initially in September but none currently Patient has posterior nasal drainage. Sensation of postnasal drainage Patient does not have nasal airway obstruction. Patient has facial pain. Can feel burning about once a month that lasts for minutes Patient has facial pressure. Can feel burning about once a month that lasts for minutes Patient does not have decreased sense of smell. Associated Symptoms: Patient has headaches. Sometimes Patient has throat clearing. Patient has coughing. Patient has dysphonia. Patient does not have nasal bleeding. Medications currently on for sinonasal symptoms: Zyrtec Medications tried in the past for sinonasal symptoms: Flonase (used for months), Antibiotic two different prescriptions (1 month of Augmentin), Trelegy Other Pertinent Medical Conditions: Patient does not have asthma. Patient does not have aspirin sensitivity. Patient has migraines. Not common Patient does not have history of allergy testing. Patient does not have history of sinus surgery. Patient does not have history of nasal fracture. Patient has heartburn. The patient does take therapy for heartburn. Pepcid and PPI The patient has a GI evaluation. Has hiatal hernia last evaluation years ago The patient has imaging of sinuses. When: April 08, 2024. The remainder of a full 10 systems review of systems was espitia negative outside of that stated in the history of present illness. Active Problems: Thyrotoxicosis (CMS/HCC) 03/01/2024 Past Medical History: She has no past medical history on file. Surgical History: ACHILLES TENDON SURGERY Left 10/2016-Dr. Cerna CARPAL TUNNEL RELEASE Bilateral 2011 CHOLECYSTECTOMY 10/2016 COLONOSCOPY 2020 FIRST METATARSAL OSTEOTOMY 09/2022 NECK SURGERY C6 & C7 bracket cadaver bone-2011 SHOULDER SURGERY Right 2012 TUMOR REMOVAL Fatty Tumor removed -2012 Family History: Coronary artery disease Social History: She reports that she has never smoked. She has never used smokeless tobacco. She reports current alcohol use. She reports that she does not use drugs. Allergies: Patient has no known allergies. Current Meds: Current Outpatient Medications: cetirizine (ZyrTEC) 10 mg tablet, Take 1 tablet (10 mg) by mouth once daily., Disp: , Rfl: famotidine (Pepcid) 20 mg tablet, Take 1 tablet (20 mg) by mouth once daily at bedtime., Disp: , Rfl: Protonix 40 mg EC tablet, 1 tablet Orally Every Evening for 30 day(s), Disp: , Rfl: Vitals: Visit Vitals Ht 1.638 m (5' 4.5 ) Wt 84.6 kg (186 lb 8 oz) BMI 31.52 kg/m Smoking Status Never BSA 1.96 m Resp: 12 Physical Exam: CONSTITUTIONAL: Vitals reviewed in nursing chart, well developed, well nourished. RESPIRATION: Breathing comfortably, no stridor. CV: No clubbing/cyanosis/edema in hands. EYES: EOM Intact, sclera normal. NEURO: Alert and oriented times 3, Cranial nerves 2-12 intact and symmetric bilaterally. HEAD AND FACE: Skin with no masses or lesions, sinuses nontender to palpation. SALIVARY GLANDS: Parotid and submandibular glands normal bilaterally. EARS: Normal external ears, external auditory canals, and TMs to otoscopy, normal hearing to whispered voice. NOSE: External nose midline, anterior rhinoscopy is normal with limited visualization to the anterior aspect of the interior turbinates (see nasal endoscopy). ORAL CAVITY/OROPHARYNX/LIPS: Normal mucous membranes, normal floor of mouth/tongue/OP, no masses or lesions are noted. PHARYNGEAL BUSH AND NASOPHARYNX: No masses noted. NECK/LYMPH: No LAD, no thyroid masses. LARYNX: Could not directly visualize transorally. SINONASAL ENDOSCOPY (CPT 94479): To better evaluate the patient's symptoms, sinonasal endoscopy is indicated. After discussion of risks and benefits, and topical decongestion and anesthesia,an endoscope was used to perform nasal endoscopy on each side. A time out identifying the patient, the procedure, the location of the procedure and any concerns was performed prior to beginning the procedure. Findings: Examination of the right nasal cavity revealed inferior turbinate hypertrophy. There was no evidence of purulence or polyposis at the middle meatus or sphenoethmoid recess. Examination of the left nasal cavity revealed inferior turbinate hypertrophy. There was no evidence of purulence or polyposis at the middle meatus or sphenoethmoid recess. She has a deviated septum to the right. Nasopharynx was normal. Results/Data: I reviewed her notes from Dr. Wilkins. March 08, 2024 she was started on Pepcid in addition to Protonix. She was treated with a 4-week course of Augmentin, prednisone taper, and Flonase. April 12, [address] sinus demonstrating pansinusitis and she was asked to be assessed by me for further discussion of options. I reviewed her last GI note from May 04, 2024. This outlined management of reflux. I personally reviewed her CT sinus that was obtained April 08, 2024. This demonstrated inflammatory changes within a number of sinuses. Provider Impressions: 1. Chronic sinusitis 2. Postnasal drainage 3. Facial pain and pressure, headaches 4. Throat clearing, coughing, dysphonia 5. Reflux on PPI and H2 shlomo 6. Deviated septum; inferior turbinate hypertrophy Discussion: Gissell Fisher and I discussed her current exam and symptoms. We reviewed her CT sinus that demonstrated inflammatory changes within a number of sinuses. Her most pressing issue today was cough and we discussed some challenges resolving this exclusively through endoscopic sinus surgery. The biggest risk that she would have undergoing endoscopic sinus surgery is that there is no guarantee that her cough will resolve as there can be separate drivers of cough as a primary lung issue and not necessary completely driven by postnasal drainage. We discussed we will be involved in endonasal surgery as well as septoplasty. The sinus surgery itself was discussed at length. The risks, benefits, and alternatives were explained in detail which include but is not limited to: persistence of symptoms, pain, bleeding, smell loss or alteration, infection, need for nasal packing, double vision, vision loss, CSF leak requiring other procedures to repair, numbness of teeth/and or face, need for revision surgery, and unexpected risks. We discussed septoplasty itself including the risks, benefits and alternatives including but not limited to the following: Numbness of teeth/and or face, alteration in sense of smell or taste, need for further surgery, inability to correct nasal obstruction, bleeding, pain, infection, anesthetic risk, septal perforation and unexpected complications. She has a number of additional options. She could certainly be evaluated locally by pulmonary or through and undergo pulmonary function testing. This would be the most definitive way to determine if she has undiagnosed asthma or other reactive airway disease. She had some benefit with the addition of Pepcid to a proton pump inhibitor so she also could revisit with GI to determine if another upper GI scope would be indicated or potentially alternative therapy for reflux. She gets intermittently hoarse but this predated her significant cough and it comes and goes. I am happy to coordinate an assessment with one of my voice partners to evaluate this issue significantly. On attempted visualization of her voicebox today she had some sensitivity with traversing the nasopharynx and this was ultimately not performed. It would be very unlikely there would be a concerning mass lesion as this issue completely resolves and then recurs. If she undergoes workup for a primary lung issue and this is found to be normal I think undergoing endoscopic sinus surgery would make a lot of sense as, based on her CT, she certainly has significant ongoing inflammation. I provided her with the direct contact information for my receptionist secretary and I am happy to set up a virtual visit or, if she desires, coordinate surgical intervention. All questions were answered. Between [id number] contact, review of the medical record, and documentation I spent greater than 60 minutes on this evaluation during the day of service. Signature: Rene Oseguera MD documented in this encounter [facility] Work Phone: 03-10-2023 Note PROCEDURE: XR FOOT L T [...] authenticated by: BUZZ ROCA Date: 2023-03-10 15:46 [facility] 12-23-2022 Note PROCEDURE: XR FOOT L T [...] authenticated by: AMADOU SCRUGGS Date: 2022-12-23 10:52 [facility] 12-02-2022 Note PROCEDURE: XR FOOT L T [...] by: AMADOU SCRUGGS Date: 2022-12-02 13:46 [facility] 11-14-2022 Note PROCEDURE: XR FOOT L T [...] authenticated by: AMADOU SCRUGGS Date: 2022-11-13 22:19 [facility] 10-20-2022 Note PROCEDURE: XR FOOT L T [...] Repair of second toe. Electronically authenticated by: AAMDOU SCRUGGS Date: 2022-10-20 20:02 [facility] 10-20-2022 Note PROCEDURE: XR FOOT L T [...] authenticated by: AMADOU SCRUGGS Date: 2022-10-20 16:31 [facility] 06-26-2022 Note PROCEDURE: XR ANKLE RT MIN [...] by: AMADOU SCRUGGS Date: 2022-06-26 06:40 [facility] 06-26-2022 Note PROCEDURE: XR ANKLE RT MIN [...] authenticated by: AMADOU SCRUGGS Date: 2022-06-26 06:40 [facility] 03-26-2022 Note PROCEDURE: XR FOOT R T [...] authenticated by: AMADOU SCRUGGS Date: 2022-03-26 10:08 [facility] Evaluation + Plan note No data available for this section [facility] Evaluation note Diagnosis Chronic maxillary sinusitis- Primary Deviated nasal septum Chronic cough Cough Chronic frontal sinusitis documented in this encounter [facility] Work Phone: Hospital Discharge instructions No data available for this section [facility] No data available for this section [facility] Summary Purpose Family History No Family History Records FoundNo Family History Records Found No data available for this section No Family History Records FoundNo Family History Records FoundNo Family History Records Found Advance Directives No Advanced Directives Records FoundNo Advanced Directives Records FoundNo Advanced Directives Records FoundNo Advanced Directives Records FoundNo Advanced Directives Records Found Additional Source Comments INFORMATION SOURCE (unrecogn ized section and content) DATE CREATED AUTHOR 05/18/2018 [facility] DATE CREATED AUTHOR AUTHOR'S ORGANIZ ATION 03/15/2023 [facility] DATE CREATED AUTHOR AUTHOR'S ORGANIZ ATION 04/11/2024 [facility] DATE CREATED AUTHOR AUTHOR'S ORGANIZ ATION 04/15/2024 [facility] EPIC DATE CREATED AUTHOR AUTHOR'S ORGANIZ ATION 05/22/2024 [facility] Amb[facility] Patient Care team informatio n (unrecognized section and content) Personnel Name: David Albrecht MD Address: Address: [address] [place] [address] Reason for Visit (unrecogniz ed section and content) Reason Comments New Patient Visit FOR RECORDS PERTAINING TO PATIENTS WHO ARE [...] BE BASED ON THE PRIMARY CLINICAL RECORDS. [facility], [facility]. provides no warranty or guarantee of the accuracy or completeness of information in this document.
== END 2025-07-11 16:45 | disposition home or self-care (01) ==
PROVIDERS: PCP Family Medicine; Visit Provider Family Medicine
DX: M75.41 Impingement syndrome of right shoulder (principal)
CPT/HCPCS: 73030

== ENCOUNTER 2025-09-13 13:14 | Outpatient (OUT) | payer OTHER, SELFPAY ==
--- OUTSIDE RECORDS SUMMARY | 2025-09-13 13:19 | XMS_ITS | Clinical Summary ---
Author Organization [facility] Address [address] [place] [place] [address] Care Team Providers Care Brine Purifier Name Role Phone Danish Albrecht MD Primary Care Provider [phone] Allergies No known active allergies Medications MedicationSigDispense QuantityRefillsLast FilledStart DateEnd DateStatus cetirizine (ZyrTEC) 10 MG tablet Take 10 mg by mouth DailyActive pantoprazole (ProtoNix) 40 MG EC tablet Take 40 mg by mouth in the morning. Take before meals. Do not crush, chew, or split..Active phentermine 37.5 MG capsule Take 37.5 mg by mouth in the morning. Take before meals.Active fluticasone (Flonase) 50 MCG/ACT nasal spray Indications:Chronic pansinusitisAdminister 2 sprays into each nostril Daily Shake gently. Before first use, prime pump. After use, clean tip and replace cap. 16 g 11003/08/2024ctive famotidine (Pepcid) 20 MG tablet Indications:LPRD (laryngopharyngeal reflux disease)take 1 tablet by mouth at bedtime 90 tablet 05/30/2024ctive Active Problems ProblemNoted DateDiagnosed WguqAxajxcfyw84/16/2024Family history of malignant neoplasm of colon04/07/2024Undifferentiated connective tissue yrfwbaq7904/07/2024 LPRD (laryngopharyngeal reflux disease)03/08/2024hronic kicypixcgwrz08/16/2024 Snelnsbtzhavgw23/09/2024eripheral tddizvs33/09/2024Other diseases of vocal cords03/01/2024rthritis of first metatarsophalangeal (MTP) joint of left foot 03/01/2024Osteophyte of left foot03/01/2024ervicocranial jhmwimde83/09/2024 Trigger uttjiz2103/01/2024Shortness, tendon, Achilles acquired, left03/01/2024 Other enthesopathy of right foot and ankle03/01/20248431Rzsoskhwbvvr46/09/2024 Vylmlns5603/01/2024hest pain, rlrludauuzi80/09/2024Gastroesophageal reflux cpeybzj3903/01/2024ervical fnlcfmpsjgxda41/09/2024arpal tunnel syndrome 03/01/20241219Xvddymqtwb74/09/2024Foot pain03/01/20242807Sfqcqzzvrm25/09/2024llergic zokzogrp67/09/2024cute itdtgzgtxk15/09/2024Irritable bowel jishlcgz13/09/2024 Iqgdpfbx54/09/2024rthritis pain03/01/2024Spondylosis, yerdbkzx12/09/2024 Connective tissue kzybebk3203/01/2024Multiple iexfehc2803/01/2024Intervertebral disc disorder with radiculopathy of lumbosacral wucfjp5503/01/2024Fibrocystic disease of pqrrjg9703/01/2024ervical disc disorder with pqcgbhgsxguvg55/09/2024Hiatal erhasc6703/01/2024H/O: rymrfykhu02/09/2024hronic cough03/01/2024 Family History Medical HistoryRelationNameCommentsHeart diseaseFatherCancerMaternal Grandfather Heart diseaseMaternal GrandfatherColon cancerMotherCancerPaternal Grandfather Heart diseasePaternal GrandfatherChronic Lung DiseaseSisterRelationNameStatus CommentsFatherDeceasedMaternal GrandfatherMotherDeceasedPaternal Grandfather SisterAlivex3 Social History Tobacco UseTypesPacks/DayYears UsedDateSmoking Tobacco: NeverSmokeless Tobacco: Never Tobacco Cessation:Counseling Given: Not Answered Alcohol UseStandard Drinks/WeekCommentsYes0 (1 standard drink = 0.6 oz pure alcohol)SociallyCommentsUnknownSex and Gender InformationValueDate RecordedSex Assigned at IbamvJhsleb11/28/2024 1:14 PM EDTLegal SexFemale 02/04/2023 6:41 PM EDTGender DkqvazubDkrnuk55/28/2024 1:14 PM EDTSexual OrientationNot on file Last Filed Vital Signs Vital SignReadingTime TakenCommentsBlood Xdppxlcc712/8305 3:35 PM EDT Pulse--Temperature--Respiratory Rate--Oxygen Saturation--Inhaled Oxygen Concentration--Xhdxqs14.5 kg (193 lb)04/12/2024 3:35 PM CJTSwqtnp918.8 cm (5' 4.5 )04/12/2024 3:35 PM EDTBody Mass Index32.62004/12/2024 3:35 PM EDT Plan of Treatment Not on file Insurance Care Teams Team MemberRelationshipSpecialtyStart DateEnd Danish Albrecht MD PCP - GeneralFamily Medicine02/18/24
--- OUTSIDE RECORDS SUMMARY | 2025-09-13 13:19 | XMS_ITS | Clinical Summary ---
Author Organization [facility] Address [address] [place], [place] [id number] Care Team Providers Care Case Fitter Name Role Phone Danish Albrecht MD Primary Care Provider [phone] Medications MedicationSigDispense QuantityRefillsLast FilledStart DateEnd DateStatus Milnacipran (SAVELLA) 100 mg tab Take by mouth twice daily.Active gabapentin 600 mg Tb24 Take by mouth. Pt states she three 600mg once daily.Active simvastatin (ZOCOR) 20 mg tablet Take 20 mg by mouth daily at bedtime.Active Alendronate-Vitamin D3 70-2,800 mg-unit tab Take by mouth once each week.Active Social History Tobacco UseTypesPacks/DayYears UsedDateSmoking Tobacco: NeverAlcohol UseStandard Drinks/WeekCommentsNot Asked0 (1 standard drink = 0.6 oz pure alcohol) CommentsUnknownSex and Gender InformationValueDate RecordedSex Assigned at Not on fileLegal PitUhnroq47/17/2015 7:46 AM ESTGender IdentityNot on fileSexual OrientationNot on file Last Filed Vital Signs Vital SignReadingTime TakenCommentsBlood Yvlzqakl448/6701 2:10 PM EST Babnm9677 2:10 PM RXKRdnerlxajgi36.6 ??C (99.6 ??F)12/06/2015 2:10 PM ESTRespiratory Rate--Oxygen Saturation--Inhaled Oxygen Concentration--Lbbmjy90.7 kg (199 lb 14.4 oz)12/06/2015 2:10 PM AAXVulzsf362.5 cm (5' 5.16 )12/06/2015 2:10 PM ESTBody Mass Index33.101 2:10 PM EST Plan of Treatment Health MaintenanceDue DateLast DoneCommentsAnxiety Tcfobmpnf53/22/1982Depression Biuitdjlx97/22/1982HIV Lbxxlfeia85/22/1982Hepatitis C Dqxrblsga24/22/1982 DTaP,Tdap,Td Vaccine (1 - Tdap)1983Cervical Cancer Iokdxhmcv56/22/1985 Mammogram Jhidardvl46/22/2004CT Oqambxxhpfzv66/22/2009Cologuard (FIT-DNA) 08/14/20090292Pdnxfyaznmd12/22/2009Colorectal Cancer Vwkcgmdmw36/22/2009Diabetes Rnydcqcrr52/22/2009Fecal Occult Blood2009Lipid Yzfxzudub54/22/2009 Nlmltgvwocikj06/22/2009Pneumococcal Vaccine: 50+ (1 of 1 - PCV)2014 Shingrix Vaccine (1 of 2)2014Covid-19 Vaccine (1 - 2024- season) 2025Influenza Vaccine (#1)2025RSV Vaccine (1 - 1-dose 75+ series) 2039 Insurance Care Teams Team MemberRelationshipSpecialtyStart DateEnd Date Danish Albrecht MD PCP - GeneralFamily Hqdyfuyc34/17/15
--- OUTSIDE RECORDS SUMMARY | 2025-09-13 13:19 | XMS_ITS | Clinical Summary ---
Author Organization [facility] [employer] [facility] Address [id number] [place] [address] Care Team Providers Care Lumber Chain Offbearer Name Role Phone Unavailable Primary Care Provider Unavailabl e Social History Tobacco UseTypesPacks/DayYears UsedDateSmoking Tobacco: Never AssessedChildcare AnswerDate IruoftmtIfmrdapapQtvynav59/12/2019EmploymentAnswerDate Recorded BvhcafozpyPicgjlu04/12/2019CommentsUnknownSex and Gender Information ValueDate RecordedSex Assigned at BirthNot on fileLegal ZlsLxnhet11/06/2015 11:50 AM EDTGender IdentityNot on fileSexual OrientationNot on file Plan of Treatment Not on file Medical Devices Not on file
--- OUTSIDE RECORDS SUMMARY | 2025-09-13 13:19 | XMS_ITS | Clinical Summary ---
Author Organization [facility] Address [address] 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 Name Role Phone Unavailable Primary Care Provider Unavailabl e Allergies No known active allergies Medications MedicationSigDispense QuantityRefillsLast FilledStart DateEnd DateStatus famotidine (Pepcid) 20 mg tablet Take 1 tablet (20 mg) by mouth once daily at bedtime.Active cetirizine (ZyrTEC) 10 mg tablet Take 1 tablet (10 mg) by mouth once daily.Active Protonix 40 mg EC tablet 1 tablet Orally Every Evening for 30 day(s)4Active Active Problems No known active problems Social History Tobacco UseTypesPacks/DayYears UsedDateSmoking Tobacco: NeverSmokeless Tobacco: Never Tobacco Cessation:Counseling Given: Not Answered Alcohol UseStandard Drinks/WeekCommentsYes0 (1 standard drink = 0.6 oz pure alcohol)CommentsUnknownSex and Gender InformationValueDate RecordedSex Assigned at BirthNot on fileLegal VsnZesabq11/23/2024 10:38 AM EDTGender IdentityNot on fileSexual OrientationNot on file Last Filed Vital Signs Vital SignReadingTime TakenCommentsBlood Pressure--Pulse--Temperature-- Respiratory Rate--Oxygen Saturation--Inhaled Oxygen Concentration--Ngsswz83.6 kg (186 lb 8 oz)05/21/2024 8:23 AM WPIWjbvfa869.8 cm (5' 4.5 )05/21/2024 8:23 AM EDTBody Mass Index31.52005/21/2024 8:23 AM EDT Plan of Treatment Health MaintenanceDue DateLast DoneCommentsCT Yiswtwkmgmao1964FIT-DNA (Cologuard)1964FIT1964HIV Vvhzxtppy1964Lipid Panel1964 Aqkkgkynoecha1964Yearly Adult Gbghzugm1964MMR Vaccines (1 of 1 - Standard series)1965Hepatitis C Sjjtvkqac87/22/1982Cervical Cancer Jckbufobv64/22/1985HPV/Iwnsha6208/14/1985Pap Smear1985DTaP/Tdap/Td Vaccines (1 - Tdap)08/14/19868386Hwlsybupj88/22/2004Pneumococcal Vaccine (1 of 1 - PCV) 2014Zoster Vaccines (1 of 2)2014Influenza Vaccine (#1)2025 09/13/2021, 08/22/2021, 10/04/2020, Additional history existsCOVID-19 Vaccine ( season)512/, 03/02/2021, 02/09/2021olonoscopy /08/2021, 03/14/2013Colorectal Cancer Viwouaxmu70/10/2031RSV High Risk: (Elderly (60+) or Population) (1 - 1-dose 75+ series)2039 HIB VaccinesAged OutNo longer eligible based on patient's age to complete this topicHPV VaccinesAged OutNo longer eligible based on patient's age to complete this topicHepatitis A VaccinesAged OutNo longer eligible based on patient's age to complete this topicHepatitis B VaccinesAged OutNo longer eligible based on patient's age to complete this topicIPV VaccinesAged OutNo longer eligible based on patient's age to complete this topicMeningococcal VaccineAged OutNo longer eligible based on patient's age to complete this topicRotavirus VaccinesAged Out No longer eligible based on patient's age to complete [place] [phone]
--- NOTE | 2025-09-13 13:26 | MR_ITS ---
The [address] [address] Patient Name: JOSÉ MIGUEL JOHNSON MRN: [id number] date: 1965 Sex: F Assigned Patient Location: MRI Current Patient Location: MRI Accession/Order Number: [id number] Exam Date: 09/13/2025 14:14 Report Date: 09/13/2025 19:26 At the request of: DAVID HERMOSILLO MD Procedure: MR shoulder RT wo con MR RIGHT SHOULDER CLINICAL INFORMATION: Shoulder pain.. COMPARISON: 07/11/2025. PROCEDURE: Axial, oblique coronal, and oblique sagittal long TR images of the shoulder were obtained. FINDINGS: ROTATOR CUFF AND ASSOCIATED STRUCTURES Biceps Tendon: There is increased signal intensity in the proximal long head of biceps tendon with fluid along the tendon sheath suggesting tenosynovitis. The tendon is grossly intact. Rotator cuff: There is a perforating full-thickness tear along the insertion of the supraspinatus tendon anteriorly. The infraspinatus, teres minor, and subscapularis are grossly intact. Musculature: Within normal limits. Bursa: There is a small amount of fluid in the subacromial bursa. OSSEOUS STRUCTURES Acromioclavicular joint: There are mild degenerative changes of the acromioclavicular joint. A type 2 acromion configuration is noted. There is no anterior or lateral acromial downsloping. Bones: Subcortical cystic changes noted in the greater tuberosity of the right humeral head. GLENOHUMERAL JOINT Joint: There is a small joint effusion. Cartilage: No focal hyaline cartilage defects are noted. Labrum: The labrum is not optimally evaluated. Other support structures: No capsular or ligamentous abnormality is seen. MR/MR shoulder RT wo con IMPRESSION: 1. There is increased signal intensity in the proximal long head of biceps tendon with fluid along the tendon sheath suggesting tenosynovitis. The tendon is grossly intact. 2. There is a perforating full-thickness tear along the insertion of the supraspinatus tendon anteriorly. 3. Mild hypertrophic changes are noted in the acromioclavicular joint. 4. There is a small joint effusion. Impression dictated by: Jos Bailey M.D. 09/13/2025 7:26 PM Dictation Location: [place] [address] Electronically authenticated by: [id number] Y Date: 09/13/2025 19:26
--- OUTSIDE RECORDS SUMMARY | 2025-09-13 13:31 | XMS_ITS | CCD ---
Author Organization [facility] Care Team Providers Care Producer Name Role Phone PHYSICIAN, DEFAULT Unavailable Unavailable [...] Amrita Wilkins Admitting Unavailable TimmisAmrita Attending Unavailable StefmisAmrita H Referring Unavailable TIMMIS, AMRITA H Attending Unavailable TIMMIS, AMRITA H Attending Unavailable RENE OSEGUERA Attending Unavailable Unavailable Primary Care Provider Unavailabl e Medications Current Medications MedicationDrug Class(es)DatesSig (Normalized)Sig (Original)cetirizine hydrochloride 10 mg oral tablet (1 source)Histamine-1 Receptor Antagonisttake 1 tablet by mouth once daily cetirizine (ZyrTEC) 10 mg tablet Take 1 tablet (10 mg) by mouth once daily. Activefamotidine 20 mg oral tablet (1 source)Histamine-2 Receptor Antagonisttake 1 tablet by mouth once daily at bedtimefamotidine (Pepcid) 20 mg tablet Take 1 tablet (20 mg) by mouth once daily at bedtime. Activemeloxicam 15 mg oral tablet (1 source)Nonsteroidal Anti-inflammatory DrugStart: 44-09-1139epyf 1 mg by mouth once dailyMobic 15 mg Tab mg tab(s), Oral, Daily, Refills(s) 0 Start Date: 08/23/21 Status: Orderedpantoprazole 40 mg delayed release oral tablet (1 source)Proton Pump InhibitorStart: 71-21-1773numf 1 tablet by mouth once daily in the eveningProtonix 40 mg EC tablet 1 tablet Orally Every Evening for 30 day(s) 01/29/2024 ActivetiZANidine 4 mg oral tablet (1 source)Central alpha-2 Adrenergic AgonistStart: 35-60-0163jnwr 1 mg by mouth every eight hourstiZANidine 4 mg Tab mg tab(s), Oral, q8hr, Refills(s) 0 Start Date: 08/23/21 Status: Ordered Problems Active Problems Problem ClassificationProblemDateDocumented DateEpisodic/ChronicAbdominal hernia (1 source)Hiatal abksvk97-19-3662PqwidfikTuxoypgq foot deformities (6 sources)Hallux rigidus, left foot; Translations: [Other hammer toe(s) (acquired), left foot]Onset: 01-43-8682GbkecbdAiirxsszds disorders (2 sources)Gastroesophageal reflux disease; Translations: [Gastroesophageal reflux disease without esophagitis]42-73-2638ElfgljnPpihbcqvjkfj breast conditions (1 source)Fibrocystic disease of ebqxiv41-59-0011IsytcfzUfteabopxgwrfm (5 sources)Primary osteoarthritis, left ankle and foot; Translations: [Arthritis]Onset: 18-91-7136LiguwnoTzmii and unspecified benign neoplasm (1 source)Lipoma (clinical)59-47-6887HvpzvcpdUobcy bone disease and musculoskeletal deformities (1 source)Nlkuhgctdp36-98-8584EdmbxgvlTjqbc connective tissue disease (1 source)Hobgvzrxsmhl82-08-5635QkevrmmpOlgjx gastrointestinal disorders (1 source)Irritable bowel -13-9413KmmdvhwCiyve nervous system disorders (1 source)Carpal tunnel gknetjpi97-75-1928VqvitoaExvjr nutritional; endocrine; and metabolic disorders (1 source)Body mass index 30+ - kqmqfed81-33-6285ZdjweygHkqoa screening for suspected conditions (not mental disorders or infectious disease) (1 source)Encounter for screening mammogram for malignant neoplasm of breast; Translations: [ENC SCR MAMMO MALIG NEOPLASM BREAST]Onset: 56-53-4632Felofdvq Other upper respiratory infections (2 sources)Chronic maxillary sinusitis; Translations: [Chronic maxillary sinusitis]15-88-4415UbooemlMxfjwisc codes; unclassified (4 sources)Obstructive sleep apnea (adult) (pediatric); Translations: [OBSTRUCTIVE SLEEP APNEA]Onset: 33-74-8892GvzjwaiWpsiyvja codes; unclassified (1 source)Family history of malignant neoplasm of breast; Translations: [FAMILY HX MALIG NEOPLASM OF BREAST]Onset: 47-50-8956FuacnhkiSxvirkgy codes; unclassified (1 source)Family history of malignant neoplasm of digestive organs; Translations: [FAM HX MALIG NEOPLASM DIGESTIV ORGN]Onset: 89-14-8581Bvcadycv Residual codes; unclassified (1 source)Family history of cancer of gfbzu46-30-1926DuknyjxuWwggilwxxhy; intervertebral disc disorders; other back problems (1 source)Degeneration of cervical intervertebral umzs67-71-3158Kdilqsk Spondylosis; intervertebral disc disorders; other back problems (1 source)Chronic low back lvdu29-49-4393ZzvynanxIhvewmwu lupus erythematosus and connective tissue disorders (1 source)Undifferentiated connective tissue aklgwaa10-67-6328Eondjjt Unclassified (4 sources)CONTACT W/AND (SUSP) EXPOS COVID-19; Translations: [CONTACT W/AND (SUSP) EXPOS COVID-19]Onset: 88-54-7085Riddtqyxhvtt (1 source)COUGH, UNSPECIFIED; Translations: [COUGH, UNSPECIFIED]Onset: 05-61-2377Gyusqxtqzyxg (2 sources)New Patient Visit; Translations: [New Patient Visit]Onset: 05-21-2024 Past or Other Problems Problem ClassificationProblemDateDocumented DateEpisodic/ChronicConditions associated with dizziness or vertigo (4 sources)Dizziness and giddiness; Translations: [DIZZINESS AND GIDDINESS] Onset: 57-11-0184MmnnsdfaQjelx connective tissue disease (1 source)Arthrodesis status; Translations: [ARTHRODESIS STATUS]Onset: 92-64-7474CupatlrtCiamh connective tissue disease (4 sources)Other specified soft tissue disorders; Translations: [OTHER SPEC SOFT TISSUE DISORDERS]Onset: 18-19-8182OsgacmweHaaux connective tissue disease (5 sources)Pain in right foot; Translations: [PAIN IN RIGHT FOOT]Onset: 34-48-0386KnzuzwyuCbwqn lower respiratory disease (1 source)Chronic cough; Translations: [Chronic cough]62-84-3411IjyjiujnEvhbf non-traumatic joint disorders (1 source)Other specified joint disorders, left ankle and foot; Translations: [OTHER SPEC JOINT D/O LT ANKLE FOOT]Onset: 47-73-6181HrqaeycaQvusc non-traumatic joint disorders (4 sources)Pain in right ankle and joints of right foot; Translations: [PAIN IN RIGHT ANKLE]Onset: 86-77-2126TukbqemnMnevf upper respiratory disease (1 source)Nasal congestion; Translations: [NASAL CONGESTION]Onset: 11-30-2022 EpisodicOther upper respiratory disease (1 source)Deviated nasal septum; Translations: [Deviated nasal septum]05-21-2024 EpisodicUnclassified (1 source)CONTACT W/AND (SUSP) EXPOS COVID-19; Translations: [CONTACT W/AND (SUSP) EXPOS COVID-19]Onset: 11-28-2022 Results Test NameValueInterpretationReference RangeFacilityCT Maxillofacial w/o Contrast on 51-25-9579EQ Maxillofacial w/o ContrastExam Date/Time: 04/05/2024 16:58 EDT Reason for Exam: [...] Porfirio Williamson MD Transcribed by: ROSETTA Technologist: RRBNSelect Medical Specialty Hospital - CantonConsent for Treatmenton 84-13-5947Gaqiazs for Treatment [id number]#1.00TIFMercy Health Defiance HospitalPhysician Orderon 67-58-4301Fdzirebgx Order [id number]#1.00TIFMercy Health Defiance HospitalINSULINon 65-29-0796Deuhnme23.8 uIU/mLNormal2.6-24.9[facility] Comment on above:Performed By: #### INSULIN #### [facility] [address] [place] [address] Dr. Hunter Palmer AUTO DIFFon 06-27-8420KIBF #0.0 103/ulNormal0.0-0.1[facility] HospitalComment on above:Performed By: #### CBC #### [facility] [address] [place] [address] Dr. Hunter Mehtasophils/100 WBC (Bld)0.3 %Normal0.2-2.0[facility] Comment on above:Performed By: #### CBC #### [facility] [address] [place] [address] Dr. Hunter Berumen #0.1 103/ulNormal0.0-0.7The [facility] HospitalComment on above: Performed By: #### CBC #### [facility] [address] [place] [address] Dr. Hunter Knightosinophils/100 WBC (Bld)1.5 %Normal0.9-7.0[facility] Comment on above:Performed By: #### CBC #### [facility] [address] [place] [address] Dr. Hunter Knightrythrocyte distribution width (RBC) [Ratio]12.3 %Ndfype87.0-15.0 The [facility] HospitalComment on above:Performed By: #### CBC #### [facility] [address] [place] [address] Dr. Hunter WeaverHematocrit (Bld) [Volume fraction]40.4 %Stxbyb54.0-48.0The [facility] HospitalComment on above:Performed By: #### CBC #### [facility] [address] [place] [address] Dr. Hunter WeaverHemoglobin (Bld) [Mass/Vol]13.5 g/iPZberqm00.0-16.0The [facility] HospitalComment on above:Performed By: #### CBC #### [facility] [address] [place] [address] Dr. Hunter Boyle #0.06 10e3/ulCritically high0.00-0.03[facility] Comment on above:Performed By: #### CBC #### [facility] [address] [place] [address] Dr. Hunter Boyle %0.7 %Critically high0.0-0.5The [facility] HospitalComment on above:Performed By: #### CBC #### [facility] [address] [place] [address] Dr. Hunter LastH #3.2 103/ulNormal1.2-3.8The [facility] HospitalComment on above:Performed By: #### CBC #### [facility] [address] [place] [address] Dr. Hunter Gilmoremphocytes/100 WBC (Bld)34.5 %Nocyxq99.5-60.0The [facility] HospitalComment on above:Performed By: #### CBC #### [facility] [address] [place] [address] Dr. Hunter Burnette DIFF REQNONormalThe Peoples HospitalComment on above: Performed By: #### CBC #### [facility] [address] [place] [address] Dr. Hunter Freeman (RBC) [Entitic mass]31.3 fpNoykxh44.7-34.0The [facility] HospitalComment on above:Performed By: #### CBC #### [facility] [address] [place] [address] Dr. Hunter Freeman (RBC) [Mass/Vol]33.4 g/uIHjcssp11.9-35.2The [facility] HospitalComment on above:Performed By: #### CBC #### [facility] [address] [place] [address] Dr. Hunter Freeman (RBC) [Entitic vol]93.5 jBCvfpiw43.0-99.0The [facility] HospitalComment on above:Performed By: #### CBC #### [facility] [address] [place] [address] Dr. Hunter Whittaker #0.6 103/ulNormal0.3-0.8The [facility] HospitalComment on above:Performed By: #### CBC #### [facility] [address] [place] [address] Dr. Hunter Wakefieldocytes/100 WBC (Bld)6.4 %Normal1.7-12.0[facility] Comment on above:Performed By: #### CBC #### [facility] [address] [place] [address] Dr. Hunter Mchugh #5.2 103/ulNormal1.4-6.5The [facility] HospitalComment on above:Performed By: #### CBC #### [facility] [address] [place] [address] Dr. Hunter Singletaryutrophils/100 WBC (Bld)56.6 %Sznjvb51.0-75.0The [facility] HospitalComment on above:Performed By: #### CBC #### [facility] [address] [address] [address] Hunter Hooks mean volume (Bld) [Entitic vol]9.8 fLNormal9.5-13.5The [facility] HospitalComcorewell health big [facility] on above:Performed By: #### CBC #### [facility] [address] [address] [address] Hunter WeaverPLT285 103/xnBeiysc421-019Htx [facility] on above: Performed By: #### CBC #### [facility] [address] [address] [address] Hunter WeaverRBC4.32 106/ulNormal4.20-5.40The [facility] on above:Performed By: #### CBC #### [facility] [address] [address] [address] Hunter WeaverWBC9.2 103/ulNormal4.0-11.0The [facility] on above: Performed By: #### CBC #### [facility] [address] [address] [address] Hunter WeaverFRLEROY THYROXINE INDEX T7on 03-23-5574QFJ8.34Quqmvr3.30-4.50The [facility] on above:Performed By: #### CMP, LIPID, T7, TSH ####[facility] [address] [address]Dr. Hunter WeaverT3U39.0 %Bgffpt65.0-39.0The [facility] on above: Performed By: #### CMP, LIPID, T7, TSH ####[facility] [address] [id number]. Hunter WeaverT4 [Mass/Vol]10.20 ug/dLNormal 4.80-13.90The [facility] on above:Performed By: #### CMP, LIPID, T7, TSH ####[facility] [address] [address]Dr. Hunter WeaverGLYCOHEMOGLOBIN A1Con 04-86-2494SMU RECOMMENDATIONSEE BELOW NormalPike Community Hospital on above:Result Comment: ADA RECOMMENDED LIMIT 4.0 - 6.0 ADA THERAPEUTIC TARGET < 7.0 ACTION SUGGESTED > 7.0Performed By: #### A1C ####[facility] [address] [address]Dr.Hunter WeaverGlucose [Mass/Vol]111 mg/dLNoOhioHealth Riverside Methodist Hospital Comment on above:Performed By: #### A1C ####[facility] [address] [address]DrRashmi WeaverHbA1c (Bld) [Mass fraction]5.5 %Normal4.5-6.2The [facility] HospitalComment on above:Performed By: #### A1C ####[facility] [address] [address]Dr. Hunter WeaverIRONon 77-76-2703Qdxj [Mass/Vol]165.0 ug/fGClvcgv80.0-170.0The [facility] HospitalComment on above:Performed By: #### IRON #### [facility] [address] [address] [address] Hunter WeaverLIPID PROFILEon 41-05-8474PNQG-HDL RATIO NORMSEE BELOWRegional Medical CenterComment on above:Result Comment: 3.3 - 4.4 LOW RISK 4.4 - 7.1 AVERAGE RISK 7.1 - 11.0 MODERATE RISK >11.0 HIGH RISKPerformed By: #### CMP, LIPID, T7, TSH ####[facility] [address] [address]Dr. Hunter WeaverCholesterol [Mass/Vol]192 mg/dLNormal<=200The [facility] HospitalComment on above:Performed By: #### CMP, LIPID, T7, TSH ####[facility] [address] [address]DrArt Weaver Cholesterol in HDL [Mass/Vol]58 mg/eKIiypyv58-72Vfc [facility] HospitalComment on above:Performed By: #### CMP, LIPID, T7, TSH ####[facility] [address] [id number]. Yilan ChangCholesterol in LDL [Mass/Vol]109.6 mg/dLRegional Medical CenterComment on above:Performed By: #### CMP, LIPID, T7, TSH ####[facility] [address] [id number]. Yilan ChangCholesterol.total/Cholesterol in HDL [Mass ratio]3.3 {ratio}NormalCleveland Clinic Marymount HospitalComcorewell health big rapids hospital on above:Performed By: #### CMP, LIPID, T7, TSH ####[facility] [address] [id number]. Yilan ChangHDL NORMAL> or = 60 mg/dl - LOW CARDIOVASCULAR RISK <40 mg/dl - HIGH CARDIOVASCULAR RISKRegional Medical CenterComcorewell health big rapids hospital on above:Performed By: #### CMP, LIPID, T7, TSH ####[facility] [address] [address]Dr. Yilan ChangLDL CALC NORMALSEE BELOWNoOhioHealth Riverside Methodist HospitalComment on above:Result Comment: <100 mg/dl OPTIMAL 100 - 129 mg/dl NEAR OR ABOVE OPTIMAL 130 - 159 mg/dl BORDERLINE HIGH 160 - 189 mg/dl HIGH >190 mg/dl VERY HIGHPerformed By: #### CMP, LIPID, T7, TSH ####[facility] [address] [id number]. Yilan ChangTriglyceride [Mass/Vol]122 mg/dLNormal<=150[facility] HospitalComcorewell health big rap[facility] hospital on above:Performed By: #### CMP, LIPID, T7, TSH ####[facility] [address] [id number]. Yilan ChangVLDL CALC24.4 mg/dLRegional Medical CenterComment on above:Performed By: #### CMP, LIPID, T7, TSH ####[facility] [address] [id number]. Yilan ChangMG MAMM SCREEN 3D KHADAR CADon 02-23-2023 MG MAMM SCREEN 3D KHADAR CADPatient: DIANNELaurenGISSELL Exam Date: 02/23/2023 : 1965 Gender:F Ordering : DR DAVID ALBRECHT . Admission #: [id number] Family : Order #: [id number] CLICK HERE TO VIEW EXAM RADIOLOGY REPORT [...] colon cancer at age 64. LOCATION: [facility] BREAST COMPOSITION: Heterogeneously dense,which may obscure [...] by: Amadou Scruggs M.D. on 02/23/2023 at 11:02NoOhioHealth Riverside Methodist HospitalPROF 14(COMP METB)on 76-37-3239Zpwkhgl [Mass/Vol]3.6 g/dLNormal3.4-5.0 The [facility] HospitalComment on above:Performed By: #### CMP, LIPID, T7, TSH ####[facility] [address] [id number] WeaverAlbumin/Globulin [Mass ratio]1.1 {ratio}NormalThe [facility] Comment on above:Performed By: #### CMP, LIPID, T7, TSH ####[facility] [address] [place], [place] [address]Jd. Yilan ChangALP [Catalytic activity/Vol]114 U/JLpzstm48-454Hxm [facility] HospitalComment on above:Performed By: #### CMP, LIPID, T7, TSH ####[facility] [address] [address]Dr. Yilan ChangALT [Catalytic activity/Vol]20 U/L Xmbebn18-86Wrl [facility] HospitalComment on above:Performed By: #### CMP, LIPID, T7, TSH ####[facility] [address] [address]Dr. Yilan ChangAnion gap [Moles/Vol]13.2 mmol/LNormalThe [facility] Comment on above:Performed By: #### CMP, LIPID, T7, TSH ####[facility] [address] [place], [place] [address]Dr. Yilan ChangAST [Catalytic activity/Vol]17 U/QIrpnnu34-05Irq [facility] HospitalComment on above:Performed By: #### CMP, LIPID, T7, TSH ####[facility] [address] [place], [place] [address]Dr. Yilan ChangBilirubin [Mass/Vol]0.5 mg/dLNormal 0.2-1.0The [facility] HospitalComment on above:Performed By: #### CMP, LIPID, T7, TSH ####[facility] [address] [address]Dr. Yilan ChangCalcium [Mass/Vol]8.4 mg/dLCritically low8.5-10.1The [facility] HospitalComment on above:Performed By: #### CMP, LIPID, T7, TSH ####[facility] [address] [address]Dr. Yilan Weaver Chloride [Moles/Vol]105 mmol/QQdwpwi24-016Nsi [facility] HospitalComment on above: Performed By: #### CMP, LIPID, T7, TSH ####[facility] [address] [address]Dr. Yilan ChangCO2 [Moles/Vol]28.7 mmol/LNormal 21.0-32.0The [facility] HospitalComment on above:Performed By: #### CMP, LIPID, T7, TSH ####[facility] [address] [address]Dr. Yilan ChangCreatinine [Mass/Vol]0.65 mg/dLNormal0.55-1.02The [facility] on above:Performed By: #### CMP, LIPID, T7, TSH ####[facility] [address] [place], [place] [address]Dr. Yilan ChangEGFR- AF TRINIDADIAN>60Normal>=60The [facility] on above:Performed By: #### CMP, LIPID, T7, TSH ####[facility] [address] [place], [place] [address]Dr. Yilan ChangEGFR-NON AF TRINIDADIAN>60Normal>=60The [facility] on above:Performed By: #### CMP, LIPID, T7, TSH ####[facility] [address] [place], [place] [address]Dr. Yilan ChangGlobulin (S) [Mass/Vol]3.3 g/dLNormalThe [facility] on above:Performed By: #### CMP, LIPID, T7, TSH ####[facility] [address] [place], [place] [address]Dr. Yilan ChangGlucose [Mass/Vol]122 mg/dLCritically dgtb24-331Tvu [facility] on above: Performed By: #### CMP, LIPID, T7, TSH ####[facility] [address] [place], [place] [address]Dr. Yilan ChangPotassium [Moles/Vol]3.9 mmol/L Normal3.5-5.1The [facility] Healthment on above:Performed By: #### CMP, LIPID, T7, TSH ####[facility] [address] [place], [place] [address]Dr. Yilan ChangProtein [Mass/Vol]6.9 g/dLNormal6.4-8.2The [facility] HospitalComment on above:Performed By: #### CMP, LIPID, T7, TSH ####[facility] [address] [place], [place] [address]Lr. Hunter Weaver Sodium [Moles/Vol]143 mmol/BQtfmnb254-805Xrz [facility] HospitalComment on above: Performed By: #### CMP, LIPID, T7, TSH ####[facility] [address] [place], [place] [address]Gs. Hunter WeaverUrea nitrogen [Mass/Vol]12.0 mg/dLNormal7.0-18.0The [facility] HospitalComment on above:Performed By: #### CMP, LIPID, T7, TSH ####[facility] [address] [place], [place] [address]Qn. Hunter WeaverUrea nitrogen/Creatinine [Mass ratio]18.5 mg/mgNormal The [facility] HospitalComment on above:Performed By: #### CMP, LIPID, T7, TSH ####[facility] [address] [place], [place] [address]Un. Hunter ChinchillaHon 30-70-0312CFS Qnm[IU]/LCritically low0.358-3.740The [facility] HospitalComment on above:Performed By: #### CMP, LIPID, T7, TSH ####[facility] [address] [id number]. Hunter Weaver Covid-19 PCR ([facility])on 52-80-9853TEDI-CoV-2 (COVID-19) RNA CHRIS+probe Ql (Unsp spec)Not detectedNormalNOT DETECTEDThe Mercy Healthment on above:Result Comment: When diagnostic testing is negative, the [...] for this test is supported by the [place] of Health and Human Service's declaration that circumstances exist to justify the emergency use of in vitro diagnostics for the detection and/or diagnosis of the virus that causes COVID-19. This EUA will remain in effect for the duration of the COVID-19 declaration justifying emergency of IVDs, unless it is terminated or revoked by the FDA (after which the test may no longer be used).Performed By: #### CVDTBH ####[facility] [address] [address]Dr. Hunter WeaverINFLSIVANZA A AND B AGon 74-65-7311ZTPKIHUAQLLUQ BELOWChildren's Hospital of Columbusment on above:Result Comment: Negative for Flu A protein angiten. Infection due to Flu A cannot be ruled out. FluA angiten in the sample may be below the detection limit of the test.Performed By: #### INFLUAB #### [facility] [address] [place] [address] Dr. Hunter WeaverINFLUBNEGHSLEROY [facility] on above: Result Comment: Negative for Flu B protein antigen. Infection due to Flu B cannot be ruled out. FluB antigen in the sample may be below the detection limit of the test.Performed By: #### INFLUAB #### [facility] [address] [place] [address] Dr. Hunter Alvarado AGNegativeNormalNEGATIVE SEE COMMENTPike Community Hospital on above:Performed By: #### INFLUAB #### [facility] [address] [place] [address] Dr. Hunter Haas AGNegativeNormalNEGATIVE SEE COMMENTThe [facility] on above:Performed By: #### INFLUAB #### [facility] [address] [place] [address] Dr. Hunter Rivas NECK WO CONon 12-02-1123SZR NECK WO CONEXAMINATION: MRI BRAIN WO CON, MRA NECK WO CON, MRA HEAD WO CON HISTORY: Dizziness and giddiness COMPARISON: None. TECHNIQUE: Multiplanar, multisequence MRI images of the brain were obtained without contrast. MR angiogram of the head and neck were obtained with kvut-gm-hcqamu technique, with maximum intensity projection images. FINDINGS: MRI BRAIN: No restricted diffusion. No foci of abnormal signal. Ventricles and sulci normal in size. No hydrocephalus. There is no midline shift, mass effect, or abnormal extraaxial fluid collections. Pituitary gland is not abnormally enlarged. There is no evidence for a Chiari I malformation. The orbital apices are clear. The flow voids of the [place] of [place] are visualized, implying that the vessels are patent. MRA BRAIN: Flow in all major intracranial arteries without flow limiting stenosis or occlusion. No appreciable intracranial aneurysms or vascular malformations. MRA NECK: The aortic arch and origins of the great vessels are not included in the ipwcc-mw-uylw secondary to noncontrast technique. Carotid bifurcations are [...] Electronically authenticated by: ANDREW PARIKH Date: 2022-11-19 22:12[facility] CenterUS TAISHA DOP LEG LTon 01-37-1588UZ TAISHA DOP LEG LTEXAMINATION: US TAISHA DOP LEG LT HISTORY: Disorder [...] Electronically authenticated by: AMADOU SCRUGGS Date: 2022-10-30 11:58[facility] Medical CenterPOINT OF CARE GLUCOSEon 64-50-5888Umtihtk [Mass/Vol]129 mg/dL Critically dlpn62-080UxpCleveland Clinic Marymount HospitalComment on above:Performed By: #### POCGLUC #### [facility] [address] [address] [address] Yilan ChangGlucose [Mass/Vol]117 mg/dLCritically ixpx67-188McbCleveland Clinic Marymount HospitalComment on above:Performed By: #### POCGLUC #### [facility] [address] [place], [place] [address] Dr. Hunter WeaverCovid-19 PCR ([facility])on 39-04-3708DCPZ-CoV-2 (COVID-19) RNA CHRIS+probe Ql (Unsp spec)Not detectedNormalNOT DETECTEDThe [facility] Comment on above:Result Comment: This test is not yet approved or cleared by the [place] FDA. When there are no FDA-approved or cleared tests available, and other criteria are met, FDA can make tests available under an emergency access mechanism called an Emergency Use Authorization (EUA). The EUA for this test is supported by the [place]aste[place] of Health and Human Service's (HHS's) declaration that circumstances exist to justify the emergency use of in vitro diagnostics for the detection and/or diagnosis of the virus that causes COVID- 19. This EUA will remain in effect (meaning [...] of clinical signs and symptoms consistent with SARS-CoV-2.Performed By: #### CVDTBH #### [facility] [address] [place], [place] [address] Dr. Hunter Weaver Vital Signs Date TimeVital SignValuePerforming AavznbsaqQrcustma31-32-4188 08:23-0400Body .8 cmRene Oseguera MD Work Phone: [place] [facility]-29[facility]24 08:23-0400 Body mass index (BMI) [Ratio]31.52 kg/z4KtwhofuRene Oseguera MD Work Phone: [facility]06-29-2024 08:23-0400 Body avpbdi20.6 kgRene Oseguera MD Work Phone: [facility] Encounters Encounter DateEncounter TypeCare ProviderFacilityStart: 05-21-2024 End: 47-02-0109Kgdmsu consultation new/estab patient 79 Leah Oseguera MD Work Phone: uh [facility] CenterComment on above:Chronic maxillary sinusitis (Primary Dx); Deviated nasal septum; Chronic cough; Chronic frontal sinusitisStart: 05-21-2024 End: 39-34-1388ddenqicwmvDHELGLP D [facility] Start: 04-12-2024 End: 15-78-7087vslhzlesapPFPURF H TIMMISNot AvailableStart: 04-05-2024 End: 14-90-8655edgpglbcglZnaxae H TimmisFacility:FTMCStart: 04-05-2024 End: 57-82-4487Dzaccwp encounter procedureHilary H Timmis [facility] Start: 03-08-2024 End: 36-47-0712lqktayxftfVIJTNK H TIMMISNot AvailableStart: 03-10-2023 End: 43-68-7215ywgrmqvhxgVNLFYWDF CULLENFacility:A1Gvxtl: 03-03-2023 End: 27-16-7606nlxlpinlbeKM DAVID HOY .Facility:T1Yrnle: 08-50-4511Duqvxashz for general adult medical examination without abnormal findingsDR DAVID HOY . [facility]-23[facility]2023 End: 36-13-2198vknrzsnrnaDL DAVID HOY .Facility:S1Nqwgw: 02-23-2023 End: 22-44-5430Adbcuugaj for general adult medical examination without abnormal findingsDR DAVID HOY .Facility:V0Bvocm: 12-23-2022 End: 69-87-1452zdszuauvlvWZ DAVID HOY .Facility:V1Cdcqv: 12-02-2022 End: 66-99-6679nxaejxkjgcKC DAVID HOY .Facility:O9Qjwtr: 11-28-2022 End: 28-07-6737qjrsusdusjIS DAVID HOY .Facility:R1Kodqw: 11-19-2022 End: 78-28-4114gudfaomjagXA DAVID HOY .Facility:T0Fxcaa: 11-12-2022 End: 35-30-9108ycnfpjktmqRN DAVID HOY .Facility:L6Noopl: 21-12-7047Pzkxghjsb for preprocedural laboratory examinationPETER D [facility] Start: 10-30-2022 End: 05-27-1173rtkhwccmweED DAVID HOY .Facility:S9Lfuon: 10-20-2022 End: 64-95-9556rdeesbibmaPH DAVID HOY .Facility:Y8Iufnk: 10-15-2022 End: 89-85-2113abiioenkevLQ DAVID HOY .Facility:G0Tilbi: 10-15-2022 End: 18-24-0227Wamjzrpae for preprocedural laboratory examinationDR DAVID HOY .Facility:A3Gwnvj: 01-64-0546Fhepjzfdf for other preprocedural examinationPETER D [facility]: 10-08-2022 End: 48-82-7014juhhjxinwcYK DAVID HOY .Facility:E3Fuflk: 10-08-2022 End: 96-68-0356Zprzntgvc for other preprocedural examinationDR DAVID HOY . Facility:H0Nmzxv: 06-25-2022 End: 39-71-8062vyrdmhysjfTH DAVID HOY .Facility:A0Lgquo: 03-26-2022 End: 32-94-6593mtokbghckxPD DAVID HOY .Facility:R6Bgane: 09-29-2017 End: 87-67-3779UtnzwbjmlbLCJGWXJ PHYSICIANFacility:[facility]: 09-28-2017 End: 77-19-1246WfduaufmbtLJMQXGK PHYSICIANFacility:[facility] Procedures DateProcedureProcedure DetailPerforming ClinicianStart: 73-16-1369Qfvmkhfrztg Rene Oseguera MD Work Phone: Start: 03-69-5503EndyhselujzTyzzej Timmis Start: 31-32-3574Zkmrxp of breastHilary Timmis Start: 44-15-9446Culxzrvcrierc of median nerveHilary Timmis comment on above:leftStart: 28-09-4196Hzbxbrht of lipomaHilary Timmis comment on above:axillaStart: 66-07-4044Beaoeegdadq Amrita Timmis Start: 90-02-3835GtimtjddsxttarjvrnkyltqrsnWyzxmm Timmis arthroscopy of shoulderHilary Timmis comment on above:rightCholecystectomyHilary Timmis History of surgical procedure on cervical spineHilary Timmis Plan of Treatment DateCare ActivityDetailAuthorStart: 10-28-5528Yzeeixsnw for malignant neoplasm of colonUnMarietta Osteopathic Clinic: 82-55-1015Zrflhkvub vaccination Influenza Vaccine (Season Ended)[facility]: 77-96-5777TXERS-19 Vaccine ( season)COVID-19 Vaccine ( season)[facility]: 35-74-0338Jqrzaw Vaccines (1 of 2)Zoster Vaccines (1 of 2)[facility]: 2004 Screening for malignant neoplasm of breastMammogramUnMarietta Osteopathic Clinic: 50-58-9578GPzN/Tdap/Td Vaccines (1 - Tdap)DTaP/Tdap/Td Vaccines (1 - Tdap)[facility]: 20-94-0284Lrgsprgdb for malignant neoplasm of cervixUnMarietta Osteopathic Clinic: 1983 Hepatitis B Vaccines (1 of 3 - 19+ 3-dose series)Hepatitis B Vaccines (1 of 3 - 19+ 3-dose series)[facility]: 15-74-7624Meivdorvo C screeningHepatitis C ScreeningUnMarietta Osteopathic Clinic: 1965 MMR Vaccines (1 of 1 - Standard series)MMR Vaccines (1 of 1 - Standard series) [facility]: 43-90-0734BLE screeningHIV Screening [facility]: 50-21-7644Aobyk panelLipid Panel [facility]: 12-28-4064Zwstwgwfo for malignant neoplasm of colonOhioHealth Nelsonville [facility]: 79-36-5216Drbxgs Adult PhysicalYearly Adult PhysicalUnGrand Lake Joint [facility] Immunizations Immunization DateImmunizationNotesCare GognddwvRkykfejs50-74-5827vlapxsqtr virus vaccine, unspecified formulationRene Oseguera MD Work Phone: [facility] Work Phone: [phone]-QdJ-5 (COVID-19) Ad26 vaccine, recombinantHilary Timmis [phone]-YqbbuUpper Valley Medical Center03-20-2021 SARS-CoV-2 (COVID-19) Ad26 vaccine, recombinantHilary Timmis [phone]-GyrysUpper Valley Medical Center Payers DatePayer CategoryPayerPolicy [id number] Health InsuranceCIGNA [facility] [employer] [employer] [id number] 2013-Present [id number] T[place] Madrigal [id number] Health [id number] 2.840.1.423189.3.579.2.593 [id number] 2.0.1.184077.3.57[id number] 2.0.1.636415.3.57[id number] 2.0.1.832819.3.57[id number] 2.16.840.1.610978.3.57[id number] 2.16.840.1.474267.3.57[id number] 2.16.840.1.411155.3.57[id number] 2.16.840.1.694711.3.57[id number] 2.16.840.1.166365.3.57[id number] 2.16.840.1.019449.3.57[id number] 2.16.840.1.626786.3.57[id number] 2.16840.1.199719.3.57[id number] 2.16.840.1.951849.3.57[id number] 2.16.840.1.923821.3.57[id number] 2.840.1.362990.3.57[id number] 2.16840.1.751784.3.579.2.463928-31-9586Xxbnhtw3361006 2.16840.1.560827.3.57[id number] 2.16840.1.563512.3.579.2.531538-89-2344Tgzkcye Health [id number] Social History DateTypeDetailFacilityStart: 09-03-2021 End: 44-96-9592Jjabqvf smoking statusNever smoked tobacco (finding)[facility] RehabilitationTobacco smoking statusNeverChildren'S Hospital For Rehabilitation Start: 08-87-4095Oyu Assigned At BirthFemalMartins Ferry Hospitaltart: 63-13-4961Lkohwev use and exposureSmokeless tobacco non-userEast [facility] Hospital Work Phone: Start: 32-99-0877Mxwalokni beverage intakeCurrent drinker of alcohol (finding)[facility] Work Phone: Start: 20-58-8732Fmcaibc of Social functionUnGrand Lake Joint [facility] District Memorial Hospital Work Phone: Start: 11-73-4325Nnb assigned at birthNot on file [facility] Work Phone: Start: 05-11-2024 End: 53-65-0451Issrgvcf to SARS-CoV-2 (event)Not sureEast [facility] City Hospital Clinical Notes 03-26-2022 to 05-21-2024 Note Date & LudxXdrrLakvxmza78-92-5399 History of Present illness Narrative* Rene Oseguera MD - 05/21/2024 8:30 AM EDT Chief Complaint: Cough History Of Present Illness: [...] is something in her throat. In November she was seen and givenoral antibiotic therapy. Her cough continued and she [...] espitia negative outside of that stated in thehistory of present illness. Active Problems: Thyrotoxicosis (CMS/HCC) [...] membranes, normal floor of mouth/tongue/OP, no masses orlesions are noted. PHARYNGEAL BUSH AND NASOPHARYNX: No masses noted. NECK/LYMPH: No LAD, no thyroid masses. LARYNX: Could not directly visualize transorally. SINONASAL ENDOSCOPY (CPT 87197): To better evaluate the patient's symptoms, sinonasal [...] and we discussed some challenges resolving this exclusivelythrough endoscopic sinus surgery. The biggest risk that [...] or face, need for revision surgery, and unexpectedrisks. We discussed septoplasty itself including the risks, [...] be very unlikely there would be a concerningmass lesion as this issue completely resolves and then recurs. If she undergoes workup for a primary lung issue and this is found to be normal I think undergoing endoscopic sinus surgery would make a lot of sense as, based on her CT, she certainly has significant ongoing inflammation. I provided her with the direct contact information for my membership secretary and I am happy to set up a virtual visit or, if she desires, coordinate surgical intervention. All questions were answered. Between dfab-ps-sfje contact, review of the medical record, and documentation I spent greater than 60 minutes on this evaluation during the day of service. Signature: Rene Oseguera MD documented in this [facility] Work Phone: [phone]) 587-581204-18-2023 NotePROCEDURE: XR FOOT LT MIN 3 VIEWS DATE: 03/10/2023 2:20 PM [...] Electronically authenticated by: BUZZ ROCA Date: 2023-03-10 15:46[facility]01-31-2023 NotePROCEDURE: XR FOOT LT MIN 3 VIEWS HISTORY: Pain in left [...] Electronically authenticated by: AMADOU SCRUGGS Date: 2022-12-23 10:52[facility]01-10-2023 NotePROCEDURE: XR FOOT LT MIN 3 VIEWS HISTORY: Pain in left [...] Electronically authenticated by: AMADOU SCRUGGS Date: 2022-12-02 13:46[facility]12-23-2022 NotePROCEDURE: XR FOOT LT MIN 3 VIEWS HISTORY: Pain in left [...] Electronically authenticated by: AMADOU SCRUGGS Date: 2022-11-13 22:19[facility]11-28-2022 NotePROCEDURE: XR FOOT LT 2V HISTORY: Pain COMPARISON: XR foot bilateral [...] Electronically authenticated by: AMADOU SCRUGGS Date: 2022-10-20 20:02[facility]11-28-2022 NotePROCEDURE: XR FOOT LT MIN 3 VIEWS HISTORY: Pain COMPARISON: XR [...] Electronically authenticated by: AMADOU SCRUGGS Date: 2022-10-20 16:31[facility]08-04-2022 NotePROCEDURE: XR ANKLE RT MIN 3 VIEWS, XR [...] Electronically authenticated by: AMADOU SCRUGGS Date: 2022-06-26 06:40[facility]08-04-2022 NotePROCEDURE: XR ANKLE RT MIN 3 VIEWS, XR [...] Electronically authenticated by: AMADOU SCRUGGS Date: 2022-06-26 06:40[facility]05-04-2022 NotePROCEDURE: XR FOOT RT MIN 3 VIEWS HISTORY: Pain in right [...] Electronically authenticated by: AMADOU SCRUGGS Date: 2022-03-26 10:08[facility] No data available for this section [facility] RehabilitationEvaluation [facility]* Diagnosis Chronic maxillary sinusitis- Primary Deviated nasal septum Chronic cough Cough Chronic frontal sinusitis documented in this encounter [facility] Work Phone: Hospital Discharge instructions No data available for this section [facility] RehabilitationProgress note No data available for this section [facility] Summary Purpose Family History No Family History [...] section and content) DATE CREATED AUTHOR 05/18/2018 [facility] DATE CREATED AUTHOR AUTHOR'S ORGANIZ ATION 03/15/2023 [facility] DATE CREATED AUTHOR AUTHOR'S ORGANIZ ATION 04/11/2024 [facility] DATE CREATED AUTHOR AUTHOR'S ORGANIZ ATION 04/15/2024 [facility] DATE CREATED AUTHOR AUTHOR'S ORGANIZ ATION 05/22/2024 [facility] Patient Care team informatio n (unrecognized section and content) Personnel Name: David Albrecht MD Address: Address: [address] [place] [address] Reason for Visit (unrecogniz ed section and content) ReasonCommentsNew Patient Visit FOR RECORDS PERTAINING TO PATIENTS [...] BE BASED ON THE PRIMARY CLINICAL RECORDS. [facility] [employer] [facility]. provides no warranty or guarantee of the accuracy or completeness of information in this document.
== END 2025-09-13 13:15 | disposition home or self-care (01) ==
PROVIDERS: PCP Family Medicine; Visit Provider Family Medicine
DX: M25.511 Pain in right shoulder (principal); M19.019 Primary osteoarthritis, unspecified shoulder; M75.121 Complete rotator cuff tear or rupture of right shoulder, not specified as traumatic
CPT/HCPCS: 73221